=== PATIENT | female | born 1930 | race Caucasian/White ===

== ENCOUNTER 2016-08-16 22:23 | Emergency (ER) | payer MEDICARE, OTHER ==
[2016-08-16 22:31] VITALS: BP 125/61
--- NOTE | 2016-08-16 22:45 | EDM.PDOC ---
ED HPI EYE COMPLAINT - General Chief Complaint: Eye Problems Stated Complaint: L EYE PAIN Time Seen by Provider: 08/16/16 22:35 Source: Reports: Patient History Limitations: Reports: No limitations - History of Present Illness INITIAL COMMENTS - FREE TEXT/NARRATIVE: c/o gritty dry feeling to left eye for past 3 weeks has been using OTC moisture drops, Started to itch on Tuesday worse tonight and eyelid now red. No change in vision Severity: moderate Associated Symptoms (Eye): Reports: itching, eyelid redness. Denies: eyelid swelling, eyelid matting, orbital redness, FB sensation, decreased/blurred, sensitivity to light, curtain - Related Data Allergies/ADRs: Allergies BULMARO Inhibitors Allergy (Verified 08/16/16 22:31) Other Please update and replace other in Reaction field and remove this entry. Updated 02/07/2014 by SHANT due to system deletion of invalid similar allergy lisinopril Allergy (Verified 08/16/16 22:31) Cough losartan potassium [From Cozaar] Allergy (Verified 08/16/16 22:31) Cannot Remember Home Meds: Ambulatory Orders Medication Instructions Recorded Confirmed Acetaminophen [Pain & Fever] 500 mg PO ASDIRECTED PRN 09/28/13 08/16/16 Loratadine [Claritin RediTabs] 10 mg PO DAILY PRN 09/28/13 08/16/16 Metoprolol Tartrate 100 mg PO DAILY 09/28/13 08/16/16 Multivitamin [Multi-Vitamin Daily] 0.5 each PO DAILY 09/28/13 08/16/16 Warfarin [Coumadin] 2 mg PO DAILY 09/28/13 08/16/16 Ca Carb & Gluc/Mag Ox & Gluc 1 tab PO DAILY 02/20/15 08/16/16 [Calcium Magnesium Caplet] Calcium Carbonate/Vitamin D3 1 each PO DAILY 02/20/15 08/16/16 [Oyster Shell Calcium-Vit D Tab] Metoprolol Tartrate 50 mg PO DAILY 10/22/15 08/16/16 Aspirin [Halfprin] 81 mg PO DAILY 04/04/16 08/16/16 Citalopram Hydrobromide 10 mg PO DAILY 04/04/16 08/16/16 [Citalopram HBr] Famotidine [Take Home: Famotidine 20 mg PO BID 04/04/16 08/16/16 20 MG, 3 Tab Pack] Simvastatin [Zocor] 40 mg PO BEDTIME 04/04/16 08/16/16 Furosemide [Lasix] 20 mg PO BIDDIURETIC #30 tablet 04/07/16 08/16/16 Potassium Chloride [Klor-Con M20] 20 meq PO BID 08/16/16 08/16/16 Past Medical History HEENT History: Reports: Impaired vision Cardiovascular History: Reports: Blood clots/VTE/DVT, High cholesterol, Hypertension, [place], Stents Other Cardiovascular History: valvular heart disease Gastrointestinal History: Reports: GERD Genitourinary History: Reports: Other (see below) Other Genitourinary History: renal 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 Dermatologic History: Reports: Other (see below) Other Dermatologic History: Vein surg. 50 years ago - Infectious Disease History Infectious Disease History: Reports: Chicken pox, Measles, Mumps, Pertussis ( whooping cough) - Past Surgical History HEENT Surgical History: Reports: Cataract surgery Cardiovascular Surgical History: Reports: Coronary artery stent Musculoskeletal Surgical History: Reports: Hip replacement Social & Family History - Tobacco Use Smoking Status *Q: Never Smoker Second Hand Smoke Exposure: No - Caffeine Use Caffeine Use: Reports: None - Recreational Drug Use Recreational Drug Use: No ED ROS GENERAL - Review of Systems Review Of Systems: See Below HEENT: Reports: Other (left ey itches). Denies: Eye discharge, Vision change Skin: Reports: erythema (right eye lid) Neurological: Denies: Headache ED EXAM GENERAL W FULL EYE - Physical Exam Exam: See Below Exam Limited By: No limitations General Appearance: alert, mild distress Eye Exam: right eye: normal inspection, bilateral eye: EOMI, normal fundi, PERRL Eyelids: right: normal appearance, left: erythema Conjunctiva & Sclera: bilateral: normal appearance Extraocular Movements: bilateral: intact Pupillary Size: bilateral: 4 mm Pupillary Reaction: bilateral: brisk Anterior Chamber: bilateral: normal appearance Posterior Chamber: bilateral: normal funduscopic Ears: normal external exam, normal TMs Throat/Mouth: Normal inspection Head: atraumatic, normocephalic Neck: normal inspection Respiratory/Chest: no respiratory distress Cardiovascular: normal peripheral pulses Neurological: alert, oriented Skin Exam: Warm, Dry, Erythema (left upper and lower lids) Course - Vital Signs Last Recorded V/S: Last Vital Signs Temp 98.3 F 08/16/16 22:26 Pulse 93 08/16/16 22:26 Resp 18 08/16/16 22:26 BP 125/61 08/16/16 22:26 Pulse Ox 98 08/16/16 22:26 - Orders/Labs/Meds Meds: Medications Discontinued Medications Generic Name Dose Route Start Last Admin Trade Name Freq PRN Reason Stop Dose Admin Bacitracin/Polymyxin B Sulfate Confirm 08/16/16 23:25 08/16/16 23:35 Polysporin Ophth Oint Administered 08/16/16 23:26 Not Given Dose 3.5 gm .ROUTE .STK-MED ONE Departure - Departure Time of Disposition: 23:10 Disposition: Home, Self-Care 01 Condition: good Clinical Impression: Blepharitis of eyelid of left eye Qualifiers: Blepharitis type: unspecified type Eyelid: both upper and lower Qualified Code( s): H01.004 - Unspecified blepharitis left upper eyelid Instructions: Blepharitis, [id number] Referrals: Cheri Bailey MD [Primary Care Provider] - Forms: ED Department Discharge Additional Instructions: polymixin/neomycin/bacitracin eye ointment 4 times daily for one week follow up with eye Dr this week to recheck avoid rubbing eye
[2016-08-16] MEDS ORDERED: Bacitracin/Polymyxin B Ophth Oint 3.5 GM Tube EYELF ONE (23:25)
[2016-08-16] MEDS ORDERED: Bacitracin/Polymyxin B Ophth Oint 3.5 GM Tube ONE (23:25)
== END 2016-08-16 23:32 | disposition home or self-care (01) ==
LOC: DL.ED 22:23
DX: H01.004 Unspecified blepharitis left upper eyelid (principal); H54.7 Unspecified visual loss; E78.00 Pure hypercholesterolemia, unspecified; Z95.5 Presence of coronary angioplasty implant and graft; I11.9 Hypertensive heart disease without heart failure; Z88.8 Allergy status to other drugs, medicaments and biological substances; Z79.899 Other long term (current) drug therapy
CPT/HCPCS: 99282; A9270; 99283

== ENCOUNTER 2016-08-21 17:41 | Observation (INO) | payer MEDICARE, OTHER ==
--- NOTE | 2016-08-21 19:34 | EDM.PDOC ---
ED HPI GENERAL MEDICAL PROBLEM - General Chief Complaint: General Stated Complaint: PROBLEMS WALKING Time Seen by Provider: 08/21/16 19:31 Source of Information: Reports: Patient, Family History Limitations: Reports: No limitations - History of Present Illness INITIAL COMMENTS - FREE TEXT/NARRATIVE: Pt states been having leg weakness past 4 days, feels there is no strength, denies CP/SOB. but has h/o poor kidney function BUN last month was 83 per daughter. denies vertigo. appetite NL. - Related Data Allergies Allergy/AdvReac Type Severity Reaction Status Date / Time BULMARO Inhibitors Allergy Other Verified 08/21/16 19:05 lisinopril Allergy Cough Verified 08/21/16 19:05 losartan potassium Allergy Cannot Verified 08/21/16 19:05 [From [facility]] Remember Home Meds: Home Meds Acetaminophen [Pain & Fever] 500 mg PO ASDIRECTED PRN 09/28/13 [History] Loratadine [Claritin RediTabs] 10 mg PO DAILY PRN 09/28/13 [History] Metoprolol Tartrate 100 mg PO DAILY 09/28/13 [History] Multivitamin [Multi-Vitamin Daily] 0.5 each PO DAILY 09/28/13 [History] Warfarin [Coumadin] 2 mg PO DAILY 09/28/13 [History] Ca Carb & Gluc/Mag Ox & Gluc [Calcium Magnesium Caplet] 1 tab PO DAILY 02/20/15 [History] Calcium Carbonate/Vitamin D3 [Oyster Shell Calcium-Vit D Tab] 1 each PO DAILY [History] Metoprolol Tartrate 50 mg PO DAILY 10/22/15 [History] Aspirin [Halfprin] 81 mg PO DAILY 04/04/16 [History] Citalopram Hydrobromide [Citalopram HBr] 10 mg PO DAILY 04/04/16 [History] Famotidine [Take Home: Famotidine 20 MG, 3 Tab Pack] 20 mg PO BID 04/04/16 [ History] Simvastatin [Zocor] 40 mg PO BEDTIME 04/04/16 [History] Potassium Chloride [Klor-Con M20] 20 meq PO BID 08/16/16 [History] Furosemide [Lasix] 20 mg PO DAILY 08/21/16 [History] Past Medical History HEENT History: Reports: Impaired vision Cardiovascular History: Reports: Blood clots/VTE/DVT, High cholesterol, Hypertension, [place], Stents Other Cardiovascular History: valvular heart disease Gastrointestinal History: Reports: GERD Genitourinary History: Reports: Other (see below) Other Genitourinary History: 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 Dermatologic History: Reports: Other (see below) Other Dermatologic History: Vein surg. 50 years ago - Infectious Disease History Infectious Disease History: Reports: Chicken pox, Measles, Mumps, Pertussis ( whooping cough) - Past Surgical History HEENT Surgical History: Reports: Cataract surgery Cardiovascular Surgical History: Reports: Coronary artery stent Musculoskeletal Surgical History: Reports: Hip replacement Social & Family History - Family History Family Medical History: Noncontributory - Tobacco Use Smoking Status *Q: Never Smoker Second Hand Smoke Exposure: No - Caffeine Use Caffeine Use: Reports: Coffee - Recreational Drug Use Recreational Drug Use: No ED ROS GENERAL - Review of Systems Review Of Systems: ROS reveals no pertinent complaints other than HPI. ED EXAM, GENERAL - Physical Exam Exam: See Below Exam Limited By: No limitations General Appearance: alert, WD/WN, no apparent distress Eye Exam: bilateral eye: PERRL (pupils ess ER @ 4mm) Ears: hearing grossly normal Throat/Mouth: Normal voice, No airway compromise Head: atraumatic Neck: non-tender, full range of motion Respiratory/Chest: no respiratory distress, lungs clear, normal breath sounds, no accessory muscle use Cardiovascular: regular rate, rhythm GI/Abdominal: soft, non tender Extremities: normal inspection, no pedal edema Neurological: alert, oriented, normal cognition, normal gait, no motor/sensory deficits Psychiatric: normal affect, normal mood Skin Exam: Warm, Dry Lymphatic: no adenopathy Course - Vital Signs Last Recorded V/S: Last Vital Signs Temp 36.4 C 08/21/16 20:38 Pulse 80 08/21/16 20:38 Resp 18 08/21/16 20:38 BP 137/67 08/21/16 20:38 Pulse Ox 96 08/21/16 20:38 - Orders/Labs/Meds Orders: Active Orders 24 hr Category Date Time Status Head wo Cont [CT] Urgent Exams 08/21/16 19:19 Taken Labs: Laboratory Tests 08/21/16 08/21/16 08/21/16 Range/Units 19:26 19:26 19:26 WBC 8.2 (5.0-10.0) 10^3/uL RBC 5.99 H (4.2-5.4) 10^6/uL Hgb 15.2 (12.0-16.0) g/dL Hct 45.2 (37.0-47.0) % MCV 75.5 L (80-100) fL MCH 25.4 L (27.0-34.0) pg MCHC 33.6 (33.0-35.0) g/dL Plt Count 168 (150-450) 10^3/uL Neut % (Auto) 63.5 (42.2-75.2) % Lymph % (Auto) 27.8 (20.5-50.1) % [place] % (Auto) 7.5 (2-8) % Eos % (Auto) 0.8 L (1.0-3.0) % Baso % (Auto) 0.4 (0.0-1.0) % PT 20.6 H (9.0-12.0) SEC INR 2.0 H (0.9-1.2) Sodium 136 (135-145) mmol/L Potassium 2.8 L (3.6-5.0) mmol/L Chloride 89 L (101-111) mmol/L Carbon Dioxide 35.0 H (21.0-31.0) mmol/L Anion Gap 14.8 BUN 73 H (7-18) mg/dL Creatinine 2.3 H (0.6-1.3) mg/dL Est Cr Clr Drug Dosing 14.40 mL/min Estimated GFR (MDRD) 20 BUN/Creatinine Ratio 31.73 Glucose 223 H (74-105) mg/dL Calcium 9.4 (8.4-10.2) mg/dl Total Bilirubin 0.9 (0.2-1.0) mg/dL AST 39 (10-42) IU/L ALT 34 (10-60) IU/L Alkaline Phosphatase 92 (42-121) IU/L Troponin I 0.03 H* (0.00-0.02) ng/ml B-Natriuretic Peptide (0-100) pg/ml Total Protein 7.7 (6.7-8.2) g/dl Albumin 3.8 (3.2-5.5) g/dl Globulin 3.9 Albumin/Globulin Ratio 0.97 08/21/16 Range/Units 19:26 WBC (5.0-10.0) 10^3/uL RBC (4.2-5.4) 10^6/uL Hgb (12.0-16.0) g/dL Hct (37.0-47.0) % MCV (80-100) fL MCH (27.0-34.0) pg MCHC (33.0-35.0) g/dL Plt Count (150-450) 10^3/uL Neut % (Auto) (42.2-75.2) % Lymph % (Auto) (20.5-50.1) % [place] % (Auto) (2-8) % Eos % (Auto) (1.0-3.0) % Baso % (Auto) (0.0-1.0) % PT (9.0-12.0) SEC INR (0.9-1.2) Sodium (135-145) mmol/L Potassium (3.6-5.0) mmol/L Chloride (101-111) mmol/L Carbon Dioxide (21.0-31.0) mmol/L Anion Gap BUN (7-18) mg/dL Creatinine (0.6-1.3) mg/dL Est Cr Clr Drug Dosing mL/min Estimated GFR (MDRD) BUN/Creatinine Ratio Glucose (74-105) mg/dL Calcium (8.4-10.2) mg/dl Total Bilirubin (0.2-1.0) mg/dL AST (10-42) IU/L ALT (10-60) IU/L Alkaline Phosphatase (42-121) IU/L Troponin I (0.00-0.02) ng/ml B-Natriuretic Peptide 166 H (0-100) pg/ml Total Protein (6.7-8.2) g/dl Albumin (3.2-5.5) g/dl Globulin Albumin/Globulin Ratio - Re-Assessments/Exams Free Text/Narrative Re-Assessment/Exam: 08/21/16 20:47 results discussed with Pt & daughter. case discussed with Dr Lyons who kindly admitted Pt to observation. Departure - Departure Time of Disposition: 20:48 Disposition: Refer to Observation Condition: good Clinical Impression: CHF, Congestive heart failure, Hypokalemia, Orthopnea Forms: ED Department Discharge - My Orders Last 24 Hours: My Active Orders 08/21/16 19:19 Head wo Cont [CT] Urgent - Assessment/Plan Last 24 Hours: My Active Orders 08/21/16 19:19 Head wo Cont [CT] Urgent
[2016-08-21] MEDS ORDERED: Zolpidem 5 MG Tab PO PRN (22:02)
[2016-08-21] MEDS ORDERED: Ondansetron 4 MG Tab.DIS PO PRN (22:02)
[2016-08-21] MEDS ORDERED: Sodium Chloride 0.9% 10 ML Syringe FLUSH PRN (22:02)
--- NOTE | 2016-08-21 22:24 | PCM.HP ---
H&P History of Present Illness - General Date of Service: 08/21/16 Admit Problem/Dx: Admission Diagnosis/Problem Admission Diagnosis/Problem Weakness Source of Information: Patient - History of Present Illness Initial Comments - Free Text/Narative: the patient presented with about 5-6 days of progressive weakness She has been living independently with sister She feels that the weakness is worse with activity, has difficulty moving at home. The patient has a history of chronic kidney disease stage III She has been working with nephrology to optimize diuretics Due to elevated BUN the patient's metolazone was discontinued the beginning of July Subsequently she noted increased swelling and the metolazone was restarted on 23 July The patient has had borderline hypokalemia at that time She continued potassium supplement but did not increase the dose. - Related Data Allergies/Adverse Reactions: Allergies Allergy/AdvReac Type Severity Reaction Status Date / Time BULMARO Inhibitors Allergy Other Verified 08/21/16 19:05 lisinopril Allergy Cough Verified 08/21/16 19:05 losartan potassium Allergy Cannot Verified 08/21/16 19:05 [[facility]] Remember Home Medications: Home Meds Acetaminophen [Pain & Fever] 500 mg PO ASDIRECTED PRN 09/28/13 [History] Loratadine [Claritin RediTabs] 10 mg PO DAILY PRN 09/28/13 [History] Multivitamin [Multi-Vitamin Daily] 0.5 each PO DAILY 09/28/13 [History] Warfarin [Coumadin] 3 mg PO DAILY 09/28/13 [History] Ca Carb & Gluc/Mag Ox & Gluc [Calcium Magnesium Caplet] 1 tab PO DAILY 02/20/15 [History] Calcium Carbonate/Vitamin D3 [Oyster Shell Calcium-Vit D Tab] 1 each PO DAILY [History] Citalopram Hydrobromide [Citalopram HBr] 10 mg PO DAILY 04/04/16 [History] Famotidine [Take Home: Famotidine 20 MG, 3 Tab Pack] 20 mg PO BID 04/04/16 [ History] Potassium Chloride [Klor-Con M20] 20 meq PO BID 08/16/16 [History] Aspirin [Ecotrin] 81 mg PO DAILY 08/21/16 [History] Furosemide [Lasix] 40 mg PO DAILY 08/21/16 [History] Metolazone [Zaroxolyn] 2.5 mg PO .Q48H 08/21/16 [History] Metoprolol Tartrate 50 mg PO ACDINNER 08/21/16 [History] Metoprolol Tartrate 100 mg PO DAILY 08/21/16 [History] atorvaSTATin [Lipitor] 40 mg PO BEDTIME 08/21/16 [History] Past Medical History HEENT History: Reports: Impaired vision Cardiovascular History: Reports: Blood clots/VTE/DVT, High cholesterol, Hypertension, [place], Stents Other Cardiovascular History: valvular heart disease Respiratory History: Reports: None Gastrointestinal History: Reports: GERD Genitourinary History: Reports: Chronic renal insuffiency, Other (see below) Other Genitourinary History: 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 Dermatologic History: Reports: Other (see below) Other Dermatologic History: Vein surg. 50 years ago - Infectious Disease History Infectious Disease History: Reports: Chicken pox, Measles, Mumps, Pertussis ( whooping cough) - Past Surgical History HEENT Surgical History: Reports: Cataract surgery Cardiovascular Surgical History: Reports: Coronary artery stent Musculoskeletal Surgical History: Reports: Hip replacement Social & Family History - Family History Family Medical History: Noncontributory - Tobacco Use Smoking Status *Q: Never Smoker Second Hand Smoke Exposure: No - Caffeine Use Caffeine Use: Reports: Coffee - Recreational Drug Use Recreational Drug Use: No H&P Review of Systems - Review of Systems: Review Of Systems: See Below General: Denies: fever Pulmonary: Denies: Shortness of Breath, Wheezing Cardiovascular: Denies: edema Gastrointestinal: Denies: Abdominal pain Genitourinary: Denies: dysuria Psychiatric: Denies: confusion Neurological: Denies: Dizziness Exam - Exam Exam: See Below - Vital Signs Vital Signs: Last Vital Signs Temp 36.9 C 08/21/16 21:14 Pulse 80 08/21/16 21:14 Resp 16 08/21/16 21:14 BP 145/60 H 08/21/16 21:14 Pulse Ox 99 08/21/16 21:14 Weight: 70.307 kg - Exam Quality Assessment: No: supplemental oxygen General: alert, oriented HEENT: EOMI Neck: supple Lungs: Clear to auscultation, Normal respiratory effort Cardiovascular: regular rate, regular rhythm Abdomen: normal bowel sounds, soft Back Exam: normal inspection Extremities: normal inspection. No: edema Neuro Extensive - Mental Status: alert, oriented x3, normal mood/affect, normal cognition, memory intact Neuro Extensive - Motor, Sensory, Reflexes: CN II-XII intact Psychiatric: alert, normal affect, normal mood - Patient Data Result Diagrams: 08/21/16 19:26 08/21/16 19:26 *Q Meaningful Use (ADM) - VTE *Q VTE Criteria *Q: - Stroke *Q Stroke Criteria *Q: - AMI *Q AMI Criteria *Q: - Problem List (1) Hypokalemia SNOMED Code(s): 82696871 ICD Code: E87.6 - HYPOKALEMIA Status: Acute Current Visit: Yes (2) Atrial fibrillation SNOMED Code(s): 72588912 ICD Code: I48.91 - UNSPECIFIED ATRIAL FIBRILLATION Status: Acute Current Visit: No Qualifiers: Atrial fibrillation type: unspecified Qualified Code(s): I48.91 - Unspecified atrial fibrillation (3) Hypertension SNOMED Code(s): 15298174 ICD Code: I10 - ESSENTIAL (PRIMARY) HYPERTENSION Status: Acute Current Visit: No Qualifiers: Hypertension type: unspecified secondary hypertension Qualified Code(s): I15.9 - Secondary hypertension, unspecified Problem List Initiated/Reviewed/Updated: Yes Orders Last 24hrs: Active Orders 24 hr Category Date Time Status Patient Status [ADT] Routine ADT 08/21/16 22:05 Ordered Antiembolic Devices [RC] PER UNIT ROUTINE Care 08/21/16 22:06 Ordered Blood Glucose Check, Bedside [RC] QIDACANDBED Care 08/21/16 22:02 Ordered Oxygen Therapy [RC] PRN Care 08/21/16 22:05 Ordered Peripheral IV Care [RC] . DIRECTED Care 08/21/16 22:06 Ordered Telemetry Monitoring [Cardiac Monitoring] [RC] . Care 08/21/16 21:30 Ordered DIRECTED Up With Assistance [RC] ASDIRECTED Care 08/21/16 22:02 Ordered VTE/DVT Education [RC] PER UNIT ROUTINE Care 08/21/16 22:05 Ordered Vital Signs [RC] Q4H Care 08/21/16 22:05 Ordered Regular Diet [DIET] Diet 08/21/16 Breakfast Ordered BASIC METABOLIC PANEL,BMP [CHEM] AM Lab 08/22/16 05:15 Ordered CBC WITH AUTO DIFF [HEME] AM Lab 08/22/16 05:15 Ordered INR,PT,PROTHROMBIN TIME [COAG] AM Lab 08/22/16 05:15 Ordered TROPONIN I [CHEM] AM Lab 08/22/16 05:11 Ordered Acetaminophen [Tylenol] Med 08/21/16 22:02 Ordered 650 mg PO Q4H PRN Aspirin [Halfprin] Med 08/22/16 09:00 Ordered 81 mg PO DAILY Bacitracin/Polymyxin B [Polysporin Ophth Oint] Med 08/21/16 23:00 Ordered 1 gm EYELF TID Citalopram Hydrobromide [Citalopram HBr] Med 08/22/16 09:00 Ordered 10 mg PO DAILY Famotidine [Pepcid] Med 08/22/16 09:00 Pending 20 mg PO BID Furosemide [Lasix] Med 08/22/16 09:00 Ordered 40 mg PO DAILY Insulin Aspart [NovoLOG] Med 08/22/16 07:00 Ordered See Protocol SUBCUT QIDACANDBED Metolazone [Zaroxolyn] Med 08/22/16 09:00 Ordered 2.5 mg PO .Q48H Metoprolol Tartrate Med 08/22/16 09:00 Ordered 100 mg PO DAILY Metoprolol Tartrate [Lopressor] Med 08/22/16 17:00 Ordered 50 mg PO ACDINNER Multivitamin [Multi-Vitamin Daily] Med 08/22/16 09:00 Ordered 0.5 each PO DAILY Ondansetron [Zofran ODT] Med 08/21/16 22:02 Ordered 4 mg PO Q4H PRN Potassium Chloride [KCl 10 MEQ in Water 100 ML] 10 meq Med 08/21/16 22:15 Ordered Premix Bag 1 bag IV .Q2H Potassium Chloride [Klor-Con M20] Med 08/22/16 09:00 Stop Req 20 meq PO BID Potassium Chloride [Klor-Con M20] Med 08/22/16 08:00 Ordered 20 meq PO TIDAC Sodium Chloride 0.9% [Normal Saline] 1,000 ml Med 08/21/16 22:15 Ordered IV ASDIRECTED Sodium Chloride 0.9% [Saline Flush] Med 08/21/16 22:02 Ordered 10 ml FLUSH ASDIRECTED PRN Warfarin [Coumadin] Med 08/22/16 09:00 Ordered 3 mg PO DAILY Zolpidem [Ambien] Med 08/21/16 22:02 Ordered 5 mg PO BEDTIME PRN atorvaSTATin [Lipitor] Med 08/22/16 21:00 Ordered 40 mg PO BEDTIME Antiembolic Hose [OM.PC] Per Unit Routine Oth 08/21/16 22:06 Ordered Peripheral IV Insertion Adult [OM.PC] Routine Oth 08/21/16 22:02 Ordered Resuscitation Status Routine Resus Stat 08/21/16 22:02 Ordered Medication Orders Acetaminophen (Tylenol) 650 mg PO Q4H PRN PRN Reason: Pain (Mild 1-3)/fever Aspirin (Halfprin) 81 mg PO DAILY JHOAN Bacitracin/Polymyxin B Sulfate (Polysporin Ophth Oint) 1 gm EYELF TID JHOAN Citalopram Hydrobromide (Celexa) 10 mg PO DAILY JHOAN Famotidine (Pepcid) 20 mg PO BID JHOAN Furosemide (Lasix) 40 mg PO DAILY JHOAN Sodium Chloride (Normal Saline) 1,000 mls @ 30 mls/hr IV ASDIRECTED JHOAN Potassium Chloride 10 meq/ (Premix) 100 mls @ 50 mls/hr IV .Q2H JHOAN Insulin Aspart (Novolog) 0 unit SUBCUT QIDACANDBED JHOAN PRN Reason: Protocol Metolazone (Zaroxolyn) 2.5 mg PO .Q48H JHOAN Metoprolol Tartrate (Lopressor) 50 mg PO ACDINNER [facility] Multivitamins (Thera) 0.5 each PO DAILY [facility] Non-Formulary Medication (Atorvastatin [Lipitor]) 40 mg PO BEDTIME JHOAN Non-Formulary Medication (Metoprolol Tartrate) 100 mg PO DAILY JHOAN Non-Formulary Medication (Potassium Chloride [Klor-Con M20]) 20 meq PO TIDAC JHOAN Ondansetron HCl (Zofran Odt) 4 mg PO Q4H PRN PRN Reason: nausea, able to take PO Sodium Chloride (Saline Flush) 10 ml FLUSH ASDIRECTED PRN PRN Reason: Keep Vein Open Warfarin Sodium (Coumadin) 3 mg PO DAILY JHOAN Zolpidem Tartrate (Ambien) 5 mg PO BEDTIME PRN PRN Reason: Sleep Assessment/Plan Comment:: Weakness Likely due to hypokalemia No apparent CVA We'll monitor, treat with physical therapy Severe hypokalemia in the setting of chronic kidney disease stage III Likely due to diuretics We will replace it with IV potassium Increase p.o. supplement to 20 meq tid Recheck electrolytes in the morning Chronic kidney disease stage III For now continue diuretics, replace potassium, follow electrolytes Will follow up with nephrology Hyperglycemia With a history of impaired glucose tolerance Check blood sugars 4 times a day and use supplemental insulin as needed Coronary artery disease Troponin borderline This is likely secondary to renal insufficiency Monitor on telemetry Recheck troponin in the morning Treat with aspirin, metoprolol, Lipitor Hypertension Treat with metoprolol Atrial fibrillation Her rate is controlled with metoprolol Continue anticoagulation with Coumadin Recheck INR periodically DVT prophylaxis Full dose anticoagulation with Coumadin CODE STATUS was discussed with the patient and daughter Patient wished to be DNR
[2016-08-21] MEDS: Potassium Chloride 10 MEQ in Premix Bag 1 BAG IV SCH (22:57)
[2016-08-21] MEDS: Sodium Chloride 0.9% 1,000 ML IV SCH (23:00)
[2016-08-21] MEDS: Bacitracin/Polymyxin B Ophth Oint 3.5 GM Tube EYELF SCH (23:05)
[2016-08-21] MEDS: Acetaminophen 325 MG Tab PO PRN (23:05)
[2016-08-22] MEDS: Potassium Chloride 10 MEQ in Premix Bag 1 BAG IV SCH ×7 (01:03→16:58)
[2016-08-22] MEDS: Acetaminophen 325 MG Tab PO PRN (05:17)
[2016-08-22] MEDS ORDERED: Potassium Chloride 10 MEQ Tab.ER PO SCH (08:00)
[2016-08-22] MEDS: Potassium Chloride 10 MEQ Tab.ER PO SCH ×3 (08:14→17:16)
[2016-08-22] MEDS: Insulin Aspart 100 Units/ML 3 ML Pen SUBCUT SCH ×4 (08:15→21:18)
[2016-08-22] MEDS ORDERED: Metoprolol Succinate 50 MG Tab.ER PO SCH (09:00)
[2016-08-22] MEDS ORDERED: Famotidine 20 MG Tab PO SCH (09:00)
[2016-08-22] MEDS: Multivitamins,Therapeutic Tab PO SCH (09:17)
[2016-08-22] MEDS: Citalopram 20 MG Tab PO SCH (09:19)
[2016-08-22] MEDS: Metoprolol Tartrate 50 MG Tab PO SCH ×2 (09:21→17:19)
[2016-08-22] MEDS: Aspirin 81 MG Tab.EC PO SCH (09:23)
[2016-08-22] MEDS: Furosemide 40 MG Tab PO SCH (09:23)
[2016-08-22] MEDS: Bacitracin/Polymyxin B Ophth Oint 3.5 GM Tube EYELF SCH ×3 (09:24→21:23)
--- NOTE | 2016-08-22 10:04 | PCM.PN ---
- General Info Date of Service: 08/22/16 Subjective Update: had moderate leg cramps overnight, better with heat packs, no burning of the IV site no sob, no cp feeling better BSs have been elevated - Review of Systems General: Reports: Weakness. Denies: Fever Pulmonary: Denies: shortness of breath Cardiovascular: Denies: Chest Pain Gastrointestinal: Denies: Abdominal pain, Nausea, Vomiting Genitourinary: Denies: dysuria - Patient Data Vitals - most recent: Last Vital Signs Temp 36.4 C 08/22/16 07:29 Pulse 86 08/22/16 09:21 Resp 20 08/22/16 07:29 BP 118/52 L 08/22/16 09:21 Pulse Ox 98 08/22/16 07:29 Weight - most recent: 70.307 kg I&O - last 24 hours: Intake & Output 08/21/16 08/22/16 08/22/16 22:59 06:59 14:59 Intake Total 910 365 Output Total 400 Balance 510 365 Lab Results last 24 hrs: Laboratory Results - last 24 hr 08/22/16 08/22/16 08/22/16 Range/Units 06:00 06:00 06:00 WBC 6.9 (5.0-10.0) 10^3/uL RBC 5.77 H (4.2-5.4) 10^6/uL Hgb 14.7 (12.0-16.0) g/dL Hct 43.9 (37.0-47.0) % MCV 76.1 L (80-100) fL MCH 25.5 L (27.0-34.0) pg MCHC 33.5 (33.0-35.0) g/dL Plt Count 154 (150-450) 10^3/uL Neut % (Auto) 54.9 (42.2-75.2) % Lymph % (Auto) 35.2 (20.5-50.1) % [place] % (Auto) 8.2 H (2-8) % Eos % (Auto) 1.3 (1.0-3.0) % Baso % (Auto) 0.4 (0.0-1.0) % PT 20.3 H (9.0-12.0) SEC INR 2.0 H (0.9-1.2) Sodium 137 (135-145) mmol/L Potassium 3.2 L (3.6-5.0) mmol/L Chloride 90 L (101-111) mmol/L Carbon Dioxide 38.0 H (21.0-31.0) mmol/L Anion Gap 12.2 BUN 66 H (7-18) mg/dL Creatinine 2.2 H (0.6-1.3) mg/dL Est Cr Clr Drug Dosing 15.06 mL/min Estimated GFR (MDRD) 21 Glucose 164 H (74-105) mg/dL POC Glucose (83-110) mg/dl Calcium 8.9 (8.4-10.2) mg/dl Troponin I 0.04 H* (0.00-0.02) ng/ml 08/22/16 Range/Units 07:34 WBC (5.0-10.0) 10^3/uL RBC (4.2-5.4) 10^6/uL Hgb (12.0-16.0) g/dL Hct (37.0-47.0) % MCV (80-100) fL MCH (27.0-34.0) pg MCHC (33.0-35.0) g/dL Plt Count (150-450) 10^3/uL Neut % (Auto) (42.2-75.2) % Lymph % (Auto) (20.5-50.1) % [place] % (Auto) (2-8) % Eos % (Auto) (1.0-3.0) % Baso % (Auto) (0.0-1.0) % PT (9.0-12.0) SEC INR (0.9-1.2) Sodium (135-145) mmol/L Potassium (3.6-5.0) mmol/L Chloride (101-111) mmol/L Carbon Dioxide (21.0-31.0) mmol/L Anion Gap BUN (7-18) mg/dL Creatinine (0.6-1.3) mg/dL Est Cr Clr Drug Dosing mL/min Estimated GFR (MDRD) Glucose (74-105) mg/dL POC Glucose 158 H (83-110) mg/dl Calcium (8.4-10.2) mg/dl Troponin I (0.00-0.02) ng/ml Med Orders - Current: Current Medications Acetaminophen (Tylenol) 650 mg PO Q4H PRN PRN Reason: Pain (Mild 1-3)/fever Last Admin: 08/22/16 05:17 Dose: 650 mg Aspirin (Halfprin) 81 mg PO DAILY [facility] Last Admin: 08/22/16 09:23 Dose: 81 mg Atorvastatin Calcium (Lipitor) 40 mg PO BEDTIME [facility] Bacitracin/Polymyxin B Sulfate (Polysporin Ophth Oint) 0 gm EYELF TID [facility] Last Admin: 08/22/16 09:24 Dose: 1 applic Citalopram Hydrobromide (Celexa) 10 mg PO DAILY [facility] Last Admin: 08/22/16 09:19 Dose: 10 mg Famotidine (Pepcid) 10 mg PO BID [facility] Furosemide (Lasix) 40 mg PO DAILY [facility] Last Admin: 08/22/16 09:23 Dose: 40 mg Sodium Chloride (Normal Saline) 1,000 mls @ 30 mls/hr IV ASDIRECTED [facility] Last Admin: 08/21/16 23:00 Dose: 30 mls/hr Potassium Chloride 10 meq/ (Premix) 100 mls @ 50 mls/hr IV .Q2 [facility] Insulin Aspart (Novolog) 0 unit SUBCUT QIDACANDBED [facility] PRN Reason: Protocol Last Admin: 08/22/16 08:15 Dose: 2 units Metolazone (Zaroxolyn) 2.5 mg PO Q48H [facility] Metoprolol Tartrate (Lopressor) 100 mg PO DAILY [facility] Last Admin: 08/22/16 09:21 Dose: 100 mg Metoprolol Tartrate (Lopressor) 50 mg PO ACDINNER [facility] Multivitamins (Thera) 0.5 each PO DAILY [facility] Last Admin: 08/22/16 09:17 Dose: 0.5 each Ondansetron HCl (Zofran Odt) 4 mg PO Q4H PRN PRN Reason: nausea, able to take PO Potassium Chloride (Klor-Con 10) 20 meq PO TIDAC [facility] Last Admin: 08/22/16 08:14 Dose: 20 meq Sodium Chloride (Saline Flush) 10 ml FLUSH ASDIRECTED PRN PRN Reason: Keep Vein Open Warfarin Sodium (Coumadin) 3 mg PO DAILY@1400 [facility] Zolpidem Tartrate (Ambien) 5 mg PO BEDTIME PRN PRN Reason: Sleep Discontinued Medications Famotidine (Pepcid) 20 mg PO BID [facility] Potassium Chloride 10 meq/ (Premix) 100 mls @ 50 mls/hr IV Q2H [facility] Stop: 08/22/16 06:14 Last Admin: 08/22/16 04:58 Dose: 50 mls/hr Metoprolol Succinate (Toprol Xl) 150 mg PO DAILY [facility] Potassium Chloride (Klor-Con 10) 20 meq PO BIDMEALS [facility] - Exam General: alert, oriented Neck: supple Lungs: Clear to auscultation, Normal respiratory effort Cardiovascular: Irregular Rhythm Abdomen: bowel sounds present, soft, no tenderness, no distension Extremities: no edema Skin: warm, dry, intact Neurological: no new focal deficit Psy/Mental Status: alert, normal affect, normal mood - Problem List & Annotations (1) Hypokalemia SNOMED Code(s): 49633183 Code(s): E87.6 - HYPOKALEMIA Status: Acute Current Visit: Yes (2) Atrial fibrillation SNOMED Code(s): 52824547 Code(s): I48.91 - UNSPECIFIED ATRIAL FIBRILLATION Status: Acute Current Visit: No Qualifiers: Atrial fibrillation type: unspecified Qualified Code(s): I48.91 - Unspecified atrial fibrillation (3) Hypertension SNOMED Code(s): 50253486 Code(s): I10 - ESSENTIAL (PRIMARY) HYPERTENSION Status: Acute Current Visit: No Qualifiers: Hypertension type: unspecified secondary hypertension Qualified Code(s): I15.9 - Secondary hypertension, unspecified - Problem List Review Problem List Initiated/Reviewed/Updated: Yes - My Orders Last 24 Hours: My Active Orders 08/21/16 23:00 Bacitracin/Polymyxin B [Polysporin Ophth Oint] 0 gm EYELF TID 08/22/16 07:00 Insulin Aspart [NovoLOG] See Protocol SUBCUT QIDACANDBED 08/22/16 08:00 Potassium Chloride [Klor-Con 10] 20 meq PO TIDAC 08/22/16 09:00 Metoprolol Tartrate [Lopressor] 100 mg PO DAILY 08/22/16 09:43 Famotidine [Pepcid] 10 mg PO BID 08/22/16 10:00 Potassium Chloride [KCl 10 MEQ in Water 100 ML] 10 meq Premix Bag 1 bag IV .Q2 08/22/16 17:00 Metoprolol Tartrate [Lopressor] 50 mg PO ACDINNER 08/22/16 20:00 BASIC METABOLIC PANEL,BMP [CHEM] Timed 08/22/16 Lunch Consistent Carbohydrate Diet [DIET] 08/23/16 05:15 BASIC METABOLIC PANEL,BMP [CHEM] AM CBC WITH AUTO DIFF [HEME] AM - Plan Plan:: Weakness Likely due to hypokalemia No apparent CVA We'll monitor, treat with physical therapy Severe hypokalemia in the setting of chronic kidney disease stage III Likely due to diuretics improved We will further replace it with IV potassium Increase p.o. supplement to 20 meq tid Recheck electrolytes in the morning Chronic kidney disease stage III For now continue diuretics, replace potassium, follow electrolytes Will follow up with nephrology diabetes Uncontrolled blood sugars Start low-dose glipizide Check blood sugars 4 times a day and use supplemental insulin as needed and hypoglycemia treatment as needed Coronary artery disease Troponin borderline This is likely secondary to renal insufficiency no significant arrhythmia on telemetry Treat with aspirin, metoprolol, Lipitor Hypertension Treat with metoprolol Atrial fibrillation Her rate is controlled with metoprolol Continue anticoagulation with Coumadin Recheck INR periodically DVT prophylaxis Full dose anticoagulation with Coumadin CODE STATUS was discussed with the patient and daughter on 08/21/16 Patient wished to be DNR
[2016-08-22] MEDS: Famotidine 20 MG Tab PO SCH ×2 (10:09→21:16)
[2016-08-22] MEDS: glipiZIDE 2.5 MG Tab.ER PO SCH (10:56)
[2016-08-22] MEDS: Warfarin 2 MG Tab PO SCH (14:09)
[2016-08-22] MEDS ORDERED: atorvaSTATin 20 MG Tab PO SCH (21:00)
[2016-08-23] MEDS ORDERED: Metolazone 2.5 MG Tab PO SCH (08:00)
[2016-08-23] MEDS: glipiZIDE 2.5 MG Tab.ER PO SCH (08:15)
[2016-08-23] MEDS: Insulin Aspart 100 Units/ML 3 ML Pen SUBCUT SCH ×3 (08:15→17:31)
[2016-08-23] MEDS: Potassium Chloride 10 MEQ Tab.ER PO SCH ×3 (08:16→17:00)
[2016-08-23] MEDS: Aspirin 81 MG Tab.EC PO SCH (08:17)
[2016-08-23] MEDS: Citalopram 20 MG Tab PO SCH (08:17)
[2016-08-23] MEDS: Furosemide 40 MG Tab PO SCH (08:18)
[2016-08-23] MEDS: Metoprolol Tartrate 50 MG Tab PO SCH ×2 (08:18→17:14)
[2016-08-23] MEDS: Famotidine 20 MG Tab PO SCH (08:19)
[2016-08-23] MEDS: Multivitamins,Therapeutic Tab PO SCH (08:20)
[2016-08-23] MEDS: Bacitracin/Polymyxin B Ophth Oint 3.5 GM Tube EYELF SCH ×2 (08:21→13:47)
[2016-08-23] MEDS: Potassium Chloride 10 MEQ in Premix Bag 1 BAG IV SCH ×5 (10:07→15:58)
[2016-08-23] MEDS: Warfarin 2 MG Tab PO SCH (13:37)
[2016-08-23] MEDS: Sodium Chloride 0.9% 1,000 ML IV SCH (13:41)
[2016-08-23 17:15] VITALS: BP 99/57
--- NOTE | 2016-08-23 18:11 | PCM.DCSUM1 ---
Discharge Summary - Hospital Course Free Text/Narrative:: history of chronic kidney disease stage IV presented with weakness, was found to have hypokalemia Weakness Likely due to hypokalemia No apparent CVA improved with replacing to hypokalemia and with physical therapy Severe hypokalemia in the setting of chronic kidney disease stage IV Likely due to diuretics resolved Increase p.o. supplement to 20 meq tid Recheck electrolytes on with followup with her primary care doctor Chronic kidney disease stage III For now continue diuretics, replace potassium, follow electrolytes Will follow up with nephrology diabetes Uncontrolled blood sugars Started low-dose glipizide Coronary artery disease Troponin borderline This is likely secondary to renal insufficiency no significant arrhythmia on telemetry Treat with aspirin, metoprolol, Lipitor Hypertension Treat with metoprolol Atrial fibrillation Her rate is controlled with metoprolol Continue anticoagulation with Coumadin Recheck INR periodically - Discharge Data Discharge Date: 08/23/16 Discharge Disposition: Home, Self-Care 01 Condition: Good - Discharge Diagnosis/Problem(s) (1) Hypokalemia SNOMED Code(s): 92110661 ICD Code: E87.6 - HYPOKALEMIA Status: Acute Current Visit: Yes (2) Atrial fibrillation SNOMED Code(s): 93695319 ICD Code: I48.91 - UNSPECIFIED ATRIAL FIBRILLATION Status: Acute Current Visit: No Qualifiers: Atrial fibrillation type: unspecified Qualified Code(s): I48.91 - Unspecified atrial fibrillation (3) Hypertension SNOMED Code(s): 02708878 ICD Code: I10 - ESSENTIAL (PRIMARY) HYPERTENSION Status: Acute Current Visit: No Qualifiers: Hypertension type: unspecified secondary hypertension Qualified Code(s): I15.9 - Secondary hypertension, unspecified - Patient Instructions Diet: Heart Healthy Diet Activity: As Tolerated - Discharge Plan Prescriptions/Med Rec: Potassium Chloride [Klor-Con 10] 20 meq PO TIDAC #90 tab.er glipiZIDE [Glucotrol XL] 2.5 mg PO DAILY@0800 #30 tab.er Home Medications: Home Meds Acetaminophen [Pain & Fever] 500 mg PO ASDIRECTED PRN 09/28/13 [History] Loratadine [Claritin RediTabs] 10 mg PO DAILY PRN 09/28/13 [History] Multivitamin [Multi-Vitamin Daily] 0.5 each PO DAILY 09/28/13 [History] Warfarin [Coumadin] 3 mg PO DAILY 09/28/13 [History] Ca Carb & Gluc/Mag Ox & Gluc [Calcium Magnesium Caplet] 1 tab PO DAILY 02/20/15 [History] Calcium Carbonate/Vitamin D3 [Oyster Shell Calcium-Vit D Tab] 1 each PO DAILY [History] Citalopram Hydrobromide [Citalopram HBr] 10 mg PO DAILY 04/04/16 [History] Famotidine [Take Home: Famotidine 20 MG, 3 Tab Pack] 20 mg PO BID 04/04/16 [ History] Aspirin [Ecotrin] 81 mg PO DAILY 08/21/16 [History] Furosemide [Lasix] 40 mg PO DAILY 08/21/16 [History] Metolazone [Zaroxolyn] 2.5 mg PO .Q48H 08/21/16 [History] Metoprolol Tartrate 50 mg PO ACDINNER 08/21/16 [History] Metoprolol Tartrate 100 mg PO DAILY 08/21/16 [History] atorvaSTATin [Lipitor] 40 mg PO BEDTIME 08/21/16 [History] Potassium Chloride [Klor-Con 10] 20 meq PO TIDAC #90 tab.er 08/23/16 [Rx] glipiZIDE [Glucotrol XL] 2.5 mg PO DAILY@0800 #30 tab.er 08/23/16 [Rx] Patient Handouts: Hypokalemia, Potassium Content of Foods Referrals: PCP,Unobtain [Primary Care Provider] - - Discharge Summary/Plan Comment DC Time >30 min.: No - General Info Date of Service: 08/23/16 Admission Dx/Problem (Free Text: Admission Diagnosis/Problem Admission Diagnosis/Problem Weakness Subjective Update: feeling well, her strength has improved Feels strong enough to go home Functional Status: Reports: pain controlled - Review of Systems General: Denies: Fever Pulmonary: Denies: shortness of breath Cardiovascular: Denies: Chest Pain, Edema Gastrointestinal: Denies: Abdominal pain Genitourinary: Denies: dysuria Neurological: Denies: Confusion - Patient Data Vitals - Most Recent: Last Vital Signs Temp 37.0 C 08/23/16 15:53 Pulse 75 08/23/16 17:14 Resp 20 08/23/16 15:53 BP 99/57 L 08/23/16 17:14 Pulse Ox 99 08/23/16 15:53 Weight - Most Recent: 70.307 kg I&O - Last 24 hours: Intake & Output 08/23/16 08/23/16 08/23/16 06:59 14:59 22:59 Intake Total 570 569 205 Output Total 800 300 500 Balance -230 269 -295 Lab Results - Last 24 hrs: Laboratory Results - last 24 hr 08/22/16 08/22/16 08/23/16 Range/Units 20:31 20:33 06:05 WBC 7.0 (5.0-10.0) 10^3/uL RBC 5.72 H (4.2-5.4) 10^6/uL Hgb 14.5 (12.0-16.0) g/dL Hct 43.9 (37.0-47.0) % MCV 76.7 L (80-100) fL MCH 25.3 L (27.0-34.0) pg MCHC 33.0 (33.0-35.0) g/dL Plt Count 137 L (150-450) 10^3/uL Neut % (Auto) 53.8 (42.2-75.2) % Lymph % (Auto) 36.7 (20.5-50.1) % [place] % (Auto) 7.5 (2-8) % Eos % (Auto) 1.6 (1.0-3.0) % Baso % (Auto) 0.4 (0.0-1.0) % Sodium 137 (135-145) mmol/L Potassium 4.3 (3.6-5.0) mmol/L Chloride 93 L (101-111) mmol/L Carbon Dioxide 37.0 H (21.0-31.0) mmol/L Anion Gap 11.3 BUN 66 H (7-18) mg/dL Creatinine 2.1 H (0.6-1.3) mg/dL Est Cr Clr Drug Dosing 15.77 mL/min Estimated GFR (MDRD) 22 Glucose 175 H (74-105) mg/dL POC Glucose 186 H (83-110) mg/dl Calcium 8.6 (8.4-10.2) mg/dl 08/23/16 08/23/16 08/23/16 Range/Units 06:05 07:42 11:33 WBC (5.0-10.0) 10^3/uL RBC (4.2-5.4) 10^6/uL Hgb (12.0-16.0) g/dL Hct (37.0-47.0) % MCV (80-100) fL MCH (27.0-34.0) pg MCHC (33.0-35.0) g/dL Plt Count (150-450) 10^3/uL Neut % (Auto) (42.2-75.2) % Lymph % (Auto) (20.5-50.1) % [place] % (Auto) (2-8) % Eos % (Auto) (1.0-3.0) % Baso % (Auto) (0.0-1.0) % Sodium 137 (135-145) mmol/L Potassium 3.1 L (3.6-5.0) mmol/L Chloride 94 L (101-111) mmol/L Carbon Dioxide 36.0 H (21.0-31.0) mmol/L Anion Gap 10.1 BUN 54 H (7-18) mg/dL Creatinine 1.7 H (0.6-1.3) mg/dL Est Cr Clr Drug Dosing 19.48 mL/min Estimated GFR (MDRD) 29 Glucose 127 H (74-105) mg/dL POC Glucose 130 H 230 H (83-110) mg/dl Calcium 8.4 (8.4-10.2) mg/dl 08/23/16 Range/Units 15:16 WBC (5.0-10.0) 10^3/uL RBC (4.2-5.4) 10^6/uL Hgb (12.0-16.0) g/dL Hct (37.0-47.0) % MCV (80-100) fL MCH (27.0-34.0) pg MCHC (33.0-35.0) g/dL Plt Count (150-450) 10^3/uL Neut % (Auto) (42.2-75.2) % Lymph % (Auto) (20.5-50.1) % [place] % (Auto) (2-8) % Eos % (Auto) (1.0-3.0) % Baso % (Auto) (0.0-1.0) % Sodium 137 (135-145) mmol/L Potassium 4.0 (3.6-5.0) mmol/L Chloride 95 L (101-111) mmol/L Carbon Dioxide 34.0 H (21.0-31.0) mmol/L Anion Gap 12.0 BUN 54 H (7-18) mg/dL Creatinine 1.9 H (0.6-1.3) mg/dL Est Cr Clr Drug Dosing 17.43 mL/min Estimated GFR (MDRD) 25 Glucose 117 H (74-105) mg/dL POC Glucose (83-110) mg/dl Calcium 8.3 L (8.4-10.2) mg/dl Med Orders - Current: Current Medications Acetaminophen (Tylenol) 650 mg PO Q4H PRN PRN Reason: Pain (Mild 1-3)/fever Last Admin: 08/22/16 05:17 Dose: 650 mg Aspirin (Halfprin) 81 mg PO DAILY [facility] Last Admin: 08/23/16 08:17 Dose: 81 mg Atorvastatin Calcium (Lipitor) 40 mg PO BEDTIME [facility] Last Admin: 08/22/16 21:17 Dose: 40 mg Bacitracin/Polymyxin B Sulfate (Polysporin Ophth Oint) 0 gm EYELF TID [facility] Last Admin: 08/23/16 13:47 Dose: 1 applic Citalopram Hydrobromide (Celexa) 10 mg PO DAILY [facility] Last Admin: 08/23/16 08:17 Dose: 10 mg Famotidine (Pepcid) 10 mg PO BID [facility] Last Admin: 08/23/16 08:19 Dose: 10 mg Furosemide (Lasix) 40 mg PO DAILY [facility] Last Admin: 08/23/16 08:18 Dose: 40 mg Glipizide (Glucotrol Xl) 2.5 mg PO DAILY@0800 [facility] Last Admin: 08/23/16 08:15 Dose: 2.5 mg Sodium Chloride (Normal Saline) 1,000 mls @ 30 mls/hr IV ASDIRECTED [facility] Last Admin: 08/23/16 13:41 Dose: 30 mls/hr Insulin Aspart (Novolog) 0 unit SUBCUT QIDACANDBED [facility] PRN Reason: Protocol Last Admin: 08/23/16 17:31 Dose: Not Given Metolazone (Zaroxolyn) 2.5 mg PO Q48H [facility] Last Admin: 08/23/16 07:16 Dose: 2.5 mg Metoprolol Tartrate (Lopressor) 100 mg PO DAILY [facility] Last Admin: 08/23/16 08:18 Dose: 100 mg Metoprolol Tartrate (Lopressor) 50 mg PO ACDINNER [facility] Last Admin: 08/23/16 17:14 Dose: Not Given Multivitamins (Thera) 0.5 each PO DAILY [facility] Last Admin: 08/23/16 08:20 Dose: 0.5 each Ondansetron HCl (Zofran Odt) 4 mg PO Q4H PRN PRN Reason: nausea, able to take PO Potassium Chloride (Klor-Con 10) 20 meq PO TIDAC [facility] Last Admin: 08/23/16 17:00 Dose: 20 meq Sodium Chloride (Saline Flush) 10 ml FLUSH ASDIRECTED PRN PRN Reason: Keep Vein Open Warfarin Sodium (Coumadin) 3 mg PO DAILY@1400 [facility] Last Admin: 08/23/16 13:37 Dose: 3 mg Zolpidem Tartrate (Ambien) 5 mg PO BEDTIME PRN PRN Reason: Sleep Discontinued Medications Famotidine (Pepcid) 20 mg PO BID [facility] Last Admin: 08/22/16 10:24 Dose: Not Given Potassium Chloride 10 meq/ (Premix) 100 mls @ 50 mls/hr IV Q2H [facility] Stop: 08/22/16 06:14 Last Admin: 08/22/16 04:58 Dose: 50 mls/hr Potassium Chloride 10 meq/ (Premix) 100 mls @ 50 mls/hr IV Q2H [facility] Stop: 08/22/16 17:59 Last Infusion: 08/22/16 19:13 Dose: Infused Potassium Chloride 10 meq/ (Premix) 100 mls @ 100 mls/hr IV Q1H [facility] Stop: 08/23/16 13:59 Last Admin: 08/23/16 15:58 Dose: Not Given Metoprolol Succinate (Toprol Xl) 150 mg PO DAILY [facility] Potassium Chloride (Klor-Con 10) 20 meq PO BIDMEALS [facility] - Exam General: Reports: alert, oriented Neck: Reports: supple Lungs: Reports: Clear to auscultation, Normal respiratory effort Cardiovascular: Reports: Irregular Rhythm. Denies: Bradycardia, Tachycardia Abdomen: Reports: bowel sounds present, soft, no tenderness, no distension Back Exam: Reports: normal inspection, full range of motion Extremities: Reports: no edema, normal pulses Skin: Reports: warm, dry, intact Neurological: Reports: no new focal deficit Psy/Mental Status: Reports: alert, normal affect, normal mood *Q Meaningful Use (DIS) - VTE *Q VTE Criteria *Q: - Stroke *Q Stroke Criteria *Q: - AMI *Q AMI Criteria *Q:
== END 2016-08-23 18:45 | disposition home or self-care (01) ==
LOC: DL.ED 17:41 → UNDOADMOB 20:50 → DL.MS 20:50
PROVIDERS: ADMIT Internal Medicine; ATTEND Internal Medicine
DX: E87.6 Hypokalemia (principal); R53.1 Weakness; I50.9 Heart failure, unspecified; R06.01 Orthopnea; Z86.718 Personal history of other venous thrombosis and embolism; I48.91 Unspecified atrial fibrillation; I25.10 Atherosclerotic heart disease of native coronary artery without angina pectoris; I12.9 Hypertensive chronic kidney disease with stage 1 through stage 4 chronic kidney disease, or unspecified chronic kidney disease; N18.3 Chronic kidney disease, stage 3 (moderate); E11.65 Type 2 diabetes mellitus with hyperglycemia; E78.00 Pure hypercholesterolemia, unspecified; I25.2 Old myocardial infarction; Z95.5 Presence of coronary angioplasty implant and graft; K21.9 Gastro-esophageal reflux disease without esophagitis; M19.90 Unspecified osteoarthritis, unspecified site; Z96.649 Presence of unspecified artificial hip joint; Z79.82 Long term (current) use of aspirin; Z79.899 Other long term (current) drug therapy; Z88.8 Allergy status to other drugs, medicaments and biological substances; Z66 Do not resuscitate
CPT/HCPCS: 36415; 70450; 80048; 80053; 82962; 83880; 84484; 85025; 85610; 96361; 96365; 96366; 99219; 99225; 99284; 99285; A9270; G0378; J1815; J3480; J7030; 99217

== ENCOUNTER 2017-07-17 16:08 | Emergency (ER) | payer MEDICARE, OTHER ==
[2017-07-17] MEDS ORDERED: Diphtheria,Pertussis(Acell),Tetanus Vaccine 0.5 ML SDV IM ONE (16:21)
[2017-07-17] MEDS ORDERED: Lidocaine 1% 30 ML SDV INJECT ONE (16:22)
[2017-07-17] MEDS ORDERED: Bacitracin Oint 1 GM U/D Packet TOP ONE (16:22)
[2017-07-17] MEDS ORDERED: Cephalexin 500 MG Cap PO ONE (18:39)
[2017-07-17] MEDS ORDERED: Acetaminophen/HYDROcodone 325-10 MG Tab PO ONE (18:40)
--- NOTE | 2017-07-17 18:42 | EDM.PDOC ---
"Scribed by Ale Aguilar 07/17/17 1720 for Fredrick Mcmahon MD ED HPI GENERAL MEDICAL PROBLEM - General Chief Complaint: Trauma Stated Complaint: FACE BLEADING Time Seen by Provider: 07/17/17 16:20 Source of Information: Reports: Patient, RN, RN Notes Reviewed History Limitations: Reports: No Limitations - History of Present Illness INITIAL COMMENTS - FREE TEXT/NARRATIVE: Patient arrives to ER by POV with complaint of laceration and injury to face/ nose/lip and hand sustained from a fall when patient missed the step or sidewalk at [employer]. Denies loss of consciousness,nausea or vomiting. *Anticoagulated Pt >55yrs, fall with head injury: TRAUMA PRIMARY TRAUMA SURVEY: Arrives to ER by POV with Pt awake, alert, oriented to person, place, and date. AIRWAY: Patent nasal and oral airways. Conversant with clear speech. BREATHING: Spontaneous respirations, with lungs clear to auscultation B/L. CIRCULATION: Good color, no cyanosis. Intact peripheral pulses at all 4 distal extremities, normal capillary refill time at all four extremities distal digits. Heart RRR, no murmur, no rub. DISABILITY/DEFORMITIES : No active bleeding. Bruising to nose. Laceration to Rt hand, and inner lower lip. Superficial abrasion to nose, left index finger, and lower lip. No upper or lower extremity pain, obvious deformity, swelling, bruising, discoloration, or other signs of injury. Eugenia pelvis intact, stable and non-tender. Abdomen benign to exam. Chest non-tender anteriorly, no flail chest, crepitus, or subcutaneous emphysema. Neuro. grossly intact with pt. A&O x3, appropriate conversation, no confusion, CN II-XII intact. No acute motor or sensory deficits, GCS 15 on arrival to ER. Skin clean, dry, and warm. EXPOSURE: No visible injury to back, no vertebral eugenia tenderness. No C-collar applied. Onset: Today Location: Reports: Face (nose and lip) Quality: Reports: Ache Severity: Moderate Improves with: Reports: None Worsens with: Reports: None Associated Symptoms: Reports: No Other Symptoms - Related Data Allergies Allergy/AdvReac Type Severity Reaction Status Date / Time BULMARO Inhibitors Allergy Other Verified 08/21/16 19:05 lisinopril Allergy Cough Verified 08/21/16 19:05 losartan potassium Allergy Cannot Verified 08/21/16 19:05 [From [facility]] Remember Home Meds: Home Meds Acetaminophen [Pain & Fever] 500 mg PO ASDIRECTED PRN 09/28/13 [History] Loratadine [Claritin RediTabs] 10 mg PO DAILY PRN 09/28/13 [History] Multivitamin [Multi-Vitamin Daily] 0.5 each PO DAILY 09/28/13 [History] Warfarin [Coumadin] 2 mg PO DAILY 09/28/13 [History] Ca Carb & Gluc/Mag Ox & Gluc [Calcium Magnesium Caplet] 1 tab PO DAILY 02/20/15 [History] Calcium Carbonate/Vitamin D3 [Oyster Shell Calcium-Vit D Tab] 1 each PO DAILY [History] Citalopram Hydrobromide [Citalopram HBr] 10 mg PO DAILY 04/04/16 [History] Famotidine [Take Home: Famotidine 20 MG, 3 Tab Pack] 20 mg PO BID 04/04/16 [ History] Aspirin [Ecotrin] 81 mg PO DAILY 08/21/16 [History] Furosemide [Lasix] 40 mg PO DAILY 08/21/16 [History] Metolazone [Zaroxolyn] 2.5 mg PO .Q48H 08/21/16 [History] Metoprolol Tartrate 50 mg PO ACDINNER 08/21/16 [History] Metoprolol Tartrate 100 mg PO DAILY 08/21/16 [History] atorvaSTATin [Lipitor] 40 mg PO BEDTIME 08/21/16 [History] Potassium Chloride [Klor-Con 10] 20 meq PO TIDAC #90 tab.er 08/23/16 [Rx] glipiZIDE [Glucotrol XL] 2.5 mg PO DAILY@0800 #30 tab.er 08/23/16 [Rx] Past Medical History HEENT History: Reports: Impaired Vision Cardiovascular History: Reports: Blood Clots/VTE/DVT, High Cholesterol, Hypertension, ND, Stents Other Cardiovascular History: valvular heart disease Respiratory History: Reports: None Gastrointestinal History: Reports: GERD Genitourinary History: Reports: Chronic Renal Insuffiency, Other (See Below) Other Genitourinary History: renal insufficiency 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 Dermatologic History: Reports: Other (See Below) Other Dermatologic History: Vein surg. 50 years ago - Infectious Disease History Infectious Disease History: Reports: Chicken Pox, Measles, Mumps, Pertussis ( Whooping Cough) - Past Surgical History HEENT Surgical History: Reports: Cataract Surgery Cardiovascular Surgical History: Reports: Coronary Artery Stent Musculoskeletal Surgical History: Reports: Hip Replacement Social & Family History - Family History Family Medical History: Noncontributory - Tobacco Use Smoking Status *Q: Never Smoker Second Hand Smoke Exposure: No - Caffeine Use Caffeine Use: Reports: Coffee - Recreational Drug Use Recreational Drug Use: No - Living Situation & Occupation Occupation: Retired Review of Systems - Review of Systems Review Of Systems: ROS reveals no pertinent complaints other than HPI. ED EXAM, GENERAL - Physical Exam Exam: See Below Free Text/Narrative:: SECONDARY TRAUMA SURVEY (17:20HRS): Exam Limited By: No Limitations General Appearance: Alert, WD/WN, No Apparent Distress Eye Exam: Bilateral Eye: EOMI, Normal Inspection, PERRL Ears: Normal External Exam, Normal Canal, Hearing Grossly Normal, Normal TMs, Other (no hemotympanum) Nose: Normal Mucosa, Nasal Swelling (with bruising, mild tenderness, superficial abrasion, small amt. of dried blood in B/L nares). No: Nasal Drainage, Clear Rhinorrhea Throat/Mouth: Normal Teeth, Normal Gums, Normal Oropharynx, Normal Voice, No Airway Compromise, Other (superficial abrasion to outer lower lip that does not cross the akilah border. Inner lower lip with 0.6cm irregular puncture/lac. consistent w/injury from a tooth, no active bleeding, no FB, not through & through, no dental injury.) Head: Normocephalic, Other (Nose/mouth injuries as above.) Neck: Normal Inspection, Supple, Non-Tender, Full Range of Motion. No: Limited Range of Motion, Tender Lateral, Tender Midline Respiratory/Chest: No Respiratory Distress, Lungs Clear, Normal Breath Sounds, No Accessory Muscle Use, Chest Non-Tender Cardiovascular: Regular Rate, Rhythm, No Edema GI/Abdominal: Normal Bowel Sounds, Soft, Non-Tender, No Distention, Pelvis Stable. No: Guarding, Rigid, Rebound (Female) Exam: Deferred Rectal (Female) Exam: Deferred Back Exam: Normal Inspection, Full Range of Motion. No: CVA Tenderness (L), CVA Tenderness (R), Paraspinal Tenderness, Vertebral Tenderness Extremities: Normal Range of Motion, No Pedal Edema, Normal Capillary Refill, Other (Very superficial abrasion to left index finger. Rt hand lac. at lateral hand 2cm to depth of subcutaneous tissue, no active bleeding, no FB.). No: Joint Swelling, Limited Range of Motion, Mottled, Pallor, Redness Neurological: Alert, Oriented, CN II-XII Intact, Normal Cognition, Normal Gait, No Motor/Sensory Deficits Psychiatric: Normal Affect, Normal Mood Skin Exam: Warm, Dry, Normal Color, No Rash ED TRAUMA PROCEDURES - Laceration/Wound Repair Right Lateral Hand Lac/Wound Length In cm: 2.5 (lateral hand) Appearance: Subcutaneous, Irregular, Clean Distal NVT: Neuro & Vascular Intact, No Tendon Injury Anesthetic Type: Local Local Anesthesia - Lidocaine (Xylocaine): 1% Plain Local Anesthetic Volume: Other (10cc) Skin Prep: Chlorhexidine (Hibiciens), Saline Saline Irrigation (cc's): 1,000 Exploration/Debridement/Repair: Wound Explored, In a Bloodless Field, Explored to Base, Minimal Debridement, Minimally Undermined Closed With: Sutures Suture Size: 4-0 # of Sutures: 6 Suture Type: Nylon, Interrupted Sterile Dressing Applied: Nurse Tetanus Status Addressed: Yes Complications: No Course - Vital Signs Last Recorded V/S: See paper trauma chart for RN documented VS. - Orders/Labs/Meds Orders: Active Orders 24 hr Category Date Time Status Vaccines to be Administered [RC] PER UNIT ROUTINE Care 07/17/17 16:21 Active Labs: Laboratory Tests 07/17/17 Range/Units 16:34 PT 15.9 H D (9.0-12.0) SEC INR 1.6 H (0.9-1.2) Meds: Medications Discontinued Medications Generic Name Dose Route Start Last Admin Trade Name Freq PRN Reason Stop Dose Admin Bacitracin 1 dose 07/17/17 16:22 07/17/17 17:01 Bacitracin Oint 1 Gm TOP 07/17/17 16:23 1 dose ONETIME ONE Administration Diphtheria/Tetanus/Acell Pertussis 0.5 ml 07/17/17 16:21 07/17/17 16:58 Adacel IM 07/17/17 16:22 0.5 ml .ONCE ONE Administration Lidocaine HCl 30 ml 07/17/17 16:22 07/17/17 17:01 Xylocaine-Mpf 1% INJECT 07/17/17 16:23 30 ml ONETIME ONE Administration - Radiology Interpretation Free Text/Narrative:: CT HEAD/FACIAL: 07/17/2017 4:50 PM PROVIDED CLINICAL HISTORY: Signs and symptoms; Other: Fall/Fell face forward/ pain TECHNIQUE: Noncontrast axial head and facial CT scans. Coronal and sagittal reformatted images of the facial study are submitted. This CT exam was performed using one or more of the following dose reduction techniques: automated exposure control, adjustment of the mA and/ or kV according to patient size, and/or use of iterative reconstruction technique. COMPARISON: Head CT scan dated 08/21/2016 FINDINGS: Again seen are patchy mild bilateral periventricular white matter hypodensities , consistent with chronic senescent small vessel ischemic disease. No other abnormal foci of altered attenuation within the remaining cerebral or cerebellar parenchyma. No intracranial mass lesion or evidence for acute territorial infarct. Again seen is mild symmetric enlargement of the ventricles and sulci bilaterally , consistent with agerelated brain atrophy. No midline shift or hydrocephalus. No abnormal extraaxial fluid or air collection; no intracranial hemorrhage. The osseous structures are intact, without fracture. There is poor dentition, including right maxillary and bilateral mandibular periodontal disease and some dental caries. Again seen is mild bilateral posterior mastoid fluid and sclerosis, consistent with mild chronic mastoiditis, but remaining mastoid air cells are clear. There is minimal bilateral inferior maxillary sinus mucosal thickening, but the remaining paranasal sinuses are essentially clear. Again seen is evidence for prior bilateral ocular lens replacement surgery, but the orbits are otherwise unremarkable. The infratemporal fossae, skull, and scalp are unremarkable. GIO TAYLOR | Final Radiology Report CONFIDENTIALITY STATEMENT This report is intended only for use by the referring physician, and only in accordance with law. If you received this in error, call [phone]. Page 2 of 2 IMPRESSION: --No acute bony trauma or acute intracranial abnormality. --Chronic findings are described above. Thank you for allowing us to participate in the care of your patient. Dictated and Authenticated by: Melquiades Danielle MD 07/17/2017 5:44 PM Central Time ([place] & [place]) EXAM: CT Cervical Spine Without Intravenous Contrast EXAM DATE/TIME: 07/17/2017 4:50 PM CLINICAL HISTORY: 87 years old, female; Fall/pain TECHNIQUE: Axial computed tomography images of the cervical spine without intravenous contrast. Coronal and sagittal reformatted images are submitted. All CT scans at this facility use one or more dose reduction techniques, viz.: automated exposure control; ma/kV adjustment per patient size (including targeted exams where dose is matched to indication; i.e. head); or iterative reconstruction technique. COMPARISON: Tech Note: No prior exams for this patient. 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 There are mild to moderate cervical spine degenerative changes, with associated multilevel chronic spinal stenosis. There is mild grade 1 retrolisthesis of C4 on C5 measuring 2 mm, likely related to chronic facet hypertrophy at this level. Otherwise anatomic bony alignment, and the vertebral body heights are maintained. No acute fracture or dislocation. There are atherosclerotic calcifications including carotid artery calcifications. There is a 2.5 cm hypodense left thyroid mass, and there are smaller right thyroid nodular hypodensities. The visualized paraspinal structures are otherwise unremarkable. IMPRESSION: --2.5 cm hypodense left thyroid mass and smaller right thyroid nodular hypodensities; recommend baseline thyroid ultrasound correlation nonemergently, if clinically indicated and not previously performed. CLAUDIA GIO | Final Radiology Report CONFIDENTIALITY STATEMENT This report is intended only for use by the referring physician, and only in accordance with law. If you received this in error, call [phone]. Page 2 of 2 --No acute fracture or dislocation; additional chronic abnormalities are described above. Thank you for allowing us to participate in the care of your patient. Dictated and Authenticated by: Melquiades Danielle MD CT Results Date: 07/17/17 Departure - Departure Time of Disposition: 18:31 Disposition: Home, Self-Care 01 Condition: Good Clinical Impression: Abrasion, multiple sites, Thyroid mass of unclear etiology Facial contusion Qualifiers: Encounter type: initial encounter Qualified Code(s): S00.83XA - Contusion of other part of head, initial encounter Contusion, nose Qualifiers: Encounter type: initial encounter Qualified Code(s): S00.33XA - Contusion of nose, initial encounter Laceration of lower lip Qualifiers: Encounter type: initial encounter Qualified Code(s): S01.511A - Laceration without foreign body of lip, initial encounter Tooth fracture Qualifiers: Encounter type: initial encounter Fracture type: closed Qualified Code(s): S02.5XXA - Fracture of tooth (traumatic), initial encounter for closed fracture Laceration of right hand Qualifiers: Encounter type: initial encounter Foreign body presence: without foreign body Qualified Code(s): S61.411A - Laceration without foreign body of right hand, initial encounter Accidental fall involving sidewalk curb Qualifiers: Encounter type: initial encounter Qualified Code(s): W10.1XXA - Fall (on)(from ) sidewalk curb, initial encounter - Discharge Information Instructions: Mouth Laceration, Tooth Injuries, Contusion, Laceration Care, Adult, [id number] Forms: ED Department Discharge Additional Instructions: Rx: Cephalexin 500mg Rx: Hydrocodone APAP 5mg/325mg *No driving while under the influence of this medication. Follow up in clinic with your primary doctor in 7 to 10 days for suture removal from your right hand. Follow up with your doctor for further thyroid evaluation if needed. - My Orders Last 24 Hours: My Active Orders 07/17/17 16:21 Vaccines to be Administered [RC] PER UNIT ROUTINE - Assessment/Plan Last 24 Hours: My Active Orders 07/17/17 16:21 Vaccines to be Administered [RC] PER UNIT ROUTINE I have read and agree with the documentation that has been completed regarding this visit. By signing this record, I attest that the documentation was completed in my physical presence and is an accurate record of the encounter."
[2017-07-17] MEDS ORDERED: Clindamycin HCl 150 MG Cap PO ONE (18:47)
== END 2017-07-17 19:10 | disposition home or self-care (01) ==
LOC: DL.ED 16:08
DX: S61.411A Laceration without foreign body of right hand, initial encounter (principal); S01.511A Laceration without foreign body of lip, initial encounter; S02.5XXA Fracture of tooth (traumatic), initial encounter for closed fracture; I12.9 Hypertensive chronic kidney disease with stage 1 through stage 4 chronic kidney disease, or unspecified chronic kidney disease; R22.1 Localized swelling, mass and lump, neck; E78.00 Pure hypercholesterolemia, unspecified; I25.2 Old myocardial infarction; N18.9 Chronic kidney disease, unspecified; Z88.8 Allergy status to other drugs, medicaments and biological substances; Z79.899 Other long term (current) drug therapy; Z79.82 Long term (current) use of aspirin; Z79.01 Long term (current) use of anticoagulants; W10.1XXA Fall (on)(from) sidewalk curb, initial encounter
CPT/HCPCS: 12001; 36415; 70450; 70486; 72125; 85610; 90471; 90715; 99284; A9270

== ENCOUNTER 2017-08-10 18:45 | Emergency (ER) | payer MEDICARE, OTHER ==
[2017-08-10 19:26] VITALS: BP 133/78
[2017-08-10 19:59] LABS: ANION GAP 11.4
--- NOTE | 2017-08-10 20:11 | EDM.PDOC ---
ED HPI GENERAL MEDICAL PROBLEM - General Chief Complaint: General Stated Complaint: [id number] REALLY BAD COLD Time Seen by Provider: 08/10/17 19:15 Source of Information: Reports: Patient History Limitations: Reports: No Limitations - History of Present Illness INITIAL COMMENTS - FREE TEXT/NARRATIVE: This 87 yo female patient reports to the ED due to increased cough, shortness of breath and sub-sternal chest pain with cough. The patient has been traveling prior to today. The patient has tried some OTC medications with no symptom improvement. The patient had noticed increased swelling in her lower extremities after traveling. The patient has had an increase in diuretics with a 10 pound weight loss over the past week. Duration: Day(s):, Constant, Getting Worse Location: Reports: Generalized Severity: Moderate Improves with: Reports: None Worsens with: Reports: None Associated Symptoms: Reports: cough w sputum Treatments CLINIC CMA: Reports: Other Medication(s) Chest Pain Score (Numeric/FACES): 8 - Related Data Allergies Allergy/AdvReac Type Severity Reaction Status Date / Time BULMARO Inhibitors Allergy Other Verified 08/10/17 19:07 lisinopril Allergy Cough Verified 08/10/17 19:07 losartan potassium Allergy Cannot Verified 08/10/17 19:07 [From [facility]] Remember Home Meds: Home Meds Acetaminophen [Pain & Fever] 500 mg PO ASDIRECTED PRN 09/28/13 [History] Loratadine [Claritin RediTabs] 10 mg PO DAILY PRN 09/28/13 [History] Multivitamin [Multi-Vitamin Daily] 0.5 each PO DAILY 09/28/13 [History] Warfarin [Coumadin] 2 mg PO DAILY 09/28/13 [History] Ca Carb & Gluc/Mag Ox & Gluc [Calcium Magnesium Caplet] 1 tab PO DAILY 02/20/15 [History] Calcium Carbonate/Vitamin D3 [Oyster Shell Calcium-Vit D Tab] 1 each PO DAILY [History] Citalopram Hydrobromide [Citalopram HBr] 10 mg PO DAILY 04/04/16 [History] Famotidine [Take Home: Famotidine 20 MG, 3 Tab Pack] 20 mg PO BID 04/04/16 [ History] Aspirin [Ecotrin] 81 mg PO DAILY 08/21/16 [History] Furosemide [Lasix] 40 mg PO DAILY 08/21/16 [History] Metolazone [Zaroxolyn] 2.5 mg PO .Q48H 08/21/16 [History] Metoprolol Tartrate 50 mg PO ACDINNER 08/21/16 [History] Metoprolol Tartrate 100 mg PO DAILY 08/21/16 [History] atorvaSTATin [Lipitor] 40 mg PO BEDTIME 08/21/16 [History] Potassium Chloride [Klor-Con 10] 20 meq PO TIDAC #90 tab.er 08/23/16 [Rx] glipiZIDE [Glucotrol XL] 2.5 mg PO DAILY@0800 #30 tab.er 08/23/16 [Rx] Past Medical History HEENT History: Reports: Impaired Vision Cardiovascular History: Reports: Blood Clots/VTE/DVT, High Cholesterol, Hypertension, [place], Stents Other Cardiovascular History: valvular heart disease Respiratory History: Reports: None Gastrointestinal History: Reports: GERD Genitourinary History: Reports: Chronic Renal Insuffiency, Other (See Below) Other Genitourinary History: renal insufficiency 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 Dermatologic History: Reports: Other (See Below) Other Dermatologic History: Vein surg. 50 years ago - Infectious Disease History Infectious Disease History: Reports: Chicken Pox, Measles, Mumps, Pertussis ( Whooping Cough) - Past Surgical History HEENT Surgical History: Reports: Cataract Surgery Cardiovascular Surgical History: Reports: Coronary Artery Stent Musculoskeletal Surgical History: Reports: Hip Replacement Social & Family History - Family History Family Medical History: Noncontributory - Tobacco Use Smoking Status *Q: Never Smoker Second Hand Smoke Exposure: No - Caffeine Use Caffeine Use: Reports: Coffee - Recreational Drug Use Recreational Drug Use: No - Living Situation & Occupation Occupation: Retired ED ROS GENERAL - Review of Systems Review Of Systems: ROS reveals no pertinent complaints other than HPI. ED EXAM, GENERAL - Physical Exam Exam: See Below Exam Limited By: No Limitations General Appearance: Alert, WD/WN, Moderate Distress Eye Exam: Bilateral Eye: EOMI, Normal Inspection, PERRL Ears: Normal External Exam, Normal Canal, Hearing Grossly Normal, Normal TMs Nose: Normal Inspection, Normal Mucosa, No Blood Throat/Mouth: Normal Inspection, Normal Lips, Normal Teeth, Normal Gums, Normal Oropharynx, Normal Voice, No Airway Compromise Head: Atraumatic, Normocephalic Neck: Normal Inspection, Supple, Non-Tender, Full Range of Motion Respiratory/Chest: No Respiratory Distress, Lungs Clear, Normal Breath Sounds, No Accessory Muscle Use, Chest Non-Tender Cardiovascular: Normal Peripheral Pulses, Regular Rate, Rhythm, No Edema, No Gallop, No JVD, No Murmur, No Rub GI/Abdominal: Normal Bowel Sounds, Soft, Non-Tender, No Organomegaly, No Distention, No Abnormal Bruit, No Mass (Female) Exam: Deferred Rectal (Female) Exam: Deferred Back Exam: Normal Inspection, Full Range of Motion, NT Extremities: Normal Inspection, Normal Range of Motion, Non-Tender, Normal Capillary Refill, Pedal Edema Neurological: Alert, Oriented, CN II-XII Intact, Normal Cognition, Normal Gait, Normal Reflexes, No Motor/Sensory Deficits Psychiatric: Normal Affect, Normal Mood Skin Exam: Warm, Dry, Intact, Normal Color, No Rash Lymphatic: No Adenopathy Course - Vital Signs Last Recorded V/S: Last Vital Signs Temp Pulse 86 08/10/17 19:07 Resp 18 08/10/17 19:07 BP 123/71 08/10/17 19:07 Pulse Ox 93 L 08/10/17 19:07 Departure - Departure Time of Disposition: 20:12 Disposition: Home, Self-Care 01 Condition: Fair Clinical Impression: Acute bronchitis Qualifiers: Bronchitis organism: unspecified organism Qualified Code(s): J20.9 - Acute bronchitis, unspecified - Discharge Information Instructions: Acute Bronchitis, Adult, [id number] Care Plan Goals: The patient was advised of the examination and lab results during the visit. The patient was given an oral dose of Doxycycline and Robitussin AC while in the ED. The patient was discharged with scripts for Doxycycline (100 mg) to take 1 by mouth 2 times per day for 10 days and Robitussin AC #100 mL to take 5 mL by mouth nightly as needed for cough. The patient should follow-up with her primary care facility within the next week. If the patient has any additional symptoms or concerns,the patient should either return to the emergency department or to see her primary care facility.
[2017-08-10] MEDS ORDERED: Doxycycline 100 MG Cap PO ONE (20:13)
[2017-08-10] MEDS ORDERED: Codeine/guaiFENesin 100-10 MG/5 ML Syrup 5 ML Cup PO ONE (20:14)
== END 2017-08-10 20:27 | disposition home or self-care (01) ==
LOC: DL.ED 18:45
DX: J20.9 Acute bronchitis, unspecified (principal); E78.00 Pure hypercholesterolemia, unspecified; I25.2 Old myocardial infarction; I12.9 Hypertensive chronic kidney disease with stage 1 through stage 4 chronic kidney disease, or unspecified chronic kidney disease; N18.9 Chronic kidney disease, unspecified; K21.9 Gastro-esophageal reflux disease without esophagitis; Z88.8 Allergy status to other drugs, medicaments and biological substances; Z79.899 Other long term (current) drug therapy; Z79.82 Long term (current) use of aspirin; Z79.01 Long term (current) use of anticoagulants
CPT/HCPCS: 36415; 71046; 80053; 85025; 99284; A9270; 99283

== ENCOUNTER 2018-01-08 16:58 | Emergency (ER) | payer MEDICARE, OTHER ==
[2018-01-08] MEDS ORDERED: Sulfamethoxazole/Trimethoprim 800-160 MG Tab PO ONE (16:59)
[2018-01-08] MEDS ORDERED: Acetaminophen/HYDROcodone 325-10 MG Tab PO ONE (16:59)
[2018-01-08] MEDS ORDERED: Mupirocin Oint 22 GM Tube TOP ONE (18:23)
[2018-01-08] MEDS ORDERED: Acetaminophen/HYDROcodone 325-5 MG Tab PO ONE (18:25)
--- NOTE | 2018-01-08 18:46 | EDM.PDOC ---
Scribed by Ale Aguilar 01/08/18 [id number] for Fredrick Mcmahon MD <Fredrick Mcmahon - Last Filed: 01/08/18 18:30> ED HPI GENERAL MEDICAL PROBLEM - General Chief Complaint: Wound Recheck Stated Complaint: LEG PAIN [id number] Time Seen by Provider: 01/08/18 18:07 Source of Information: Reports: Patient, Family, RN, RN Notes Reviewed History Limitations: Reports: No Limitations - History of Present Illness INITIAL COMMENTS - FREE TEXT/NARRATIVE: Pt presents to ER with c/o "cellulitis" to B/L lower legs. Pt was seen here for the same on 12/15/17 and cultures were positive for MRSA. Pt denies fever or chills. She has not followed up in clinic for recheck. Pt states the legs are very painful, making it difficult to sleep. Onset: Gradual Duration: Constant, Getting Worse Location: Reports: Lower Extremity, Left, Lower Extremity, Right Quality: Reports: Ache, Same as Previous Episode Severity: Severe Improves with: Reports: None Worsens with: Reports: None Associated Symptoms: Reports: No Other Symptoms Bilateral Lower Leg Pain Score (Numeric/FACES): 5 - Related Data Allergies Allergy/AdvReac Type Severity Reaction Status Date / Time BULMARO Inhibitors Allergy Other Verified 01/08/18 17:21 lisinopril Allergy Cough Verified 01/08/18 17:21 losartan potassium Allergy Cannot Verified 01/08/18 17:21 [From Darrel] Remember Home Meds: Home Meds Acetaminophen [Pain & Fever] 500 mg PO ASDIRECTED PRN 09/28/13 [History] Loratadine [Claritin RediTabs] 5 mg PO DAILY PRN 09/28/13 [History] Multivitamin [Multi-Vitamin Daily] 0.5 each PO DAILY 09/28/13 [History] Warfarin [Coumadin] 2 mg PO DAILY 09/28/13 [History] Ca Carb & Gluc/Mag Ox & Gluc [Calcium Magnesium Caplet] 1 tab PO DAILY 02/20/15 [History] Calcium Carbonate/Vitamin D3 [Oyster Shell Calcium-Vit D Tab] 1 each PO DAILY [History] Citalopram Hydrobromide [Citalopram HBr] 10 mg PO DAILY 04/04/16 [History] Famotidine [Take Home: Famotidine 20 MG, 3 Tab Pack] 20 mg PO BID 04/04/16 [ History] Aspirin [Ecotrin] 81 mg PO DAILY 08/21/16 [History] Furosemide [Lasix] 40 mg PO DAILY 08/21/16 [History] Metolazone [Zaroxolyn] 2.5 mg PO .Q48H 08/21/16 [History] Metoprolol Tartrate 50 mg PO ACDINNER 08/21/16 [History] Metoprolol Tartrate 100 mg PO DAILY 08/21/16 [History] atorvaSTATin [Lipitor] 40 mg PO BEDTIME 08/21/16 [History] Potassium Chloride [Klor-Con 10] 20 meq PO TIDAC #90 tab.er 08/23/16 [Rx] glipiZIDE [Glucotrol XL] 2.5 mg PO DAILY@0800 #30 tab.er 08/23/16 [Rx] Past Medical History HEENT History: Reports: Impaired Vision Cardiovascular History: Reports: Blood Clots/VTE/DVT, High Cholesterol, Hypertension, VA, PVD, Stents Other Cardiovascular History: valvular heart disease Respiratory History: Reports: None Gastrointestinal History: Reports: GERD Genitourinary History: Reports: Chronic Renal Insuffiency, Other (See Below) Other Genitourinary History: renal insufficiency 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 Dermatologic History: Reports: Other (See Below) Other Dermatologic History: Vein surg. 50 years ago - Infectious Disease History Infectious Disease History: Reports: Chicken Pox, Measles, MRSA, Mumps, Pertussis (Whooping Cough) - Past Surgical History HEENT Surgical History: Reports: Cataract Surgery Cardiovascular Surgical History: Reports: Coronary Artery Stent Musculoskeletal Surgical History: Reports: Hip Replacement Social & Family History - Family History Family Medical History: Noncontributory - Tobacco Use Smoking Status *Q: Never Smoker Second Hand Smoke Exposure: No - Caffeine Use Caffeine Use: Reports: Soda - Recreational Drug Use Recreational Drug Use: No - Living Situation & Occupation Occupation: Retired [facility] [employer] [facility] GENER[facility] - Review of Systems Review Of Systems: ROS reveals no pertinent complaints other than HPI. ED EXAM, GENERAL - Physical Exam Exam: See Below Exam Limited By: No Limitations General Appearance: Alert, WD/WN, No Apparent Distress Nose: Normal Inspection Throat/Mouth: Normal Inspection, Normal Lips, Normal Voice, No Airway Compromise Head: Atraumatic, Normocephalic Neck: Normal Inspection, Full Range of Motion Respiratory/Chest: No Respiratory Distress, Lungs Clear, Normal Breath Sounds, No Accessory Muscle Use, Chest Non-Tender Cardiovascular: Regular Rate, Rhythm Extremities: Normal Range of Motion, Pedal Edema (trace edema to B/L lower extremities), Slow Capillary Refill (B/L feet), Leg Pain, Redness (chronic appearing venous stasis to B/L lower extremities w/several 1.5cm to 2.5cm oval ulcerated excoriated lesions). No: Joint Swelling, Nicole's Sign Neurological: Alert, Oriented, Normal Cognition, No Motor/Sensory Deficits Psychiatric: Normal Mood Course - Vital Signs Last Recorded V/S: Last Vital Signs Temp 36.4 C 01/08/18 19:29 Pulse 82 01/08/18 19:29 Resp 14 01/08/18 19:29 BP 114/61 01/08/18 19:29 Pulse Ox 95 01/08/18 19:29 - Orders/Labs/Meds Labs: Laboratory Tests 01/08/18 01/08/18 01/08/18 Range/Units 18:30 18:30 18:30 WBC 5.5 (5.0-10.0) 10^3/uL RBC 4.94 (4.2-5.4) 10^6/uL Hgb 13.6 (12.0-16.0) g/dL Hct 41.7 (37.0-47.0) % MCV 84.4 (80-100) fL MCH 27.5 (27.0-34.0) pg MCHC 32.6 L (33.0-35.0) g/dL Plt Count 134 L (150-450) 10^3/uL Neut % (Auto) 58.0 (42.2-75.2) % Lymph % (Auto) 32.7 (20.5-50.1) % Sherman % (Auto) 8.6 H (2-8) % Eos % (Auto) 0.5 L (1.0-3.0) % Baso % (Auto) 0.2 (0.0-1.0) % PT (9.0-12.0) SEC INR (0.9-1.2) Sodium 138 (135-145) mmol/L Potassium 3.4 L (3.6-5.0) mmol/L Chloride 96 L (101-111) mmol/L Carbon Dioxide 35.0 H (21.0-31.0) mmol/L Anion Gap 10.4 BUN 49 H (7-18) mg/dL Creatinine 2.0 H (0.6-1.3) mg/dL Est Cr Clr Drug Dosing 17.01 mL/min Estimated GFR (MDRD) 24 BUN/Creatinine Ratio 24.50 Glucose 135 H (74-105) mg/dL Lactic Acid 0.8 (0.5-2.2) mmol/L Calcium 8.6 (8.4-10.2) mg/dl Total Bilirubin 1.0 (0.2-1.0) mg/dL AST 34 (10-42) IU/L ALT 29 (10-60) IU/L Alkaline Phosphatase 90 (42-121) IU/L C-Reactive Protein (0.0-1.3) mg/dL Total Protein 7.3 (6.7-8.2) g/dl Albumin 3.5 (3.2-5.5) g/dl Globulin 3.8 Albumin/Globulin Ratio 0.92 01/08/18 01/08/18 Range/Units 18:30 18:30 WBC (5.0-10.0) 10^3/uL RBC (4.2-5.4) 10^6/uL Hgb (12.0-16.0) g/dL Hct (37.0-47.0) % MCV (80-100) fL MCH (27.0-34.0) pg MCHC (33.0-35.0) g/dL Plt Count (150-450) 10^3/uL Neut % (Auto) (42.2-75.2) % Lymph % (Auto) (20.5-50.1) % Sherman % (Auto) (2-8) % Eos % (Auto) (1.0-3.0) % Baso % (Auto) (0.0-1.0) % PT 23.5 H (9.0-12.0) SEC INR 2.4 H (0.9-1.2) Sodium (135-145) mmol/L Potassium (3.6-5.0) mmol/L Chloride (101-111) mmol/L Carbon Dioxide (21.0-31.0) mmol/L Anion Gap BUN (7-18) mg/dL Creatinine (0.6-1.3) mg/dL Est Cr Clr Drug Dosing mL/min Estimated GFR (MDRD) BUN/Creatinine Ratio Glucose (74-105) mg/dL Lactic Acid (0.5-2.2) mmol/L Calcium (8.4-10.2) mg/dl Total Bilirubin (0.2-1.0) mg/dL AST (10-42) IU/L ALT (10-60) IU/L Alkaline Phosphatase (42-121) IU/L C-Reactive Protein 0.5 (0.0-1.3) mg/dL Total Protein (6.7-8.2) g/dl Albumin (3.2-5.5) g/dl Globulin Albumin/Globulin Ratio Meds: Medications Discontinued Medications Generic Name Dose Route Start Last Admin Trade Name Freq PRN Reason Stop Dose Admin Hydrocodone Bitart/Acetaminophen 1 tab 01/08/18 18:25 01/08/18 18:35 [place] 325-5 Mg PO 01/08/18 18:26 1 tab ONETIME ONE Administration Mupirocin 15 gm 01/08/18 18:23 01/08/18 18:36 Bactroban Oint TOP 01/08/18 18:24 15 gm ONETIME ONE Administration - Re-Assessments/Exams Free Text/Narrative Re-Assessment/Exam: 01/08/18 18:44 Care of pt transferred to Juan Pablo ARNOLD at 1900HR shift change. Departure - Departure Disposition: Home, Self-Care 01 Clinical Impression: Venous stasis dermatitis Qualifiers: Laterality: bilateral Qualified Code(s): I87.2 - Venous insufficiency (chronic ) (peripheral) - Discharge Information Instructions: Stasis Dermatitis Forms: ED Department Discharge Care Plan Goals: The patient was advised of the examination and lab results during the visit. The patient was give a dose of Bactrim while in the ED. The patient was discharged with Bactrim DS #1 1/2 tabs to take 1/2 tab by mouth 2 times per day and a script for Bactrim (80/400) #10 to take 1 by mouth 2 times per day. If the patient has any additional symptoms or concerns, the patient should follow- up with her primary care facility or return to the emergency department. <Juan Pablo Childs M - Last Filed: 01/08/18 19:47> Departure - Departure Time of Disposition: 19:44 Condition: Fair - Discharge Information *PRESCRIPTION DRUG MONITORING PROGRAM REVIEWED*: Not Applicable *COPY OF PRESCRIPTION DRUG MONITORING REPORT IN PATIENT DEB: Not Applicable I have read and agree with the documentation that has been completed regarding this visit. By signing this record, I attest that the documentation was completed in my physical presence and is an accurate record of the encounter.
[2018-01-08 19:05] LABS: ANION GAP 10.4
[2018-01-08 19:31] VITALS: BP 114/61
[2018-01-08] MEDS ORDERED: Sulfamethoxazole/Trimethoprim 800-160 MG Tab ONE (19:44)
[2018-01-08] MEDS ORDERED: Acetaminophen/HYDROcodone 325-5 MG Tab ONE (19:56)
== END 2018-01-08 19:56 | disposition home or self-care (01) ==
LOC: DL.ED 16:58
DX: I87.2 Venous insufficiency (chronic) (peripheral) (principal); I12.9 Hypertensive chronic kidney disease with stage 1 through stage 4 chronic kidney disease, or unspecified chronic kidney disease; N18.9 Chronic kidney disease, unspecified; I25.2 Old myocardial infarction; K21.9 Gastro-esophageal reflux disease without esophagitis; Z79.899 Other long term (current) drug therapy; Z79.82 Long term (current) use of aspirin; Z88.8 Allergy status to other drugs, medicaments and biological substances
CPT/HCPCS: 36415; 80053; 83605; 85025; 85610; 86140; 99283; A9270

== ENCOUNTER 2019-01-04 20:11 | Emergency (ER) | payer MEDICARE, OTHER ==
[2019-01-04 21:43] VITALS: BP 135/75
--- NOTE | 2019-01-04 23:52 | EDM.PDOC ---
ED HPI GENERAL MEDICAL PROBLEM - General Chief Complaint: General Stated Complaint: BATHROOM PROBLEM Time Seen by Provider: 01/04/19 23:00 Source of Information: Reports: Patient, Family History Limitations: Reports: No Limitations - History of Present Illness INITIAL COMMENTS - FREE TEXT/NARRATIVE: ED with c/o constipation, abdominal fulness rectal pressure On anticoagulant and nted blood on tissue tonight from straining. Daughter concerned as patient reported trying to manually remove stool. Patient on chronic narcotics for leg pain. Has not taken sonokot recently. No vomiting, no fever. While waiting in ED moderate bowel movement, Feeling normal . No further pain or pressure. Rectal Pain Score (Numeric/FACES): 4 - Related Data Allergies Allergy/AdvReac Type Severity Reaction Status Date / Time BULMARO Inhibitors Allergy Other Verified 01/08/18 17:21 lisinopril Allergy Cough Verified 01/08/18 17:21 losartan potassium Allergy Cannot Verified 01/08/18 17:21 [From Darrel] Remember Home Meds: Home Meds Acetaminophen [Pain & Fever] 500 mg PO ASDIRECTED PRN 09/28/13 [History] Loratadine [Claritin RediTabs] 5 mg PO DAILY PRN 09/28/13 [History] Multivitamin [Multi-Vitamin Daily] 0.5 each PO DAILY 09/28/13 [History] Warfarin [Coumadin] 2 mg PO DAILY 09/28/13 [History] Ca Carb & Gluc/Mag Ox & Gluc [Calcium Magnesium Caplet] 1 tab PO DAILY 02/20/15 [History] Calcium Carbonate/Vitamin D3 [Oyster Shell Calcium-Vit D Tab] 1 each PO DAILY [History] Citalopram Hydrobromide [Citalopram HBr] 10 mg PO DAILY 04/04/16 [History] Famotidine [Take Home: Famotidine 20 MG, 3 Tab Pack] 20 mg PO BID 04/04/16 [ History] Aspirin [Ecotrin EC] 81 mg PO DAILY 08/21/16 [History] Furosemide [Lasix] 40 mg PO DAILY 08/21/16 [History] Metolazone [Zaroxolyn] 2.5 mg PO .Q48H 08/21/16 [History] Metoprolol Tartrate 50 mg PO ACDINNER 08/21/16 [History] Metoprolol Tartrate 100 mg PO DAILY 08/21/16 [History] atorvaSTATin [Lipitor] 40 mg PO BEDTIME 08/21/16 [History] Potassium Chloride [Klor-Con 10] 20 meq PO TIDAC #90 tab.er 08/23/16 [Rx] glipiZIDE [Glucotrol XL] 2.5 mg PO DAILY@0800 #30 tab.er 08/23/16 [Rx] Past Medical History HEENT History: Reports: Impaired Vision Cardiovascular History: Reports: Blood Clots/VTE/DVT, High Cholesterol, Hypertension, [place], PVD, Stents Other Cardiovascular History: valvular heart disease Respiratory History: Reports: None Gastrointestinal History: Reports: GERD Genitourinary History: Reports: Chronic Renal Insuffiency, Other (See Below) Other Genitourinary History: renal insufficiency 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 Dermatologic History: Reports: Venous Stasis Dermatitis Other Dermatologic History: Vein surg. 50 years ago - Infectious Disease History Infectious Disease History: Reports: Chicken Pox, Measles, MRSA, Mumps, Pertussis (Whooping Cough) - Past Surgical History HEENT Surgical History: Reports: Cataract Surgery Cardiovascular Surgical History: Reports: Coronary Artery Stent Musculoskeletal Surgical History: Reports: Hip Replacement Social & Family History - Family History Family Medical History: Noncontributory - Tobacco Use Smoking Status *Q: Unknown Ever Smoked - Caffeine Use Caffeine Use: Reports: Soda - Recreational Drug Use Recreational Drug Use: No - Living Situation & Occupation Occupation: Retired ED ROS GENERAL - Review of Systems Review Of Systems: ROS reveals no pertinent complaints other than HPI. ED EXAM, GENERAL - Physical Exam Exam: See Below Exam Limited By: No Limitations General Appearance: Alert, No Apparent Distress Eye Exam: Bilateral Eye: EOMI Ears: Normal External Exam, Hearing Grossly Normal Nose: Normal Inspection Throat/Mouth: Normal Inspection Head: Atraumatic, Normocephalic Respiratory/Chest: No Respiratory Distress, Lungs Clear, Normal Breath Sounds Cardiovascular: Regular Rate, Rhythm GI/Abdominal: Normal Bowel Sounds, Soft, Non-Tender. No: Distended, Guarding, Rebound, Tender Rectal (Female) Exam: Normal Rectal Tone, Tenderness. No: Hemorrhoids (scant red blood no stool in rectal vault) Extremities: Pedal Edema Neurological: Alert, Oriented, Normal Cognition Psychiatric: Normal Affect Course - Vital Signs Last Recorded V/S: Last Vital Signs Temp 97.6 F 01/04/19 21:42 Pulse 76 01/04/19 21:42 Resp 16 01/04/19 21:42 BP 135/75 01/04/19 21:42 Pulse Ox 98 01/04/19 21:42 - Orders/Labs/Meds Orders: Active Orders 24 hr Category Date Time Status CULTURE URINE [RM] Routine Lab 01/04/19 22:21 Received Labs: Laboratory Tests 01/04/19 01/04/19 Range/Units 22:21 22:58 PT 38.6 H D (9.0-12.0) SEC INR 4.1 H (0.9-1.2) Urine Color Yellow (YELLOW) Urine Appearance Slightly cloudy (CLEAR) Urine pH 7.0 (5.0-9.0) Ur Specific [place] 1.015 (1.005-1.030) Urine Protein Trace H (NEGATIVE) Urine Glucose (UA) Negative (NEGATIVE) Urine Ketones Trace H (NEGATIVE) Urine Occult Blood Small H (NEGATIVE) Urine Nitrite Negative (NEGATIVE) Urine Bilirubin Negative (NEGATIVE) Urine Urobilinogen 0.2 (0.2-1.0) mg/dL Ur Leukocyte Esterase Small H (NEGATIVE) Urine RBC 10-20 H /HPF Urine WBC >100 H (0-5/HPF) /HPF Ur Epithelial Cells Moderate H (NOT SEEN) /HPF Urine Bacteria Few (0-FEW/HPF) /HPF Hyaline Casts Moderate H (NOT SEEN) /LPF - Radiology Interpretation Free Text/Narrative:: [facility] Final Radiology Report Call: [phone] assistance Online chat: [email or web address] Name: GIO TAYLOR Age: 88Years F Date: 01/04/2019 SSN: -- : [id number] Study: XR ABDOMEN COMPLETE W DECUBITUS &/OR ERECT VIEWS Requesting Physician: MAEVE SINGH Images: 2 Addl Studies: Provided Clinical History: Contrast: Contrast Medium: Contrast Amount: Contrast Method: CONFIDENTIALITY STATEMENT This report is intended only for use by the referring physician, and only in accordance with law. If you received this in error, call [phone]. Page 1 of 1 EXAM: XR Abdomen, 3 or More Views EXAM DATE/TIME: 01/04/2019 11:05 PM CLINICAL HISTORY: 88 years old, female; Constipation TECHNIQUE: Imaging protocol: Frontal view of the abdomen/pelvis with upright view of the abdomen and one or more additional views. COMPARISON: No relevant prior studies available. FINDINGS: Gastrointestinal tract: Normal. No bowel dilation. Intraperitoneal space: Normal. No free air. Bones/joints: Unremarkable for age. IMPRESSION: No acute findings. Thank you for allowing us to participate in the care of your patient. Dictated and Authenticated by: Edwin Edward MD 01/04/2019 11:39 PM Central Time ([place] & [place] 01/05/19 06:11 Departure - Departure Time of Disposition: 23:48 Disposition: Home, Self-Care 01 Condition: Good Clinical Impression: Constipation Qualifiers: Constipation type: slow transit constipation Qualified Code(s): K59.01 - Slow transit constipation - Discharge Information *PRESCRIPTION DRUG MONITORING PROGRAM REVIEWED*: No *COPY OF PRESCRIPTION DRUG MONITORING REPORT IN PATIENT DEB: No Instructions: Constipation, Adult Forms: ED Department Discharge Additional Instructions: cool compress miralax one capful in 8 ounces of water or liquid daily as needed follow up [facility] PCP regarding coumadin dosing - My Orders Last 24 Hours: My Active Orders 01/04/19 22:21 CULTURE URINE [RM] Routine - Assessment/Plan Last 24 Hours: My Active Orders 01/04/19 22:21 CULTURE URINE [RM] Routine
== END 2019-01-04 23:59 | disposition home or self-care (01) ==
LOC: DL.ED 20:11
DX: K59.01 Slow transit constipation (principal); I13.10 Hypertensive heart and chronic kidney disease without heart failure, with stage 1 through stage 4 chronic kidney disease, or unspecified chronic kidney disease; N18.9 Chronic kidney disease, unspecified; I25.2 Old myocardial infarction; E78.00 Pure hypercholesterolemia, unspecified; K21.9 Gastro-esophageal reflux disease without esophagitis; M19.90 Unspecified osteoarthritis, unspecified site; Z86.718 Personal history of other venous thrombosis and embolism; Z79.01 Long term (current) use of anticoagulants; Z88.8 Allergy status to other drugs, medicaments and biological substances; Z79.82 Long term (current) use of aspirin; Z79.899 Other long term (current) drug therapy
CPT/HCPCS: 36415; 74019; 81001; 85610; 87086; 87088; 87186; 99284-25

== ENCOUNTER 2019-07-28 21:08 | Inpatient (IN) | payer MEDICARE, OTHER ==
[2019-07-28] MEDS ORDERED: Acetaminophen/HYDROcodone 325-10 MG Tab PO ONE (21:25)
--- NOTE | 2019-07-28 21:31 | EDM.PDOC ---
ED HPI GENERAL MEDICAL PROBLEM - General Chief Complaint: Skin Complaint Stated Complaint: LEGS SORES Time Seen by Provider: 07/28/19 21:27 Source of Information: Reports: Patient, Family History Limitations: Reports: No Limitations - History of Present Illness INITIAL COMMENTS - FREE TEXT/NARRATIVE: pt states leg got more swollen and looks worse and hurts more. lives alone but daughter comes to check on her. 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 Left Lower Leg Pain Score (Numeric/FACES): 7 - Related Data Allergies Allergy/AdvReac Type Severity Reaction Status Date / Time BULMARO Inhibitors Allergy Other Verified 07/28/19 21:42 lisinopril Allergy Cough Verified 07/28/19 21:42 losartan potassium Allergy Cannot Verified 07/28/19 21:42 [From Darrel] Remember Home Meds: Home Meds Acetaminophen [Pain & Fever] 500 mg PO ASDIRECTED PRN 09/28/13 [History] Loratadine [Claritin RediTabs] 5 mg PO DAILY PRN 09/28/13 [History] Multivitamin [Multi-Vitamin Daily] 0.5 each PO DAILY 09/28/13 [History] Warfarin [Coumadin] 2 mg PO DAILY 09/28/13 [History] Ca Carb & Gluc/Mag Ox & Gluc [Calcium Magnesium Caplet] 1 tab PO DAILY 02/20/15 [History] Calcium Carbonate/Vitamin D3 [Oyster Shell Calcium-Vit D Tab] 1 each PO DAILY [History] Citalopram Hydrobromide [Citalopram HBr] 10 mg PO DAILY 04/04/16 [History] Famotidine [Take Home: Famotidine 20 MG, 3 Tab Pack] 20 mg PO BID 04/04/16 [ History] Aspirin [Ecotrin EC] 81 mg PO DAILY 08/21/16 [History] Furosemide [Lasix] 40 mg PO DAILY 08/21/16 [History] Metolazone [Zaroxolyn] 2.5 mg PO .Q48H 08/21/16 [History] Metoprolol Tartrate 50 mg PO ACDINNER 08/21/16 [History] Metoprolol Tartrate 100 mg PO DAILY 08/21/16 [History] atorvaSTATin [Lipitor] 40 mg PO BEDTIME 08/21/16 [History] Potassium Chloride [Klor-Con 10] 20 meq PO TIDAC #90 tab.er 08/23/16 [Rx] glipiZIDE [Glucotrol XL] 2.5 mg PO DAILY@0800 #30 tab.er 08/23/16 [Rx] Past Medical History HEENT History: Reports: Impaired Vision Cardiovascular History: Reports: Blood Clots/VTE/DVT, High Cholesterol, Hypertension, [place], PVD, Stents Other Cardiovascular History: valvular heart disease Respiratory History: Reports: None Gastrointestinal History: Reports: GERD Genitourinary History: Reports: Chronic Renal Insuffiency, Other (See Below) Other Genitourinary History: renal insufficiency 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 Dermatologic History: Reports: Venous Stasis Dermatitis Other Dermatologic History: Vein surg. 50 years ago - Infectious Disease History Infectious Disease History: Reports: Chicken Pox, Measles, MRSA, Mumps, Pertussis (Whooping Cough) - Past Surgical History HEENT Surgical History: Reports: Cataract Surgery Cardiovascular Surgical History: Reports: Coronary Artery Stent Musculoskeletal Surgical History: Reports: Hip Replacement Social & Family History - Family History Family Medical History: Noncontributory - Tobacco Use Smoking Status *Q: Never Smoker Second Hand Smoke Exposure: No - Caffeine Use Caffeine Use: Reports: Coffee - Recreational Drug Use Recreational Drug Use: No - Living Situation & Occupation Occupation: Retired ED ROS GENERAL - Review of Systems Review Of Systems: Comprehensive ROS is negative, except as noted in HPI. ED EXAM, SKIN/RASH Exam: See Below Exam Limited By: No Limitations General Appearance: Alert, WD/WN, Mild Distress, Other (discomfort) Ears: Hearing Grossly Normal Throat/Mouth: Normal Voice, No Airway Compromise Head: Atraumatic Neck: Non-Tender, Full Range of Motion Respiratory/Chest: No Respiratory Distress Cardiovascular: Regular Rate, Rhythm GI/Abdominal: Soft, Non-Tender Extremities: Leg Pain (left leg swollen cellulitis with few open sores), Increased Warmth, Redness, Other Neurological: Alert, Oriented, Normal Cognition, No Motor/Sensory Deficits, Other (gait limited to discomfort) Psychiatric: Normal Affect, Normal Mood Skin: Warm, Dry, Normal Color Location, Skin: Lower Extremity, Left Characteristics: Erythematous Associated features: Tenderness, Swelling, Lymphangitis, Inflammation, Weeping Lymphatic: No Adenopathy Course - Vital Signs Last Recorded V/S: Last Vital Signs Temp 36.3 C 07/28/19 21:28 Pulse 94 07/28/19 21:28 Resp 18 07/28/19 21:28 BP 124/70 07/28/19 21:28 Pulse Ox 99 07/28/19 21:28 - Orders/Labs/Meds Orders: Active Orders 24 hr Category Date Time Status CULTURE BLOOD [BC] Stat Lab 07/28/19 21:35 Results CULTURE WOUND [RM] Routine Lab 07/28/19 21:16 Received diphenhydrAMINE [Benadryl] Med 07/28/19 23:23 Once 50 mg PO ONETIME ONE Labs: Laboratory Tests 07/28/19 07/28/19 07/28/19 Range/Units 21:35 21:35 21:35 WBC 7.0 (5.0-10.0) 10^3/uL RBC 4.57 (4.2-5.4) 10^6/uL Hgb 12.2 (12.0-16.0) g/dL Hct 36.4 L (37.0-47.0) % MCV 79.6 L D (80-100) fL MCH 26.7 L (27.0-34.0) pg MCHC 33.5 (33.0-35.0) g/dL Plt Count 138 L (150-450) 10^3/uL Neut % (Auto) 59.5 (42.2-75.2) % Lymph % (Auto) 30.4 (20.5-50.1) % [place] % (Auto) 8.9 H (2-8) % Eos % (Auto) 0.9 L (1.0-3.0) % Baso % (Auto) 0.3 (0.0-1.0) % PT (9.0-12.0) SEC INR (0.9-1.2) APTT 19.8 L (22.0-34.0) SEC Sodium 140 (136-145) mmol/L Potassium 3.7 (3.5-5.1) mmol/L Chloride 99 (98-107) mmol/L Carbon Dioxide 31 (21-32) mmol/L Anion Gap 13.7 H (7-13) mEq/L BUN 58 H (7-18) mg/dL Creatinine 2.00 H (0.55-1.02) mg/dL Est Cr Clr Drug Dosing 16.39 mL/min Estimated GFR (MDRD) 24 BUN/Creatinine Ratio 29.0 (No establ ref range) Glucose 157 H (74-99) mg/dL Lactic Acid (0.4-2.0) mmol/L Calcium 8.6 (8.5-10.1) mg/dL Total Bilirubin 0.6 (0.2-1.0) mg/dL AST 28 (15-37) U/L ALT 28 (14-59) U/L Alkaline Phosphatase 126 H (46-116) U/L Total Protein 7.0 (6.4-8.2) g/dL Albumin 3.3 L (3.4-5.0) g/dL Globulin 3.7 Albumin/Globulin Ratio 0.89 07/28/19/ Range/Units 21:35 21:35 WBC (5.0-10.0) 10^3/uL RBC (4.2-5.4) 10^6/uL Hgb (12.0-16.0) g/dL Hct (37.0-47.0) % MCV (80-100) fL MCH (27.0-34.0) pg MCHC (33.0-35.0) g/dL Plt Count (150-450) 10^3/uL Neut % (Auto) (42.2-75.2) % Lymph % (Auto) (20.5-50.1) % [place] % (Auto) (2-8) % Eos % (Auto) (1.0-3.0) % Baso % (Auto) (0.0-1.0) % PT 22.5 H D (9.0-12.0) SEC INR 2.4 H (0.9-1.2) APTT (22.0-34.0) SEC Sodium (136-145) mmol/L Potassium (3.5-5.1) mmol/L Chloride (98-107) mmol/L Carbon Dioxide (21-32) mmol/L Anion Gap (7-13) mEq/L BUN (7-18) mg/dL Creatinine (0.55-1.02) mg/dL Est Cr Clr Drug Dosing mL/min Estimated GFR (MDRD) BUN/Creatinine Ratio (No establ ref range) Glucose (74-99) mg/dL Lactic Acid 1.2 (0.4-2.0) mmol/L Calcium (8.5-10.1) mg/dL Total Bilirubin (0.2-1.0) mg/dL AST (15-37) U/L ALT (14-59) U/L Alkaline Phosphatase (46-116) U/L Total Protein (6.4-8.2) g/dL Albumin (3.4-5.0) g/dL Globulin Albumin/Globulin Ratio Meds: Medications Discontinued Medications Generic Name Dose Route Start Last Admin Trade Name Freq PRN Reason Stop Dose Admin Hydrocodone Bitart/Acetaminophen 1 tab 07/28/19 21:25 07/28/19 21:38 [place] 325-10 Mg PO 07/28/19 21:26 1 tab ONETIME ONE Administration Clindamycin Phosphate 900 mg/ 106 mls @ 200 mls/hr 07/28/19 21:59 07/28/19 22 :15 Sodium Chloride IV 07/28/19 22:30 200 mls/hr ONETIME ONE Administration - Re-Assessments/Exams Free Text/Narrative Re-Assessment/Exam: 07/28/19 23:[address] Martin who kindly admitted pt Departure - Departure Time of Disposition: 23:23 Disposition: Admitted As Inpatient 68 Condition: Fair Clinical Impression: Cellulitis of leg, left - Discharge Information Forms: ED Department Discharge Sepsis Event Note - Focused Exam Vital Signs: Vital Signs Temp Pulse Resp BP Pulse Ox 07/28/19 21:28 36.3 C 94 18 124/70 99 Date Exam was Performed: 07/28/19 Time Exam was Performed: 23:23 - My Orders Last 24 Hours: My Active Orders 07/28/19 21:16 CULTURE WOUND [RM] Routine 07/28/19 21:35 CULTURE BLOOD [BC] Stat 07/28/19 23:23 diphenhydrAMINE [Benadryl] 50 mg PO ONETIME ONE - Assessment/Plan Last 24 Hours: My Active Orders 07/28/19 21:16 CULTURE WOUND [RM] Routine 07/28/19 21:35 CULTURE BLOOD [BC] Stat 07/28/19 23:23 diphenhydrAMINE [Benadryl] 50 mg PO ONETIME ONE
[2019-07-28] MEDS ORDERED: Clindamycin Phosphate 900 MG in Sodium Chloride 0.9% 100 ML IV ONE (21:59)
[2019-07-28 22:17] LABS: ANION GAP 13.7 mEq/L (7-13)
[2019-07-28] MEDS ORDERED: diphenhydrAMINE 50 MG Cap PO ONE (23:23)
--- NOTE | 2019-07-29 00:16 | PCM.HP ---
H&P History of Present Illness - General Date of Service: 07/29/19 Admit Problem/Dx: Admission Diagnosis/Problem Admission Diagnosis/Problem Cellulitis Source of Information: Patient, Family, Old Records History Limitations: Reports: No Limitations - History of Present Illness Initial Comments - Free Text/Narative: This is a 89 y/o F who lives alone, has past medical history which is significant for hypertension, dyslipidemia, osteoarthritis, hypothyroidism, chronic back pain, valvular heart disease, and chronic kidney disease stage III with a baseline creatinine than ranged from 1.0 to 1.4 mg/dL. But after LA and starting Diovan base line shifted to 2.0-2.4 mg/dl. She was last seen in renal clinic on 05/10/19 and then creatinine was at 1.9 mg/dl The patient is denying any use of NSAIDs or any other [id number] medications. Pt was admitted to hospital in 2014 with NSTEMI and got stented to to Proximal LAD and since then she has been doing well. Today she was brought into ED at [facility] by daughter with swollen and red left lower leg and it is getting worse and hurts more, CXR of LE was done and negative for osteomyelitis. Pt is admitted for Cellulitis of Left LE Onset of Symptoms: Reports: Gradual Duration of Symptoms: Reports: Day(s): Location: Reports: Lower Extremity, Left Quality: Reports: Sharp, Stabbing Improves with: Reports: Immobilization Worsens with: Reports: Movement Associated Symptoms: Reports: Rash Left Lower Leg Pain Score (Numeric/FACES): 7 - Related Data Allergies/Adverse Reactions: Allergies Allergy/AdvReac Type Severity Reaction Status Date / Time BULMARO Inhibitors Allergy Other Verified 07/28/19 21:42 lisinopril Allergy Cough Verified 07/28/19 21:42 losartan potassium Allergy Cannot Verified 07/28/19 21:42 [From Wyzaar] Remember Home Medications: Home Meds Acetaminophen [Pain & Fever] 500 mg PO ASDIRECTED PRN 09/28/13 [History] Loratadine [Claritin RediTabs] 5 mg PO DAILY PRN 09/28/13 [History] Multivitamin [Multi-Vitamin Daily] 1 each PO DAILY 09/28/13 [History] Warfarin [Coumadin] 2 mg PO DAILY 09/28/13 [History] Ca Carb & Gluc/Mag Ox & Gluc [Calcium Magnesium Caplet] 1 tab PO DAILY 02/20/15 [History] Calcium Carbonate/Vitamin D3 [Oyster Shell Calcium-Vit D Tab] 1 each PO DAILY [History] Citalopram Hydrobromide [Citalopram HBr] 20 mg PO DAILY 04/04/16 [History] Aspirin [Ecotrin EC] 81 mg PO DAILY 08/21/16 [History] Furosemide [Lasix] 40 mg PO DAILY 08/21/16 [History] Metolazone [Zaroxolyn] 2.5 mg PO .Q48H 08/21/16 [History] Metoprolol Tartrate 50 mg PO DAILY 08/21/16 [History] Metoprolol Tartrate 100 mg PO ACDINNER 08/21/16 [History] atorvaSTATin [Lipitor] 40 mg PO BEDTIME 08/21/16 [History] glipiZIDE [Glucotrol XL] 2.5 mg PO DAILY@0800 #30 tab.er 08/23/16 [Rx] Potassium Chloride [Klor-Con 10] 20 meq PO BIDAC 07/29/19 [History] Past Medical History HEENT History: Reports: Impaired Vision Cardiovascular History: Reports: Blood Clots/VTE/DVT, High Cholesterol, Hypertension, [place], PVD, Stents Other Cardiovascular History: valvular heart disease Respiratory History: Reports: None Gastrointestinal History: Reports: GERD Genitourinary History: Reports: Chronic Renal Insuffiency, Other (See Below) Other Genitourinary History: renal insufficiency 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 Dermatologic History: Reports: Venous Stasis Dermatitis Other Dermatologic History: Vein surg. 50 years ago - Infectious Disease History Infectious Disease History: Reports: Chicken Pox, Measles, MRSA, Mumps, Pertussis (Whooping Cough) - Past Surgical History HEENT Surgical History: Reports: Cataract Surgery Cardiovascular Surgical History: Reports: Coronary Artery Stent Musculoskeletal Surgical History: Reports: Hip Replacement Social & Family History - Family History Family Medical History: Noncontributory - Tobacco Use Smoking Status *Q: Never Smoker Second Hand Smoke Exposure: No - Caffeine Use Caffeine Use: Reports: Coffee - Recreational Drug Use Recreational Drug Use: No - Living Situation & Occupation Occupation: Retired H&P Review of Systems - Review of Systems: Review Of Systems: See Below General: Reports: Weakness. Denies: Fever, Chills, Diaphoresis, Weight Gain HEENT: Denies: Sinus Congestion, Sore Throat, Visual Changes Pulmonary: Denies: Shortness of Breath, Wheezing, Pleuritic Chest Pain, Cough, Sputum Cardiovascular: Denies: Chest Pain, Dyspnea on Exertion, Lightheadedness Gastrointestinal: Denies: Abdominal Pain, Difficulty Swallowing, Nausea, Vomiting Genitourinary: Denies: Dysuria, Burning, Urgency, Flank Pain Musculoskeletal: Reports: Leg Pain (left). Denies: Neck Pain, Muscle Pain, Muscle Stiffness Skin: Reports: Rash. Denies: Cyanosis, Jaundice, Bruising, Pruritis Psychiatric: Denies: Confusion, Anxiety Neurological: Denies: Confusion, Numbness, Tremors Hematologic/Lymphatic: Reports: No Symptoms Immunologic: Reports: No Symptoms Exam - Exam Exam: See Below - Vital Signs Vital Signs: Last Vital Signs Temp 36.3 C 07/28/19 21:28 Pulse 94 07/28/19 21:28 Resp 18 07/28/19 21:28 BP 124/70 07/28/19 21:28 Pulse Ox 99 07/28/19 21:28 Weight: 72.938 kg - Exam Quality Assessment: DVT Prophylaxis. No: Supplemental Oxygen, Urinary Catheter General: Alert, Oriented, Cooperative HEENT: Conjunctiva Clear, EOMI, Hearing Intact, Mucosa Moist & [place], Pupils Equal, Pupils Reactive Neck: Supple, Full Range of Motion. No: Lymphadenopathy, JVD, Thyromegaly Lungs: Clear to Auscultation, Normal Respiratory Effort. No: Crackles, Wheezing Cardiovascular: Regular Rate, Regular Rhythm, Systolic Murmur GI/Abdominal Exam: Normal Bowel Sounds, Non-Tender, No Distention, No Abnormal Bruit. No: Rigid, Rebound, Tender (Female) Exam: Deferred Rectal (Female) Exam: Deferred Back Exam: Normal Inspection, Full Range of Motion Extremities: Normal Inspection, No Pedal Edema Skin: Warm, Dry, Intact Neurological: Cranial Nerves Intact, Reflexes Equal Bilateral Neuro Extensive - Mental Status: Alert, Oriented x3, Normal Mood/Affect, Normal Cognition, Memory Intact Neuro Extensive - Motor, Sensory, Reflexes: CN II-XII Intact Psychiatric: Alert, Normal Affect, Normal Mood - Patient Data Lab Results Last 24 hrs: Laboratory Results - last 24 hr 07/28/19 07/28/19 07/28/19 Range/Units 21:35 21:35 21:35 WBC 7.0 (5.0-10.0) 10^3/uL RBC 4.57 (4.2-5.4) 10^6/uL Hgb 12.2 (12.0-16.0) g/dL Hct 36.4 L (37.0-47.0) % MCV 79.6 L D (80-100) fL MCH 26.7 L (27.0-34.0) pg MCHC 33.5 (33.0-35.0) g/dL Plt Count 138 L (150-450) 10^3/uL Neut % (Auto) 59.5 (42.2-75.2) % Lymph % (Auto) 30.4 (20.5-50.1) % [place] % (Auto) 8.9 H (2-8) % Eos % (Auto) 0.9 L (1.0-3.0) % Baso % (Auto) 0.3 (0.0-1.0) % PT (9.0-12.0) SEC INR (0.9-1.2) APTT 19.8 L (22.0-34.0) SEC Sodium 140 (136-145) mmol/L Potassium 3.7 (3.5-5.1) mmol/L Chloride 99 (98-107) mmol/L Carbon Dioxide 31 (21-32) mmol/L Anion Gap 13.7 H (7-13) mEq/L BUN 58 H (7-18) mg/dL Creatinine 2.00 H (0.55-1.02) mg/dL Est Cr Clr Drug Dosing 16.39 mL/min Estimated GFR (MDRD) 24 BUN/Creatinine Ratio 29.0 (No establ ref range) Glucose 157 H (74-99) mg/dL Lactic Acid (0.4-2.0) mmol/L Calcium 8.6 (8.5-10.1) mg/dL Total Bilirubin 0.6 (0.2-1.0) mg/dL AST 28 (15-37) U/L ALT 28 (14-59) U/L Alkaline Phosphatase 126 H (46-116) U/L Total Protein 7.0 (6.4-8.2) g/dL Albumin 3.3 L (3.4-5.0) g/dL Globulin 3.7 Albumin/Globulin Ratio 0.89 07/28/19 07/28/19 Range/Units 21:35 21:35 WBC (5.0-10.0) 10^3/uL RBC (4.2-5.4) 10^6/uL Hgb (12.0-16.0) g/dL Hct (37.0-47.0) % MCV (80-100) fL MCH (27.0-34.0) pg MCHC (33.0-35.0) g/dL Plt Count (150-450) 10^3/uL Neut % (Auto) (42.2-75.2) % Lymph % (Auto) (20.5-50.1) % [place] % (Auto) (2-8) % Eos % (Auto) (1.0-3.0) % Baso % (Auto) (0.0-1.0) % PT 22.5 H D (9.0-12.0) SEC INR 2.4 H (0.9-1.2) APTT (22.0-34.0) SEC Sodium (136-145) mmol/L Potassium (3.5-5.1) mmol/L Chloride (98-107) mmol/L Carbon Dioxide (21-32) mmol/L Anion Gap (7-13) mEq/L BUN (7-18) mg/dL Creatinine (0.55-1.02) mg/dL Est Cr Clr Drug Dosing mL/min Estimated GFR (MDRD) BUN/Creatinine Ratio (No establ ref range) Glucose (74-99) mg/dL Lactic Acid 1.2 (0.4-2.0) mmol/L Calcium (8.5-10.1) mg/dL Total Bilirubin (0.2-1.0) mg/dL AST (15-37) U/L ALT (14-59) U/L Alkaline Phosphatase (46-116) U/L Total Protein (6.4-8.2) g/dL Albumin (3.4-5.0) g/dL Globulin Albumin/Globulin Ratio Result Diagrams: 07/28/19 21:35 07/28/19 21:35 [place]er Results Last 24 hrs: Microbiology 07/28/19 21:35 Anaerobic Blood Culture - Final Blood - Problem List (1) CKD (chronic kidney disease) stage 3, GFR 30-59 ml/min SNOMED Code(s): 045860025 ICD Code: N18.3 - CHRONIC KIDNEY DISEASE, STAGE 3 (MODERATE) Status: Acute Current Visit: Yes (2) Cellulitis of leg, left SNOMED Code(s): 624770927 ICD Code: L03.116 - CELLULITIS OF LEFT LOWER LIMB Status: Acute Current Visit: No (3) Hypertension SNOMED Code(s): 74804192 ICD Code: I10 - ESSENTIAL (PRIMARY) HYPERTENSION Status: Acute Current Visit: No Qualifiers: Hypertension type: unspecified secondary hypertension Qualified Code(s): I15.9 - Secondary hypertension, unspecified Problem List Initiated/Reviewed/Updated: Yes Orders Last 24hrs: Active Orders 24 hr Category Date Time Status Admission Diagnosis [ADT] Stat ADT 07/28/19 23:24 Ordered Admission Status [Patient Status] [ADT] Routine ADT 07/28/19 23:24 Active CULTURE BLOOD [BC] Stat Lab 07/28/19 21:35 Results CULTURE WOUND [RM] Routine Lab 07/28/19 21:16 Received Assessment/Plan Comment:: This is a 89 y/o F who lives alone, has past medical history which is significant for hypertension, dyslipidemia, osteoarthritis, hypothyroidism, chronic back pain, valvular heart disease, and chronic kidney disease stage III with a baseline creatinine than ranged from 1.0 to 1.4 mg/dL. But after LA and starting Diovan base line shifted to 2.0-2.4 mg/dl. She was last seen in renal clinic on 05/10/19 and then creatinine was at 1.9 mg/dl The patient is denying any use of NSAIDs or any other [id number] medications. Pt was admitted to hospital in 2014 with NSTEMI and got stented to to Proximal LAD and since then she has been doing well. Today she was brought into ED at [facility] by daughter with swollen and red left lower leg and it is getting worse and hurts more, CXR of LE was done and negative for osteomyelitis. Pt is admitted for Cellulitis of Left LE Impression and Plan: 1. Left LE Cellulitis: The pt with history of Diabetes and has skin break with erythema and pain -Will start her on Zosyn and Ceftriaxone -Will follow the B/C done in ER -Control pain and chage dressing wet to dry 2. Hypertension: BP acceptable and will continue Metoprolol at 50 mg daily 3. Diabetes Ii: Newly diagnosed and on Glipizide at 2.5 mg daily 4. Edema of Extremities: will continue Furosemide at 40 mg daily and Metolazone at 2.5 mg every otherday 5. Dyslipidemia: continue statin DVT prophylaxis: on Coumadin , pharmacy to dose Code Status: Discussed with pt and she is Full Code
[2019-07-29] MEDS ORDERED: Docusate Sodium 100 MG Cap PO PRN (01:12)
[2019-07-29] MEDS ORDERED: Piperacillin/Tazobactam 3.375 GM in Sodium Chloride 0.9% 100 ML IV ONE (01:15)
[2019-07-29] MEDS ORDERED: Piperacillin/Tazobactam 3.375 GM in Sodium Chloride 0.9% 100 ML IV SCH (01:15)
[2019-07-29] MEDS: cefTRIAXone 2 GM in Sodium Chloride 0.9% 100 ML IV SCH (02:25)
[2019-07-29] MEDS ORDERED: Sodium Chloride 0.9% 10 ML Syringe FLUSH PRN (03:13)
[2019-07-29] MEDS: Acetaminophen/oxyCODONE 325-5 MG Tab PO PRN ×3 (05:55→23:27)
[2019-07-29] MEDS ORDERED: Potassium Chloride 10 MEQ Tab.ER PO SCH (06:00)
[2019-07-29] MEDS ORDERED: Warfarin 2 MG Tab PO SCH (09:00)
[2019-07-29] MEDS: Multivitamins,Therapeutic Tab PO SCH (09:01)
[2019-07-29] MEDS: glipiZIDE 2.5 MG Tab.ER PO SCH (09:02)
[2019-07-29] MEDS: Furosemide 40 MG Tab PO SCH (09:02)
[2019-07-29] MEDS: Aspirin 81 MG Tab.EC PO SCH (09:02)
[2019-07-29] MEDS: Potassium Chloride 10 MEQ Tab.ER PO SCH ×2 (09:02→18:17)
[2019-07-29] MEDS: Citalopram 20 MG Tab PO SCH (09:03)
[2019-07-29] MEDS: Insulin Lispro 100 Units/ML 3 ML Vial SUBCUT SCH ×4 (09:03→21:07)
[2019-07-29] MEDS: Metoprolol Tartrate 50 MG Tab PO SCH (09:05)
[2019-07-29] MEDS: Piperacillin/Tazobactam 2.25 GM in Sodium Chloride 0.9% 50 ML IV SCH ×2 (09:46→18:18)
[2019-07-29] MEDS: Metolazone 2.5 MG Tab PO SCH (09:48)
--- NOTE | 2019-07-29 12:40 | PCM.PN ---
- General Info Date of Service: 07/29/19 Admission Dx/Problem (Free Text): Admission Diagnosis/Problem Admission Diagnosis/Problem Cellulitis Subjective Update: pt was seen in room today, she is doing well, no nausea or vomiting, appetite is good, No fever or Chill Functional Status: Reports: Pain Controlled, Tolerating Diet, Ambulating, Urinating - Review of Systems General: Reports: Weakness, Appetite (acceptable). Denies: Fever, Chills HEENT: Denies: Ear Pain, Sinus Congestion, Sore Throat, Visual Changes Pulmonary: Denies: Shortness of Breath, Cough, Sputum, Wheezing Cardiovascular: Denies: Chest Pain, Dyspnea on Exertion, Lightheadedness Gastrointestinal: Denies: Abdominal Pain, Difficulty Swallowing, Nausea, Vomiting Genitourinary: Denies: Dysuria, Burning, Urgency, Flank Pain Musculoskeletal: Reports: Leg Pain (left le pain). Denies: Neck Pain Skin: Reports: Rash. Denies: Cyanosis, Jaundice, Bruising, Pruritis Neurological: Denies: Confusion, Numbness, Tingling, Tremors Psychiatric: Denies: Confusion, Anxiety - Patient Data Vitals - Most Recent: Last Vital Signs Temp 36.4 C 07/29/19 12:00 Pulse 74 07/29/19 12:00 Resp 16 07/29/19 12:00 BP 124/58 L 07/29/19 12:00 Pulse Ox 96 07/29/19 12:00 Weight - Most Recent: 72.938 kg I&O - Last 24 Hours: Intake & Output 07/28/19 07/29/19 07/29/19 22:59 06:59 14:59 Intake Total 284 200 Output Total 100 Balance 184 200 Lab Results Last 24 Hours: Laboratory Results - last 24 hr 07/28/19 07/28/19 07/28/19 Range/Units 21:35 21:35 21:35 WBC 7.0 (5.0-10.0) 10^3/uL RBC 4.57 (4.2-5.4) 10^6/uL Hgb 12.2 (12.0-16.0) g/dL Hct 36.4 L (37.0-47.0) % MCV 79.6 L D (80-100) fL MCH 26.7 L (27.0-34.0) pg MCHC 33.5 (33.0-35.0) g/dL Plt Count 138 L (150-450) 10^3/uL Neut % (Auto) 59.5 (42.2-75.2) % Lymph % (Auto) 30.4 (20.5-50.1) % Travis % (Auto) 8.9 H (2-8) % Eos % (Auto) 0.9 L (1.0-3.0) % Baso % (Auto) 0.3 (0.0-1.0) % PT (9.0-12.0) SEC INR (0.9-1.2) APTT 19.8 L (22.0-34.0) SEC Sodium 140 (136-145) mmol/L Potassium 3.7 (3.5-5.1) mmol/L Chloride 99 (98-107) mmol/L Carbon Dioxide 31 (21-32) mmol/L Anion Gap 13.7 H (7-13) mEq/L BUN 58 H (7-18) mg/dL Creatinine 2.00 H (0.55-1.02) mg/dL Est Cr Clr Drug Dosing 16.39 mL/min Estimated GFR (MDRD) 24 BUN/Creatinine Ratio 29.0 (No establ ref range) Glucose 157 H (74-99) mg/dL POC Glucose (83-110) mg/dl Lactic Acid (0.4-2.0) mmol/L Calcium 8.6 (8.5-10.1) mg/dL Total Bilirubin 0.6 (0.2-1.0) mg/dL AST 28 (15-37) U/L ALT 28 (14-59) U/L Alkaline Phosphatase 126 H (46-116) U/L Total Protein 7.0 (6.4-8.2) g/dL Albumin 3.3 L (3.4-5.0) g/dL Globulin 3.7 Albumin/Globulin Ratio 0.89 07/28/19 07/28/19 07/29/19 Range/Units 21:35 21:35 06:30 WBC (5.0-10.0) 10^3/uL RBC (4.2-5.4) 10^6/uL Hgb (12.0-16.0) g/dL Hct (37.0-47.0) % MCV (80-100) fL MCH (27.0-34.0) pg MCHC (33.0-35.0) g/dL Plt Count (150-450) 10^3/uL Neut % (Auto) (42.2-75.2) % Lymph % (Auto) (20.5-50.1) % Travis % (Auto) (2-8) % Eos % (Auto) (1.0-3.0) % Baso % (Auto) (0.0-1.0) % PT 22.5 H D 25.3 H (9.0-12.0) SEC INR 2.4 H 2.7 H (0.9-1.2) APTT (22.0-34.0) SEC Sodium (136-145) mmol/L Potassium (3.5-5.1) mmol/L Chloride (98-107) mmol/L Carbon Dioxide (21-32) mmol/L Anion Gap (7-13) mEq/L BUN (7-18) mg/dL Creatinine (0.55-1.02) mg/dL Est Cr Clr Drug Dosing mL/min Estimated GFR (MDRD) BUN/Creatinine Ratio (No establ ref range) Glucose (74-99) mg/dL POC Glucose (83-110) mg/dl Lactic Acid 1.2 (0.4-2.0) mmol/L Calcium (8.5-10.1) mg/dL Total Bilirubin (0.2-1.0) mg/dL AST (15-37) U/L ALT (14-59) U/L Alkaline Phosphatase (46-116) U/L Total Protein (6.4-8.2) g/dL Albumin (3.4-5.0) g/dL Globulin Albumin/Globulin Ratio 07/29/19 07/29/19 Range/Units 08:07 11:46 WBC (5.0-10.0) 10^3/uL RBC (4.2-5.4) 10^6/uL Hgb (12.0-16.0) g/dL Hct (37.0-47.0) % MCV (80-100) fL MCH (27.0-34.0) pg MCHC (33.0-35.0) g/dL Plt Count (150-450) 10^3/uL Neut % (Auto) (42.2-75.2) % Lymph % (Auto) (20.5-50.1) % Travis % (Auto) (2-8) % Eos % (Auto) (1.0-3.0) % Baso % (Auto) (0.0-1.0) % PT (9.0-12.0) SEC INR (0.9-1.2) APTT (22.0-34.0) SEC Sodium (136-145) mmol/L Potassium (3.5-5.1) mmol/L Chloride (98-107) mmol/L Carbon Dioxide (21-32) mmol/L Anion Gap (7-13) mEq/L BUN (7-18) mg/dL Creatinine (0.55-1.02) mg/dL Est Cr Clr Drug Dosing mL/min Estimated GFR (MDRD) BUN/Creatinine Ratio (No establ ref range) Glucose (74-99) mg/dL POC Glucose 124 H 175 H (83-110) mg/dl Lactic Acid (0.4-2.0) mmol/L Calcium (8.5-10.1) mg/dL Total Bilirubin (0.2-1.0) mg/dL AST (15-37) U/L ALT (14-59) U/L Alkaline Phosphatase (46-116) U/L Total Protein (6.4-8.2) g/dL Albumin (3.4-5.0) g/dL Globulin Albumin/Globulin Ratio [facility]er Results Last 24 Hours: Microbiology 07/28/19 21:35 Anaerobic Blood Culture - Final Blood Med Orders - Current: Current Medications Acetaminophen (Tylenol) 650 mg PO Q4H PRN PRN Reason: Pain (mild 1-3 )/fever Aspirin (Halfprin) 81 mg PO DAILY [facility] Last Admin: 07/29/19 09:02 Dose: 81 mg Atorvastatin Calcium (Lipitor) 40 mg PO BEDTIME [facility] Citalopram Hydrobromide (Celexa) 20 mg PO DAILY [facility] Last Admin: 07/29/19 09:03 Dose: 20 mg Docusate Sodium (Colace) 100 mg PO DAILY PRN PRN Reason: Constipation Furosemide (Lasix) 40 mg PO DAILY [facility] Last Admin: 07/29/19 09:02 Dose: 40 mg Glipizide (Glucotrol Xl) 2.5 mg PO WITHBREAKFAST [facility] Last Admin: 07/29/19 09:02 Dose: 2.5 mg Ceftriaxone Sodium 2 gm/ (Sodium Chloride) 100 mls @ 200 mls/hr IV Q24H [facility] Last Admin: 07/29/19 02:25 Dose: 200 mls/hr Piperacillin Sod/Tazobactam (Sod 2.25 gm/ Sodium Chloride) 50 mls @ 100 mls/hr IV Q8H [facility] Last Infusion: 07/29/19 10:16 Dose: Infused Insulin Human Lispro (Humalog) 0 unit SUBCUT WITHMEALSANDBED [facility]; Protocol Last Admin: 07/29/19 09:03 Dose: Not Given Metolazone (Zaroxolyn) 2.5 mg PO Q48H [facility] Last Admin: 07/29/19 09:48 Dose: 2.5 mg Metoprolol Tartrate (Lopressor) 100 mg PO DAILY [facility] Last Admin: 07/29/19 09:05 Dose: Not Given Multivitamins (Thera) 1 each PO DAILY [facility] Last Admin: 07/29/19 09:01 Dose: 1 each Oxycodone/Acetaminophen (Percocet 325-5 Mg) 1 tab PO Q8H PRN PRN Reason: Pain Last Admin: 07/29/19 05:55 Dose: 1 tab Potassium Chloride (Klor-Con 10) 20 meq PO BIDMEALS [facility] Last Admin: 07/29/19 09:02 Dose: 20 meq Sodium Chloride (Saline Flush) 10 ml FLUSH ASDIRECTED PRN PRN Reason: Keep Vein Open Warfarin Sodium (Pharmacy To Dose - Warfarin) 1 dose .XX ASDIRECTED [facility] Warfarin Sodium (Coumadin) 2 mg PO ONETIME ONE Stop: 07/29/19 14:01 Discontinued Medications Hydrocodone Bitart/Acetaminophen ([place] 325-10 Mg) 1 tab PO ONETIME ONE Stop: 07/28/19 21:26 Last Admin: 07/28/19 21:38 Dose: 1 tab Diphenhydramine HCl (Benadryl) 50 mg PO ONETIME ONE Stop: 07/28/19 23:24 Last Admin: 07/28/19 23:26 Dose: 50 mg Clindamycin Phosphate 900 mg/ (Sodium Chloride) 106 mls @ 200 mls/hr IV ONETIME ONE Stop: 07/28/19 22:30 Last Admin: 07/28/19 22:15 Dose: 200 mls/hr Piperacillin Sod/Tazobactam (Sod 3.375 gm/ Sodium Chloride) 100 mls @ 200 mls/ hr IV ONETIME ONE Stop: 07/29/19 01:44 Last Admin: 07/29/19 01:51 Dose: 200 mls/hr Warfarin Sodium (Coumadin) 2 mg PO DAILY [facility] - Exam Quality Assessment: DVT Prophylaxis, Skin Breakdown (left LE). No: Supplemental Oxygen, Urine Catheter General: Alert, Oriented, Cooperative, No Acute Distress HEENT: Pupils Equal, Pupils Reactive, EOMI, Mucous Membr. Moist/[place] Neck: Supple, No JVD, No Thyromegaly. No: Lymphadenopathy Lungs: Clear to Auscultation, Normal Respiratory Effort Cardiovascular: Regular Rate, Regular Rhythm, Murmurs GI/Abdominal Exam: Normal Bowel Sounds, Soft, Non-Tender, No Distention. No: Guarding, Rigid, Rebound (Female) Exam: Deferred Back Exam: Normal Inspection Extremities: Normal Inspection, No Pedal Edema Skin: Warm, Dry, Intact Wound/Incisions: Dressing Dry and Intact, No Drainage, Erythema Improving Neurological: No New Focal Deficit Psy/Mental Status: Alert, Normal Affect, Normal Mood Sepsis Event Note - Evaluation Sepsis Screening Result: No Definite Risk - Focused Exam Vital Signs: Vital Signs Temp Pulse Pulse Resp BP BP BP 07/29/19 12:00 36.4 C 74 16 124/58 L 07/29/19 09:05 85 124/52 L 07/29/19 08:00 36.6 C 85 18 124/52 L 07/29/19 04:30 36.9 C 78 16 117/54 L 07/29/19 01:00 Pulse Ox 07/29/19 12:00 96 07/29/19 09:05 07/29/19 08:00 96 07/29/19 04:30 95 07/29/19 01:00 97 Date Exam was Performed: 07/29/19 Time Exam was Performed: 12:35 - Problem List & Annotations (1) CKD (chronic kidney disease) stage 3, GFR 30-59 ml/min SNOMED Code(s): 477579807 Code(s): N18.3 - CHRONIC KIDNEY DISEASE, STAGE 3 (MODERATE) Status: Acute Current Visit: Yes (2) Cellulitis of leg, left SNOMED Code(s): 271727231 Code(s): L03.116 - CELLULITIS OF LEFT LOWER LIMB Status: Acute Current Visit: No (3) Hypertension SNOMED Code(s): 04157182 Code(s): I10 - ESSENTIAL (PRIMARY) HYPERTENSION Status: Acute Current Visit: No Qualifiers: Hypertension type: unspecified secondary hypertension Qualified Code(s): I15.9 - Secondary hypertension, unspecified - Problem List Review Problem List Initiated/Reviewed/Updated: Yes - My Orders Last 24 Hours: My Active Orders 07/29/19 00:58 Patient Status [ADT] Routine Up With Assistance [RC] ASDIRECTED Vital Signs [RC] Q4H DVT/VTE Prophylaxis Reflex [OM.PC] Routine Resuscitation Status Routine 07/29/19 01:00 Antiembolic Devices [RC] 09,21 Oxygen Therapy [RC] PRN Pulse Oximetry [RC] PRN VTE/DVT Education [RC] , Antiembolic Hose [OM.PC] Per Unit Routine 07/29/19 01:12 Acetaminophen [Tylenol] 650 mg PO Q4H PRN Docusate Sodium [Colace] 100 mg PO DAILY PRN 07/29/19 01:13 Acetaminophen/oxyCODONE [Percocet 325-5 MG] 1 tab PO Q8H PRN 07/29/19 01:14 Blood Glucose Check, Bedside [RC] QIDACANDBED 07/29/19 01:15 Pharmacy to Dose - Warfarin 1 dose .XX ASDIRECTED 07/29/19 01:30 cefTRIAXone [Rocephin] 2 gm Sodium Chloride 0.9% [Normal Saline] 100 ml IV Q24H 07/29/19 03:13 Sodium Chloride 0.9% [Saline Flush] 10 ml FLUSH ASDIRECTED PRN Saline Lock Insert [OM.PC] Routine 07/29/19 08:00 Insulin Lispro [HumaLOG] See Protocol SUBCUT WITHMEALSANDBED Potassium Chloride [Klor-Con 10] 20 meq PO BIDMEALS glipiZIDE [Glucotrol XL] 2.5 mg PO WITHBREAKFAST 07/29/19 09:00 Aspirin [Halfprin] 81 mg PO DAILY Citalopram [Celexa] 20 mg PO DAILY Furosemide [Lasix] 40 mg PO DAILY Metoprolol Tartrate [Lopressor] 100 mg PO DAILY Multivitamins,Therapeutic [Thera] 1 each PO DAILY metOLazone [Zaroxolyn] 2.5 mg PO Q48H 07/29/19 10:00 Piperacillin/Tazobactam [Zosyn] 2.25 gm Sodium Chloride 0.9% [Normal Saline] 50 ml IV Q8H 07/29/19 12:25 Communication Order [RC] 07/29/19 14:00 BASIC METABOLIC PANEL,BMP [CHEM] Routine Warfarin [Coumadin] 2 mg PO ONETIME ONE 07/29/19 21:00 atorvaSTATin [Lipitor] 40 mg PO BEDTIME 07/29/19 Breakfast Consistent Carbohydrate Diet [DIET] - Plan Plan:: This is a 89 y/o F who lives alone, has past medical history which is significant for hypertension, dyslipidemia, osteoarthritis, hypothyroidism, chronic back pain, valvular heart disease, and chronic kidney disease stage III with a baseline creatinine than ranged from 1.0 to 1.4 mg/dL. But after [place] and starting Diovan base line shifted to 2.0-2.4 mg/dl. She was last seen in renal clinic on 05/10/19 and then creatinine was at 1.9 mg/dl The patient is denying any use of NSAIDs or any other [id number] medications. Pt was admitted to hospital in 2014 with NSTEMI and got stented to to Proximal LAD and since then she has been doing well. Today she was brought into ED at [place] by daughter with swollen and red left lower leg and it is getting worse and hurts more, CXR of LE was done and negative for osteomyelitis. Pt is admitted for Cellulitis of Left LE Impression and Plan: 1. Left LE Cellulitis: The pt with history of Diabetes and has skin break with erythema and pain -Will continue her on Zosyn and Ceftriaxone -Will follow the B/C done in ER -Control pain and change dressing wet to dry daily 2. Hypertension: BP acceptable and will continue Metoprolol at 50 mg daily 3. Diabetes Ii: Newly diagnosed and on Glipizide at 2.5 mg daily 4. Edema of Extremities: will continue Furosemide at 40 mg daily and Metolazone at 2.5 mg every otherday 5. Dyslipidemia: continue statin DVT prophylaxis: on Coumadin , pharmacy to dose Code Status: Discussed with pt and she is Full Code
[2019-07-29] MEDS ORDERED: Warfarin 2 MG Tab PO ONE (14:00)
[2019-07-29 14:30] LABS: ANION GAP 9.9 mEq/L (7-13)
[2019-07-29] MEDS ORDERED: Metoprolol Tartrate 50 MG Tab PO SCH (17:00)
[2019-07-29] MEDS: atorvaSTATin 20 MG Tab PO SCH (21:08)
[2019-07-30] MEDS: cefTRIAXone 2 GM in Sodium Chloride 0.9% 100 ML IV SCH (01:02)
[2019-07-30] MEDS: Piperacillin/Tazobactam 2.25 GM in Sodium Chloride 0.9% 50 ML IV SCH ×3 (01:38→22:18)
[2019-07-30] MEDS: Acetaminophen 325 MG Tab PO PRN ×2 (03:56→12:13)
[2019-07-30] MEDS: Insulin Lispro 100 Units/ML 3 ML Vial SUBCUT SCH ×4 (07:49→23:21)
[2019-07-30] MEDS: Aspirin 81 MG Tab.EC PO SCH (08:13)
[2019-07-30] MEDS: Multivitamins,Therapeutic Tab PO SCH (08:14)
[2019-07-30] MEDS: Furosemide 40 MG Tab PO SCH (08:14)
[2019-07-30] MEDS: Potassium Chloride 10 MEQ Tab.ER PO SCH ×2 (08:14→17:12)
[2019-07-30] MEDS: Citalopram 20 MG Tab PO SCH (08:15)
[2019-07-30] MEDS: Metoprolol Tartrate 50 MG Tab PO SCH (08:15)
[2019-07-30] MEDS: glipiZIDE 2.5 MG Tab.ER PO SCH (08:16)
[2019-07-30] MEDS: Acetaminophen/oxyCODONE 325-5 MG Tab PO PRN ×2 (08:18→20:03)
--- NOTE | 2019-07-30 11:35 | PCM.PN ---
- General Info Date of Service: 07/30/19 Admission Dx/Problem (Free Text): Admission Diagnosis/Problem Admission Diagnosis/Problem Cellulitis Subjective Update: She is in good mood today, redness appears improving. - Review of Systems General: Reports: Weakness. Denies: Fever Pulmonary: Denies: Shortness of Breath Cardiovascular: Denies: Chest Pain Gastrointestinal: Denies: Abdominal Pain Neurological: Denies: Confusion - Patient Data Vitals - Most Recent: Last Vital Signs Temp 96.6 F L 07/30/19 07:34 Pulse 87 07/30/19 08:15 Resp 18 07/30/19 07:34 BP 135/79 07/30/19 08:15 Pulse Ox 95 07/30/19 07:34 Weight - Most Recent: 160 lb 12.8 oz I&O - Last 24 Hours: Intake & Output 07/29/19 07/30/19 07/30/19 22:59 06:59 14:59 Intake Total 267 300 Output Total 800 300 Balance 267 -500 -300 Lab Results Last 24 Hours: Laboratory Results - last 24 hr 07/29/19 07/29/19 07/29/19 Range/Units 11:46 14:05 17:00 PT (9.0-12.0) SEC INR (0.9-1.2) Sodium 140 (136-145) mmol/L Potassium 3.9 (3.5-5.1) mmol/L Chloride 100 (98-107) mmol/L Carbon Dioxide 34 H (21-32) mmol/L Anion Gap 9.9 (7-13) mEq/L BUN 54 H (7-18) mg/dL Creatinine 2.12 H (0.55-1.02) mg/dL Est Cr Clr Drug Dosing 15.46 mL/min Estimated GFR (MDRD) 22 Glucose 228 H (74-99) mg/dL POC Glucose 175 H 143 H (83-110) mg/dl Calcium 8.4 L (8.5-10.1) mg/dL 07/29/19 07/30/19 07/30/19 Range/Units 20:56 07:47 08:45 PT 36.7 H D (9.0-12.0) SEC INR 3.9 H (0.9-1.2) Sodium (136-145) mmol/L Potassium (3.5-5.1) mmol/L Chloride (98-107) mmol/L Carbon Dioxide (21-32) mmol/L Anion Gap (7-13) mEq/L BUN (7-18) mg/dL Creatinine (0.55-1.02) mg/dL Est Cr Clr Drug Dosing mL/min Estimated GFR (MDRD) Glucose (74-99) mg/dL POC Glucose 166 H 92 (83-110) mg/dl Calcium (8.5-10.1) mg/dL [facility] Results Last 24 Hours: Microbiology 07/28/19 21:16 Wound Culture - Preliminary Leg, Left 07/28/19 21:35 Aerobic Blood Culture - Preliminary Blood NO GROWTH AFTER 1 DAY Anaerobic Blood Culture - Final Med Orders - Current: Current Medications Acetaminophen (Tylenol) 650 mg PO Q4H PRN PRN Reason: Pain (mild 1-3 )/fever Last Admin: 07/30/19 03:56 Dose: 650 mg Aspirin (Halfprin) 81 mg PO DAILY [facility] Last Admin: 07/30/19 08:13 Dose: 81 mg Atorvastatin Calcium (Lipitor) 40 mg PO BEDTIME [facility] Last Admin: 07/29/19 21:08 Dose: 40 mg Citalopram Hydrobromide (Celexa) 20 mg PO DAILY [facility] Last Admin: 07/30/19 08:15 Dose: 20 mg Docusate Sodium (Colace) 100 mg PO DAILY PRN PRN Reason: Constipation Furosemide (Lasix) 40 mg PO DAILY [facility] Last Admin: 07/30/19 08:14 Dose: 40 mg Glipizide (Glucotrol Xl) 2.5 mg PO WITHBREAKFAST [facility] Last Admin: 07/30/19 08:16 Dose: 2.5 mg Piperacillin Sod/Tazobactam (Sod 2.25 gm/ Sodium Chloride) 50 mls @ 100 mls/hr IV Q8HR [facility] Insulin Human Lispro (Humalog) 0 unit SUBCUT WITHMEALSANDBED [facility]; Protocol Last Admin: 07/30/19 07:49 Dose: Not Given Metolazone (Zaroxolyn) 2.5 mg PO Q48H [facility] Last Admin: 07/29/19 09:48 Dose: 2.5 mg Metoprolol Tartrate (Lopressor) 100 mg PO DAILY [facility] Last Admin: 07/30/19 08:15 Dose: 100 mg Multivitamins (Thera) 1 each PO DAILY [facility] Last Admin: 07/30/19 08:14 Dose: 1 each No Warfarin (Today ) 0 each PO ONETIME ONE Stop: 07/30/19 14:01 Oxycodone/Acetaminophen (Percocet 325-5 Mg) 1 tab PO Q8H PRN PRN Reason: Pain (severe 7-10) Last Admin: 07/30/19 08:18 Dose: 1 tab Potassium Chloride (Klor-Con 10) 20 meq PO BIDMEALS [facility] Last Admin: 07/30/19 08:14 Dose: 20 meq Sodium Chloride (Saline Flush) 10 ml FLUSH ASDIRECTED PRN PRN Reason: Keep Vein Open Warfarin Sodium (Pharmacy To Dose - Warfarin) 1 dose .XX ASDIRECTED [facility] Discontinued Medications Hydrocodone Bitart/Acetaminophen ([place] 325-10 Mg) 1 tab PO ONETIME ONE Stop: 07/28/19 21:26 Last Admin: 07/28/19 21:38 Dose: 1 tab Diphenhydramine HCl (Benadryl) 50 mg PO ONETIME ONE Stop: 07/28/19 23:24 Last Admin: 07/28/19 23:26 Dose: 50 mg Clindamycin Phosphate 900 mg/ (Sodium Chloride) 106 mls @ 200 mls/hr IV ONETIME ONE Stop: 07/28/19 22:30 Last Admin: 07/28/19 22:15 Dose: 200 mls/hr Ceftriaxone Sodium 2 gm/ (Sodium Chloride) 100 mls @ 200 mls/hr IV Q24H [facility] Last Admin: 07/30/19 01:02 Dose: 200 mls/hr Piperacillin Sod/Tazobactam (Sod 3.375 gm/ Sodium Chloride) 100 mls @ 200 mls/ hr IV ONETIME ONE Stop: 07/29/19 01:44 Last Admin: 07/29/19 01:51 Dose: 200 mls/hr Piperacillin Sod/Tazobactam (Sod 2.25 gm/ Sodium Chloride) 50 mls @ 100 mls/hr IV Q8H [facility] Last Admin: 07/30/19 01:38 Dose: 100 mls/hr Ceftriaxone Sodium 2 gm/ (Sodium Chloride) 100 mls @ 200 mls/hr IV Q24H [facility] Warfarin Sodium (Coumadin) 2 mg PO DAILY [facility] Warfarin Sodium (Coumadin) 2 mg PO ONETIME ONE Stop: 07/29/19 14:01 Last Admin: 07/29/19 13:07 Dose: 2 mg - Exam General: Alert, Oriented Neck: Supple Lungs: Normal Respiratory Effort Cardiovascular: Regular Rate, Regular Rhythm, Murmurs GI/Abdominal Exam: Normal Bowel Sounds, Soft, Non-Tender Extremities: Pedal Edema (1+ bilateral) Skin: Warm (Bilateral lower extremities with venous dialysis discoloration, on the left leg there is area of erythema, superficial wounds) Neurological: No New Focal Deficit Psy/Mental Status: Alert, Normal Affect, Normal Mood Sepsis Event Note - Evaluation Sepsis Screening Result: No Definite Risk - Focused Exam Vital Signs: Vital Signs Temp Pulse Pulse Resp BP BP Pulse Ox 07/30/19 08:15 87 135/79 07/30/19 07:34 96.6 F L 87 18 135/79 95 Date Exam was Performed: 07/30/19 Time Exam was Performed: 11:31 - Problem List & Annotations (1) CKD (chronic kidney disease) stage 3, GFR 30-59 ml/min SNOMED Code(s): 525764140 Code(s): N18.3 - CHRONIC KIDNEY DISEASE, STAGE 3 (MODERATE) Status: Acute Current Visit: Yes (2) Atrial fibrillation SNOMED Code(s): 61154461 Code(s): I48.91 - UNSPECIFIED ATRIAL FIBRILLATION Status: Acute Current Visit: No Qualifiers: Atrial fibrillation type: unspecified Qualified Code(s): I48.91 - Unspecified atrial fibrillation (3) Cellulitis of leg, left SNOMED Code(s): 578436511 Code(s): L03.116 - CELLULITIS OF LEFT LOWER LIMB Status: Acute Current Visit: No (4) Congestive heart failure SNOMED Code(s): 98116481 Code(s): I50.9 - HEART FAILURE, UNSPECIFIED Status: Acute Current Visit: No Qualifiers: Qualified Code(s): I50.21 - Acute systolic (congestive) heart failure (5) Hypertension SNOMED Code(s): 93077347 Code(s): I10 - ESSENTIAL (PRIMARY) HYPERTENSION Status: Acute Current Visit: No Qualifiers: Hypertension type: unspecified secondary hypertension Qualified Code(s): I15.9 - Secondary hypertension, unspecified (6) Venous stasis dermatitis SNOMED Code(s): 89877394 Code(s): I87.2 - VENOUS INSUFFICIENCY (CHRONIC) (PERIPHERAL) Status: Acute Current Visit: No Qualifiers: Laterality: bilateral Qualified Code(s): I87.2 - Venous insufficiency ( chronic) (peripheral) - Problem List Review Problem List Initiated/Reviewed/Updated: Yes - My Orders Last 24 Hours: My Active Orders 07/30/19 11:29 OT Evaluation and Treatment [CONS] Routine PT Evaluation and Treatment [CONS] Routine 07/31/19 05:15 BASIC METABOLIC PANEL,BMP [CHEM] AM CBC WITH AUTO DIFF [HEME] AM - Plan Plan:: This is a 89 y/o F who lives alone, has past medical history which is significant for hypertension, dyslipidemia, osteoarthritis, hypothyroidism, chronic back pain, valvular heart disease, and chronic kidney disease stage III with a baseline creatinine than ranged from 1.0 to 1.4 mg/dL. But after [place] and starting Diovan base line shifted to 2.0-2.4 mg/dl. She was last seen in renal clinic on 05/10/19 and then creatinine was at 1.9 mg/dl The patient is denying any use of NSAIDs or any other [id number] medications. Pt was admitted to hospital in 2014 with NSTEMI and got stented to to Proximal LAD and since then she has been doing well. Today she was brought into ED at [place] by daughter with swollen and red left lower leg and it is getting worse and hurts more, CXR of LE was done and negative for osteomyelitis. Pt is admitted for Cellulitis of Left LE Impression and Plan: 1. Left LE Cellulitis: The pt with history of Diabetes and has skin break with erythema and pain -Will continue her on Zosyn and stop Ceftriaxone -Will follow the B/C done in ER -Control pain and use Xeroform dressing Control edema 2. Hypertension: BP acceptable and will continue Metoprolol at 50 mg daily 3. Diabetes Ii: Newly diagnosed and on Glipizide at 2.5 mg daily We will follow blood sugars and use supplemental insulin as needed 4. Edema of Extremities, chronic kidney disease stage III, history of CHF: will continue Furosemide at 40 mg daily and Metolazone at 2.5 mg every otherday 5. Dyslipidemia: continue statin 6. History of atrial fibrillation Rate controlled with metoprolol Coumadin for anticoagulation DVT prophylaxis: on Coumadin , pharmacy to dose
[2019-07-30] MEDS: atorvaSTATin 20 MG Tab PO SCH (22:17)
[2019-07-31] MEDS: Acetaminophen 325 MG Tab PO PRN (00:29)
[2019-07-31] MEDS: Acetaminophen/oxyCODONE 325-5 MG Tab PO PRN ×2 (04:09→20:40)
[2019-07-31] MEDS ORDERED: cefTRIAXone 2 GM in Sodium Chloride 0.9% 100 ML IV SCH (06:00)
[2019-07-31] MEDS: Piperacillin/Tazobactam 2.25 GM in Sodium Chloride 0.9% 50 ML IV SCH (06:15)
[2019-07-31 06:52] LABS: ANION GAP 12.5 mEq/L (7-13)
[2019-07-31] MEDS: Citalopram 20 MG Tab PO SCH (09:00)
[2019-07-31] MEDS: Aspirin 81 MG Tab.EC PO SCH (09:00)
[2019-07-31] MEDS: Furosemide 40 MG Tab PO SCH (09:00)
[2019-07-31] MEDS: Multivitamins,Therapeutic Tab PO SCH (09:00)
[2019-07-31] MEDS: Metoprolol Tartrate 50 MG Tab PO SCH (09:01)
[2019-07-31] MEDS: glipiZIDE 2.5 MG Tab.ER PO SCH (09:01)
[2019-07-31] MEDS: Potassium Chloride 10 MEQ Tab.ER PO SCH ×2 (09:02→17:40)
[2019-07-31] MEDS: Insulin Lispro 100 Units/ML 3 ML Vial SUBCUT SCH ×4 (09:02→22:00)
[2019-07-31] MEDS: Metolazone 2.5 MG Tab PO SCH (09:22)
--- NOTE | 2019-07-31 10:35 | PCM.PN ---
- General Info Date of Service: 07/31/19 Admission Dx/Problem (Free Text): Admission Diagnosis/Problem Admission Diagnosis/Problem Cellulitis Subjective Update: She is in good mood today, redness appears is still present. She is complaining that the pain is not well controlled. No associated fever or chills. There is improvement in the redness, minimal drainage, improved edema Functional Status: Reports: Tolerating Diet - Review of Systems General: Reports: Weakness. Denies: Fever Pulmonary: Denies: Shortness of Breath Cardiovascular: Denies: Chest Pain Gastrointestinal: Denies: Abdominal Pain - Patient Data Vitals - Most Recent: Last Vital Signs Temp 97.4 F 07/31/19 07:55 Pulse 77 07/31/19 09:01 Resp 18 07/31/19 07:55 BP 119/45 L 07/31/19 09:01 Pulse Ox 97 07/31/19 07:55 Weight - Most Recent: 160 lb 12.8 oz I&O - Last 24 Hours: Intake & Output 07/30/19 07/31/19 07/31/19 22:59 06:59 14:59 Intake Total 52 340 Balance 52 340 Lab Results Last 24 Hours: Laboratory Results - last 24 hr 07/30/19 07/30/19 07/30/19 Range/Units 11:53 17:00 21:06 WBC (5.0-10.0) 10^3/uL RBC (4.2-5.4) 10^6/uL Hgb (12.0-16.0) g/dL Hct (37.0-47.0) % MCV (80-100) fL MCH (27.0-34.0) pg MCHC (33.0-35.0) g/dL Plt Count (150-450) 10^3/uL Neut % (Auto) (42.2-75.2) % Lymph % (Auto) (20.5-50.1) % [place] % (Auto) (2-8) % Eos % (Auto) (1.0-3.0) % Baso % (Auto) (0.0-1.0) % PT (9.0-12.0) SEC INR (0.9-1.2) Sodium (136-145) mmol/L Potassium (3.5-5.1) mmol/L Chloride (98-107) mmol/L Carbon Dioxide (21-32) mmol/L Anion Gap (7-13) mEq/L BUN (7-18) mg/dL Creatinine (0.55-1.02) mg/dL Est Cr Clr Drug Dosing mL/min Estimated GFR (MDRD) Glucose (74-99) mg/dL POC Glucose 159 H 120 H 200 H (83-110) mg/dl Calcium (8.5-10.1) mg/dL 07/31/19 07/31/19 07/31/19 Range/Units 06:28 06:28 06:28 WBC 6.8 (5.0-10.0) 10^3/uL RBC 4.86 (4.2-5.4) 10^6/uL Hgb 13.0 (12.0-16.0) g/dL Hct 38.5 (37.0-47.0) % MCV 79.2 L (80-100) fL MCH 26.7 L (27.0-34.0) pg MCHC 33.8 (33.0-35.0) g/dL Plt Count 140 L (150-450) 10^3/uL Neut % (Auto) 64.0 (42.2-75.2) % Lymph % (Auto) 24.5 (20.5-50.1) % [place] % (Auto) 9.6 H (2-8) % Eos % (Auto) 1.6 (1.0-3.0) % Baso % (Auto) 0.3 (0.0-1.0) % PT 34.9 H (9.0-12.0) SEC INR 3.7 H (0.9-1.2) Sodium 142 (136-145) mmol/L Potassium 2.5 L (3.5-5.1) mmol/L Chloride 101 (98-107) mmol/L Carbon Dioxide 31 (21-32) mmol/L Anion Gap 12.5 (7-13) mEq/L BUN 51 H (7-18) mg/dL Creatinine 2.08 H (0.55-1.02) mg/dL Est Cr Clr Drug Dosing 15.76 mL/min Estimated GFR (MDRD) 23 Glucose 71 L (74-99) mg/dL POC Glucose (83-110) mg/dl Calcium 8.3 L (8.5-10.1) mg/dL 07/31/19 Range/Units 07:36 WBC (5.0-10.0) 10^3/uL RBC (4.2-5.4) 10^6/uL Hgb (12.0-16.0) g/dL Hct (37.0-47.0) % MCV (80-100) fL MCH (27.0-34.0) pg MCHC (33.0-35.0) g/dL Plt Count (150-450) 10^3/uL Neut % (Auto) (42.2-75.2) % Lymph % (Auto) (20.5-50.1) % [place] % (Auto) (2-8) % Eos % (Auto) (1.0-3.0) % Baso % (Auto) (0.0-1.0) % PT (9.0-12.0) SEC INR (0.9-1.2) Sodium (136-145) mmol/L Potassium (3.5-5.1) mmol/L Chloride (98-107) mmol/L Carbon Dioxide (21-32) mmol/L Anion Gap (7-13) mEq/L BUN (7-18) mg/dL Creatinine (0.55-1.02) mg/dL Est Cr Clr Drug Dosing mL/min Estimated GFR (MDRD) Glucose (74-99) mg/dL POC Glucose 69 L (83-110) mg/dl Calcium (8.5-10.1) mg/dL [place] Results Last 24 Hours: Microbiology 07/28/19 21:16 Wound Culture - Final Leg, Left (Mrsa) Staphylococcus Aureus 07/28/19 21:35 Aerobic Blood Culture - Preliminary Blood NO GROWTH AFTER 2 DAYS Anaerobic Blood Culture - Final Med Orders - Current: Current Medications Acetaminophen (Tylenol) 650 mg PO Q4H PRN PRN Reason: Pain (mild 1-3 )/fever Last Admin: 07/31/19 00:29 Dose: 650 mg Aspirin (Halfprin) 81 mg PO DAILY [facility] Last Admin: 07/31/19 09:00 Dose: 81 mg Atorvastatin Calcium (Lipitor) 40 mg PO BEDTIME [facility] Last Admin: 07/30/19 22:17 Dose: 40 mg Citalopram Hydrobromide (Celexa) 20 mg PO DAILY [facility] Last Admin: 07/31/19 09:00 Dose: 20 mg Docusate Sodium (Colace) 100 mg PO DAILY PRN PRN Reason: Constipation Furosemide (Lasix) 40 mg PO DAILY [facility] Last Admin: 07/31/19 09:00 Dose: 40 mg Glipizide (Glucotrol Xl) 2.5 mg PO WITHBREAKFAST [facility] Last Admin: 07/31/19 09:01 Dose: 2.5 mg Piperacillin Sod/Tazobactam (Sod 2.25 gm/ Sodium Chloride) 50 mls @ 100 mls/hr IV Q8HR [facility] Last Admin: 07/31/19 06:15 Dose: 100 mls/hr Vancomycin HCl 1 gm/ Premix 200 mls @ 133.333 mls/hr IV Q48H [facility] Last Admin: 07/31/19 10:03 Dose: 120 mls/hr Insulin Human Lispro (Humalog) 0 unit SUBCUT WITHMEALSANDBED [facility]; Protocol Last Admin: 07/31/19 09:02 Dose: Not Given Metolazone (Zaroxolyn) 2.5 mg PO Q48H [facility] Last Admin: 07/31/19 09:22 Dose: 2.5 mg Metoprolol Tartrate (Lopressor) 100 mg PO DAILY [facility] Last Admin: 07/31/19 09:01 Dose: 100 mg Multivitamins (Thera) 1 each PO DAILY [facility] Last Admin: 07/31/19 09:00 Dose: 1 each No Warfarin Dose (Today) 0 each PO ONETIME ONE Stop: 07/31/19 14:01 Oxycodone/Acetaminophen (Percocet 325-5 Mg) 1 tab PO Q8H PRN PRN Reason: Pain (severe 7-10) Last Admin: 07/31/19 04:09 Dose: 1 tab Potassium Chloride (Klor-Con 10) 40 meq PO ONETIME ONE Stop: 07/31/19 13:01 Potassium Chloride (Klor-Con 10) 40 meq PO BIDMEALS [facility] Sodium Chloride (Saline Flush) 10 ml FLUSH ASDIRECTED PRN PRN Reason: Keep Vein Open Vancomycin HCl (Pharmacy To Dose - Vancomycin) 0 dose .XX ASDIRECTED [facility] Warfarin Sodium (Pharmacy To Dose - Warfarin) 0 dose .XX ASDIRECTED [facility] Discontinued Medications Hydrocodone Bitart/Acetaminophen ([place] 325-10 Mg) 1 tab PO ONETIME ONE Stop: 07/28/19 21:26 Last Admin: 07/28/19 21:38 Dose: 1 tab Diphenhydramine HCl (Benadryl) 50 mg PO ONETIME ONE Stop: 07/28/19 23:24 Last Admin: 07/28/19 23:26 Dose: 50 mg Clindamycin Phosphate 900 mg/ (Sodium Chloride) 106 mls @ 200 mls/hr IV ONETIME ONE Stop: 07/28/19 22:30 Last Admin: 07/28/19 22:15 Dose: 200 mls/hr Ceftriaxone Sodium 2 gm/ (Sodium Chloride) 100 mls @ 200 mls/hr IV Q24H [facility] Last Admin: 07/30/19 01:02 Dose: 200 mls/hr Piperacillin Sod/Tazobactam (Sod 3.375 gm/ Sodium Chloride) 100 mls @ 200 mls/ hr IV ONETIME ONE Stop: 07/29/19 01:44 Last Admin: 07/29/19 01:51 Dose: 200 mls/hr Piperacillin Sod/Tazobactam (Sod 2.25 gm/ Sodium Chloride) 50 mls @ 100 mls/hr IV Q8H [facility] Last Admin: 07/30/19 01:38 Dose: 100 mls/hr Ceftriaxone Sodium 2 gm/ (Sodium Chloride) 100 mls @ 200 mls/hr IV Q24H [facility] No Warfarin (Today ) 0 each PO ONETIME ONE Stop: 07/30/19 14:01 Last Admin: 07/30/19 14:22 Dose: Not Given Potassium Chloride (Klor-Con 10) 20 meq PO BIDMEALS [facility] Last Admin: 07/31/19 09:02 Dose: 20 meq Warfarin Sodium (Coumadin) 2 mg PO DAILY [facility] Warfarin Sodium (Coumadin) 2 mg PO ONETIME ONE Stop: 07/29/19 14:01 Last Admin: 07/29/19 13:07 Dose: 2 mg - Exam General: Alert, Oriented Neck: Supple Lungs: Clear to Auscultation, Normal Respiratory Effort, Decreased Breath Sounds Cardiovascular: Regular Rate, Regular Rhythm GI/Abdominal Exam: Normal Bowel Sounds, Soft, Non-Tender Extremities: Pedal Edema (Trace bilateral lower extremity edema) Skin: Warm, Other (Left lower extremity with superficial ulcers, erythema still present, bilateral lower extremities with chronic venous dialysis changes) Sepsis Event Note - Evaluation Sepsis Screening Result: No Definite Risk - Focused Exam Vital Signs: Vital Signs Temp Pulse Pulse Resp BP BP Pulse Ox 07/31/19 09:01 77 119/45 L 07/31/19 07:55 97.4 F 77 18 119/45 L 97 07/31/19 04:00 97.8 F 73 20 114/46 L 100 07/31/19 01:00 98 Pulse Ox 07/31/19 09:01 07/31/19 07:55 07/31/19 04:00 07/31/19 01:00 98 Date Exam was Performed: 07/31/19 Time Exam was Performed: 10:32 - Problem List & Annotations (1) CKD (chronic kidney disease) stage 3, GFR 30-59 ml/min SNOMED Code(s): 538325355 Code(s): N18.3 - CHRONIC KIDNEY DISEASE, STAGE 3 (MODERATE) Status: Acute Current Visit: Yes (2) Atrial fibrillation SNOMED Code(s): 62370604 Code(s): I48.91 - UNSPECIFIED ATRIAL FIBRILLATION Status: Acute Current Visit: No Qualifiers: Atrial fibrillation type: unspecified Qualified Code(s): I48.91 - Unspecified atrial fibrillation (3) Cellulitis of leg, left SNOMED Code(s): 128510632 Code(s): L03.116 - CELLULITIS OF LEFT LOWER LIMB Status: Acute Current Visit: No (4) Congestive heart failure SNOMED Code(s): 45554046 Code(s): I50.9 - HEART FAILURE, UNSPECIFIED Status: Acute Current Visit: No Qualifiers: Qualified Code(s): I50.21 - Acute systolic (congestive) heart failure (5) Hypertension SNOMED Code(s): 34109766 Code(s): I10 - ESSENTIAL (PRIMARY) HYPERTENSION Status: Acute Current Visit: No Qualifiers: Hypertension type: unspecified secondary hypertension Qualified Code(s): I15.9 - Secondary hypertension, unspecified (6) Venous stasis dermatitis SNOMED Code(s): 07894929 Code(s): I87.2 - VENOUS INSUFFICIENCY (CHRONIC) (PERIPHERAL) Status: Acute Current Visit: No Qualifiers: Laterality: bilateral Qualified Code(s): I87.2 - Venous insufficiency ( chronic) (peripheral) - Problem List Review Problem List Initiated/Reviewed/Updated: Yes - My Orders Last 24 Hours: My Active Orders 07/30/19 11:29 OT Evaluation and Treatment [CONS] Routine PT Evaluation and Treatment [CONS] Routine 07/31/19 09:15 Pharmacy to Dose - Vancomycin 0 dose .XX ASDIRECTED 07/31/19 10:00 Vancomycin/Water for INJ (PEG) [Vancomycin 1 GM/200 ML Premix] 1 gm Premix Bag 1 bag IV Q48H 07/31/19 13:00 Potassium Chloride [Klor-Con 10] 40 meq PO ONETIME ONE 07/31/19 14:00 Non-Formulary Medication [NF Drug] 0 each PO ONETIME ONE 07/31/19 18:00 Potassium Chloride [Klor-Con 10] 40 meq PO BIDMEALS 08/06/19 09:30 VANCOMYCIN TROUGH [CHEM] Routine - Plan Plan:: This is a 89 y/o F who lives alone, has past medical history which is significant for hypertension, dyslipidemia, osteoarthritis, hypothyroidism, chronic back pain, valvular heart disease, and chronic kidney disease stage III with a baseline creatinine than ranged from 1.0 to 1.4 mg/dL. But after [place] and starting Diovan base line shifted to 2.0-2.4 mg/dl. She was last seen in renal clinic on 05/10/19 and then creatinine was at 1.9 mg/dl The patient is denying any use of NSAIDs or any other [id number] medications. Pt was admitted to hospital in 2014 with NSTEMI and got stented to to Proximal LAD and since then she has been doing well. Today she was brought into ED at [place] by daughter with swollen and red left lower leg and it is getting worse and hurts more, CXR of LE was done and negative for osteomyelitis. Pt is admitted for Cellulitis of Left LE Impression and Plan: 1. Left LE Cellulitis: The pt with history of Diabetes and has skin break with erythema and pain Wound culture grew MRSA -Will stop Zosyn and start vancomycin -Will follow the B/C done in ER -Control pain and use Xeroform dressing Control edema 2. Hypertension: BP acceptable and will continue Metoprolol at 50 mg daily 3. Diabetes Ii: Newly diagnosed and on Glipizide at 2.5 mg daily We will follow blood sugars and use supplemental insulin as needed 4. Edema of Extremities, chronic kidney disease stage III, history of CHF: will continue Furosemide at 40 mg daily and Metolazone at 2.5 mg every otherday Has severe hypokalemia We'll increase potassium supplement 5. Dyslipidemia: continue statin 6. History of atrial fibrillation Rate controlled with metoprolol Coumadin for anticoagulation DVT prophylaxis: on Coumadin , pharmacy to dose
[2019-07-31] MEDS ORDERED: Acetaminophen/oxyCODONE 325-5 MG Tab PO PRN (10:36)
[2019-07-31] MEDS ORDERED: Potassium Chloride 10 MEQ Tab.ER PO ONE (13:00)
[2019-07-31] MEDS ORDERED: [UNRECOGNIZED DRUG - REMARK] PO ONE (14:00)
[2019-07-31] MEDS: atorvaSTATin 20 MG Tab PO SCH (20:40)
[2019-08-01] MEDS: Acetaminophen/oxyCODONE 325-5 MG Tab PO PRN ×3 (05:28→20:33)
[2019-08-01] MEDS: Citalopram 20 MG Tab PO SCH (08:20)
[2019-08-01] MEDS: Multivitamins,Therapeutic Tab PO SCH (08:21)
[2019-08-01] MEDS: Aspirin 81 MG Tab.EC PO SCH (08:21)
[2019-08-01] MEDS: Furosemide 40 MG Tab PO SCH (08:21)
[2019-08-01] MEDS: Potassium Chloride 10 MEQ Tab.ER PO SCH ×2 (08:22→17:23)
[2019-08-01] MEDS: Metoprolol Tartrate 50 MG Tab PO SCH (08:22)
[2019-08-01] MEDS: glipiZIDE 2.5 MG Tab.ER PO SCH (08:23)
[2019-08-01 08:54] LABS: ANION GAP 13.9 mEq/L (7-13)
[2019-08-01] MEDS: Insulin Lispro 100 Units/ML 3 ML Vial SUBCUT SCH ×4 (09:07→21:43)
--- NOTE | 2019-08-01 12:08 | PCM.PN ---
- General Info Date of Service: 08/01/19 Subjective Update: This is a 89 y/o F who lives alone, has past medical history which is significant for NSTEMI s/p stent to Proximal LAD, hypertension, dyslipidemia, osteoarthritis, hypothyroidism, chronic back pain, valvular heart disease, and chronic kidney disease stage III with a baseline creatinine than ranged from 2.0 -2.4 mg/dl. She presented to the ED at [place] by daughter with tender swelling and redness to left lower leg. XR of LE was negative for osteomyelitis. Pt was admitted for Cellulitis of Left LE. Today the patient was seen and examined. She is doing fairly okay. Redness, swelling, and tenderness to left lower extremity is improved. No pus discharge noted. She denies fever, chills, nausea, vomiting. Labs reviewed. Left lower extremity wound culture was positive for MRSA. Functional Status: Reports: Pain Controlled - Review of Systems General: Reports: No Symptoms HEENT: Reports: No Symptoms Pulmonary: Reports: No Symptoms Cardiovascular: Reports: No Symptoms Gastrointestinal: Reports: No Symptoms Genitourinary: Reports: No Symptoms Musculoskeletal: Reports: No Symptoms Skin: Reports: No Symptoms Neurological: Reports: No Symptoms Psychiatric: Reports: No Symptoms - Patient Data Vitals - Most Recent: Last Vital Signs Temp 97.7 F 08/01/19 08:53 Pulse 77 08/01/19 08:53 Resp 18 08/01/19 08:53 BP 118/59 L 08/01/19 08:53 Pulse Ox 96 08/01/19 08:53 Weight - Most Recent: 160 lb 12.8 oz I&O - Last 24 Hours: Intake & Output 07/31/19 08/01/19 08/01/19 22:59 06:59 14:59 Intake Total 435 Balance 435 Lab Results Last 24 Hours: Laboratory Results - last 24 hr 07/31/19 07/31/19 07/31/19 Range/Units 11:44 17:01 21:05 WBC (5.0-10.0) 10^3/uL RBC (4.2-5.4) 10^6/uL Hgb (12.0-16.0) g/dL Hct (37.0-47.0) % MCV (80-100) fL MCH (27.0-34.0) pg MCHC (33.0-35.0) g/dL Plt Count (150-450) 10^3/uL Neut % (Auto) (42.2-75.2) % Lymph % (Auto) (20.5-50.1) % [place] % (Auto) (2-8) % Eos % (Auto) (1.0-3.0) % Baso % (Auto) (0.0-1.0) % PT (9.0-12.0) SEC INR (0.9-1.2) Sodium (136-145) mmol/L Potassium (3.5-5.1) mmol/L Chloride (98-107) mmol/L Carbon Dioxide (21-32) mmol/L Anion Gap (7-13) mEq/L BUN (7-18) mg/dL Creatinine (0.55-1.02) mg/dL Est Cr Clr Drug Dosing mL/min Estimated GFR (MDRD) Glucose (74-99) mg/dL POC Glucose 171 H 109 196 H (83-110) mg/dl Calcium (8.5-10.1) mg/dL 08/01/19 08/01/19 08/01/19 Range/Units 06:46 06:46 06:46 WBC 5.4 (5.0-10.0) 10^3/uL RBC 5.19 (4.2-5.4) 10^6/uL Hgb 13.7 (12.0-16.0) g/dL Hct 41.0 (37.0-47.0) % MCV 79.0 L (80-100) fL MCH 26.4 L (27.0-34.0) pg MCHC 33.4 (33.0-35.0) g/dL Plt Count 127 L (150-450) 10^3/uL Neut % (Auto) 61.8 (42.2-75.2) % Lymph % (Auto) 27.9 (20.5-50.1) % [place] % (Auto) 8.0 (2-8) % Eos % (Auto) 1.9 (1.0-3.0) % Baso % (Auto) 0.4 (0.0-1.0) % PT 33.2 H (9.0-12.0) SEC INR 3.5 H (0.9-1.2) Sodium 143 (136-145) mmol/L Potassium 2.9 L (3.5-5.1) mmol/L Chloride 101 (98-107) mmol/L Carbon Dioxide 31 (21-32) mmol/L Anion Gap 13.9 H (7-13) mEq/L BUN 53 H (7-18) mg/dL Creatinine 2.14 H (0.55-1.02) mg/dL Est Cr Clr Drug Dosing 15.32 mL/min Estimated GFR (MDRD) 22 Glucose 119 H (74-99) mg/dL POC Glucose (83-110) mg/dl Calcium 8.2 L (8.5-10.1) mg/dL 08/01/19 08/01/19 Range/Units 08:33 11:45 WBC (5.0-10.0) 10^3/uL RBC (4.2-5.4) 10^6/uL Hgb (12.0-16.0) g/dL Hct (37.0-47.0) % MCV (80-100) fL MCH (27.0-34.0) pg MCHC (33.0-35.0) g/dL Plt Count (150-450) 10^3/uL Neut % (Auto) (42.2-75.2) % Lymph % (Auto) (20.5-50.1) % [place] % (Auto) (2-8) % Eos % (Auto) (1.0-3.0) % Baso % (Auto) (0.0-1.0) % PT (9.0-12.0) SEC INR (0.9-1.2) Sodium (136-145) mmol/L Potassium (3.5-5.1) mmol/L Chloride (98-107) mmol/L Carbon Dioxide (21-32) mmol/L Anion Gap (7-13) mEq/L BUN (7-18) mg/dL Creatinine (0.55-1.02) mg/dL Est Cr Clr Drug Dosing mL/min Estimated GFR (MDRD) Glucose (74-99) mg/dL POC Glucose 117 H 228 H (83-110) mg/dl Calcium (8.5-10.1) mg/dL [facility] Results Last 24 Hours: Microbiology 07/28/19 21:35 Aerobic Blood Culture - Preliminary Blood NO GROWTH AFTER 3 DAYS Anaerobic Blood Culture - Final Med Orders - Current: Current Medications Acetaminophen (Tylenol) 650 mg PO Q4H PRN PRN Reason: Pain (mild 1-3 )/fever Last Admin: 07/31/19 00:29 Dose: 650 mg Aspirin (Halfprin) 81 mg PO DAILY [facility] Last Admin: 08/01/19 08:21 Dose: 81 mg Atorvastatin Calcium (Lipitor) 40 mg PO BEDTIME [facility] Last Admin: 07/31/19 20:40 Dose: 40 mg Citalopram Hydrobromide (Celexa) 20 mg PO DAILY [facility] Last Admin: 08/01/19 08:20 Dose: 20 mg Docusate Sodium (Colace) 100 mg PO DAILY PRN PRN Reason: Constipation Furosemide (Lasix) 40 mg PO DAILY [facility] Last Admin: 08/01/19 08:21 Dose: 40 mg Glipizide (Glucotrol Xl) 2.5 mg PO WITHBREAKFAST [facility] Last Admin: 08/01/19 08:23 Dose: 2.5 mg Vancomycin HCl 1 gm/ Premix 200 mls @ 133.333 mls/hr IV Q48H [facility] Last Infusion: 07/31/19 14:10 Dose: Infused Insulin Human Lispro (Humalog) 0 unit SUBCUT WITHMEALSANDBED [facility]; Protocol Last Admin: 08/01/19 09:07 Dose: Not Given Metolazone (Zaroxolyn) 2.5 mg PO Q48H [facility] Last Admin: 07/31/19 09:22 Dose: 2.5 mg Metoprolol Tartrate (Lopressor) 100 mg PO DAILY [facility] Last Admin: 08/01/19 08:22 Dose: 100 mg Multivitamins (Thera) 1 each PO DAILY [facility] Last Admin: 08/01/19 08:21 Dose: 1 each Oxycodone/Acetaminophen (Percocet 325-5 Mg) 1 tab PO Q4H PRN PRN Reason: Pain Last Admin: 08/01/19 10:45 Dose: 1 tab Potassium Chloride (Klor-Con 10) 40 meq PO BIDMEALS [facility] Last Admin: 08/01/19 08:22 Dose: 40 meq Sodium Chloride (Saline Flush) 10 ml FLUSH ASDIRECTED PRN PRN Reason: Keep Vein Open Last Admin: 08/01/19 08:34 Dose: 10 ml Vancomycin HCl (Pharmacy To Dose - Vancomycin) 0 dose .XX ASDIRECTED [facility] Warfarin Sodium (Pharmacy To Dose - Warfarin) 0 dose .XX ASDIRECTED [facility] Discontinued Medications Hydrocodone Bitart/Acetaminophen ([place] 325-10 Mg) 1 tab PO ONETIME ONE Stop: 07/28/19 21:26 Last Admin: 07/28/19 21:38 Dose: 1 tab Diphenhydramine HCl (Benadryl) 50 mg PO ONETIME ONE Stop: 07/28/19 23:24 Last Admin: 07/28/19 23:26 Dose: 50 mg Clindamycin Phosphate 900 mg/ (Sodium Chloride) 106 mls @ 200 mls/hr IV ONETIME ONE Stop: 07/28/19 22:30 Last Admin: 07/28/19 22:15 Dose: 200 mls/hr Ceftriaxone Sodium 2 gm/ (Sodium Chloride) 100 mls @ 200 mls/hr IV Q24H [facility] Last Admin: 07/30/19 01:02 Dose: 200 mls/hr Piperacillin Sod/Tazobactam (Sod 3.375 gm/ Sodium Chloride) 100 mls @ 200 mls/ hr IV ONETIME ONE Stop: 07/29/19 01:44 Last Admin: 07/29/19 01:51 Dose: 200 mls/hr Piperacillin Sod/Tazobactam (Sod 2.25 gm/ Sodium Chloride) 50 mls @ 100 mls/hr IV Q8H [facility] Last Admin: 07/30/19 01:38 Dose: 100 mls/hr Ceftriaxone Sodium 2 gm/ (Sodium Chloride) 100 mls @ 200 mls/hr IV Q24H [facility] Piperacillin Sod/Tazobactam (Sod 2.25 gm/ Sodium Chloride) 50 mls @ 100 mls/hr IV Q8HR [facility] Last Admin: 07/31/19 06:15 Dose: 100 mls/hr No Warfarin (Today ) 0 each PO ONETIME ONE Stop: 07/30/19 14:01 Last Admin: 07/30/19 14:22 Dose: Not Given No Warfarin Dose (Today) 0 each PO ONETIME ONE Stop: 07/31/19 14:01 Last Admin: 07/31/19 13:24 Dose: Not Given Oxycodone/Acetaminophen (Percocet 325-5 Mg) 1 tab PO Q8H PRN PRN Reason: Pain (severe 7-10) Last Admin: 07/31/19 04:09 Dose: 1 tab Oxycodone/Acetaminophen (Percocet 325-5 Mg) 1 tab PO Q6H PRN PRN Reason: Pain (severe 7-10) Last Admin: 07/31/19 12:25 Dose: 1 tab Potassium Chloride (Klor-Con 10) 20 meq PO BIDMEALS [facility] Last Admin: 07/31/19 09:02 Dose: 20 meq Potassium Chloride (Klor-Con 10) 40 meq PO ONETIME ONE Stop: 07/31/19 13:01 Last Admin: 07/31/19 12:25 Dose: 40 meq Warfarin Sodium (Coumadin) 2 mg PO DAILY [facility] Warfarin Sodium (Coumadin) 2 mg PO ONETIME ONE Stop: 07/29/19 14:01 Last Admin: 07/29/19 13:07 Dose: 2 mg - Exam Quality Assessment: DVT Prophylaxis General: Alert, Oriented HEENT: Pupils Equal, Pupils Reactive, EOMI, Mucous Membr. Moist/[place] Neck: Supple Lungs: Clear to Auscultation, Normal Respiratory Effort Cardiovascular: Regular Rate, Regular Rhythm GI/Abdominal Exam: Normal Bowel Sounds, Soft, Non-Tender, No Organomegaly, No Distention, No Abnormal Bruit, No Mass, Pelvis Stable (Female) Exam: Normal External Exam, Normal Speculum Exam, Normal Bimanual Exam Back Exam: Normal Inspection, Full Range of Motion Extremities: Normal Inspection, Normal Range of Motion, Non-Tender, No Pedal Edema, Normal Capillary Refill Skin: Warm, Dry, Intact Wound/Incisions: Healing Well Neurological: No New Focal Deficit Psy/Mental Status: Alert, Normal Affect, Normal Mood Sepsis Event Note - Evaluation Sepsis Screening Result: No Definite Risk - Focused Exam Vital Signs: Vital Signs Temp Pulse Pulse Resp BP BP Pulse Ox 08/01/19 08:53 97.7 F 77 18 118/59 L 96 08/01/19 08:22 77 118/59 L 08/01/19 01:00 95 Pulse Ox 08/01/19 08:53 08/01/19 08:22 08/01/19 01:00 95 Date Exam was Performed: 08/01/19 Time Exam was Performed: 12:13 - Problem List Review Problem List Initiated/Reviewed/Updated: Yes - Plan Plan:: 1. Left LE Cellulitis -Wound culture grew MRSA -History negative for osteomyelitis -Continue IV vancomycin -Follow blood cultures -Continue Xeroform dressing 2.Severe Hypokalemia -Replace IV 2. Hypertension -BP acceptable and will continue Metoprolol at 50 mg daily 3. Diabetes II -Continue Glipizide at 2.5 mg daily -SSI -Accu-cheks 4. Edema of Extremities, chronic kidney disease stage III, history of CHF -Continue Furosemide at 40 mg daily and Metolazone at 2.5 mg every otherday 5. Dyslipidemia -continue statin 5. Supratherapeutic INR due to Coumadin INR 3.5 No bleeding Adjust dose as per pharmacy 6. History of atrial fibrillation Rate controlled with metoprolol On Coumadin for anticoagulation. Phamacy dosing Daily INR DVT prophylaxis: on Coumadin , pharmacy to dose
[2019-08-01] MEDS: Potassium Chloride 10 MEQ in Premix Bag 1 BAG IV SCH ×4 (14:26→20:47)
[2019-08-01] MEDS: atorvaSTATin 20 MG Tab PO SCH (20:33)
[2019-08-02 07:35] LABS: ANION GAP 13.9 mEq/L (7-13)
[2019-08-02] MEDS: Furosemide 40 MG Tab PO SCH (08:26)
[2019-08-02] MEDS: Aspirin 81 MG Tab.EC PO SCH (08:26)
[2019-08-02] MEDS: Metoprolol Tartrate 50 MG Tab PO SCH (08:26)
[2019-08-02] MEDS: Potassium Chloride 10 MEQ Tab.ER PO SCH ×2 (08:26→17:49)
[2019-08-02] MEDS: Multivitamins,Therapeutic Tab PO SCH (08:26)
[2019-08-02] MEDS: glipiZIDE 2.5 MG Tab.ER PO SCH (08:26)
[2019-08-02] MEDS: Insulin Lispro 100 Units/ML 3 ML Vial SUBCUT SCH ×4 (08:26→21:23)
[2019-08-02] MEDS: Citalopram 20 MG Tab PO SCH (08:26)
[2019-08-02] MEDS ORDERED: Cyclobenzaprine 10 MG Tab PO PRN (09:05)
[2019-08-02] MEDS: Acetaminophen/oxyCODONE 325-5 MG Tab PO PRN ×2 (09:09→13:52)
[2019-08-02] MEDS: Metolazone 2.5 MG Tab PO SCH (10:10)
--- NOTE | 2019-08-02 12:03 | PCM.PN ---
- General Info Date of Service: 08/02/19 Admission Dx/Problem (Free Text): Admission Diagnosis/Problem Admission Diagnosis/Problem Cellulitis Subjective Update: This is a 89 y/o F who lives alone, has past medical history which is significant for NSTEMI s/p stent to Proximal LAD, hypertension, dyslipidemia, osteoarthritis, hypothyroidism, chronic back pain, valvular heart disease, and chronic kidney disease stage III with a baseline creatinine than ranged from 2.0 -2.4 mg/dl. She presented to the ED at [facility] by daughter with tender swelling and redness to left lower leg. XR of LE was negative for osteomyelitis. Pt was admitted for Cellulitis of Left LE. Today the patient was seen and examined with daughter by bedside. She is doing okay. Redness, swelling, and tenderness to left lower extremity is significantly improved. No pus discharge noted. She denies fever, chills, nausea , vomiting. Labs reviewed. Left lower extremity wound culture was positive for MRSA. Functional Status: Reports: Pain Controlled - Review of Systems General: Reports: No Symptoms HEENT: Reports: No Symptoms Pulmonary: Reports: No Symptoms Cardiovascular: Reports: No Symptoms Gastrointestinal: Reports: No Symptoms Genitourinary: Reports: No Symptoms Musculoskeletal: Reports: Other (LLE redness, swelling improved. ) Skin: Reports: No Symptoms Neurological: Reports: No Symptoms Psychiatric: Reports: No Symptoms - Patient Data Vitals - Most Recent: Last Vital Signs Temp 97.4 F 08/02/19 11:42 Pulse 61 08/02/19 11:42 Resp 18 08/02/19 11:42 BP 110/48 L 08/02/19 11:42 Pulse Ox 100 08/02/19 11:42 Weight - Most Recent: 160 lb 12.8 oz I&O - Last 24 Hours: Intake & Output 08/01/19 08/02/19 08/02/19 22:59 06:59 14:59 Intake Total 540 200 Balance 540 200 Lab Results Last 24 Hours: Laboratory Results - last 24 hr 08/01/19 08/01/19 08/01/19 Range/Units 11:45 16:52 20:43 WBC (5.0-10.0) 10^3/uL RBC (4.2-5.4) 10^6/uL Hgb (12.0-16.0) g/dL Hct (37.0-47.0) % MCV (80-100) fL MCH (27.0-34.0) pg MCHC (33.0-35.0) g/dL Plt Count (150-450) 10^3/uL PT (9.0-12.0) SEC INR (0.9-1.2) Sodium (136-145) mmol/L Potassium (3.5-5.1) mmol/L Chloride (98-107) mmol/L Carbon Dioxide (21-32) mmol/L Anion Gap (7-13) mEq/L BUN (7-18) mg/dL Creatinine (0.55-1.02) mg/dL Est Cr Clr Drug Dosing mL/min Estimated GFR (MDRD) Glucose (74-99) mg/dL POC Glucose 228 H 172 H 182 H (83-110) mg/dl Calcium (8.5-10.1) mg/dL 08/02/19 08/02/19 08/02/19 Range/Units 06:51 06:51 06:51 WBC 6.7 (5.0-10.0) 10^3/uL RBC 5.09 (4.2-5.4) 10^6/uL Hgb 13.4 (12.0-16.0) g/dL Hct 40.5 (37.0-47.0) % MCV 79.6 L (80-100) fL MCH 26.3 L (27.0-34.0) pg MCHC 33.1 (33.0-35.0) g/dL Plt Count 142 L (150-450) 10^3/uL PT 22.2 H D (9.0-12.0) SEC INR 2.4 H (0.9-1.2) Sodium 140 (136-145) mmol/L Potassium 3.9 (3.5-5.1) mmol/L Chloride 100 (98-107) mmol/L Carbon Dioxide 30 (21-32) mmol/L Anion Gap 13.9 H (7-13) mEq/L BUN 58 H (7-18) mg/dL Creatinine 2.00 H (0.55-1.02) mg/dL Est Cr Clr Drug Dosing 16.39 mL/min Estimated GFR (MDRD) 24 Glucose 119 H (74-99) mg/dL POC Glucose (83-110) mg/dl Calcium 8.3 L (8.5-10.1) mg/dL 08/02/19 Range/Units 07:57 WBC (5.0-10.0) 10^3/uL RBC (4.2-5.4) 10^6/uL Hgb (12.0-16.0) g/dL Hct (37.0-47.0) % MCV (80-100) fL MCH (27.0-34.0) pg MCHC (33.0-35.0) g/dL Plt Count (150-450) 10^3/uL PT (9.0-12.0) SEC INR (0.9-1.2) Sodium (136-145) mmol/L Potassium (3.5-5.1) mmol/L Chloride (98-107) mmol/L Carbon Dioxide (21-32) mmol/L Anion Gap (7-13) mEq/L BUN (7-18) mg/dL Creatinine (0.55-1.02) mg/dL Est Cr Clr Drug Dosing mL/min Estimated GFR (MDRD) Glucose (74-99) mg/dL POC Glucose 107 (83-110) mg/dl Calcium (8.5-10.1) mg/dL [place] Results Last 24 Hours: Microbiology 07/28/19 21:35 Aerobic Blood Culture - Preliminary Blood NO GROWTH AFTER 4 DAYS Anaerobic Blood Culture - Final Med Orders - Current: Current Medications Acetaminophen (Tylenol) 650 mg PO Q4H PRN PRN Reason: Pain (mild 1-3 )/fever Last Admin: 07/31/19 00:29 Dose: 650 mg Aspirin (Halfprin) 81 mg PO DAILY [facility] Last Admin: 08/02/19 08:26 Dose: 81 mg Atorvastatin Calcium (Lipitor) 40 mg PO BEDTIME [facility] Last Admin: 08/01/19 20:33 Dose: 40 mg Citalopram Hydrobromide (Celexa) 20 mg PO DAILY [facility] Last Admin: 08/02/19 08:26 Dose: 20 mg Cyclobenzaprine HCl (Flexeril) 10 mg PO BID PRN PRN Reason: Spasms Docusate Sodium (Colace) 100 mg PO DAILY PRN PRN Reason: Constipation Furosemide (Lasix) 40 mg PO DAILY [facility] Last Admin: 08/02/19 08:26 Dose: 40 mg Glipizide (Glucotrol Xl) 2.5 mg PO WITHBREAKFAST [facility] Last Admin: 08/02/19 08:26 Dose: 2.5 mg Vancomycin HCl 1 gm/ Premix 200 mls @ 133.333 mls/hr IV Q48H [facility] Last Infusion: 08/02/19 11:29 Dose: 75 mls/hr Insulin Human Lispro (Humalog) 0 unit SUBCUT WITHMEALSANDBED [facility]; Protocol Last Admin: 08/02/19 08:26 Dose: Not Given Metolazone (Zaroxolyn) 2.5 mg PO Q48H [facility] Last Admin: 08/02/19 10:10 Dose: 2.5 mg Metoprolol Tartrate (Lopressor) 100 mg PO DAILY [facility] Last Admin: 08/02/19 08:26 Dose: 100 mg Multivitamins (Thera) 1 each PO DAILY [facility] Last Admin: 08/02/19 08:26 Dose: 1 each Oxycodone/Acetaminophen (Percocet 325-5 Mg) 1 tab PO Q4H PRN PRN Reason: Pain Last Admin: 08/02/19 09:09 Dose: 1 tab Potassium Chloride (Klor-Con 10) 40 meq PO BIDMEALS [facility] Last Admin: 08/02/19 08:26 Dose: 40 meq Sodium Chloride (Saline Flush) 10 ml FLUSH ASDIRECTED PRN PRN Reason: Keep Vein Open Last Admin: 08/01/19 08:34 Dose: 10 ml Vancomycin HCl (Pharmacy To Dose - Vancomycin) 0 dose .XX ASDIRECTED [facility] Warfarin Sodium (Pharmacy To Dose - Warfarin) 0 dose .XX ASDIRECTED [facility] Warfarin Sodium (Coumadin) 1 mg PO ONETIME ONE Stop: 08/02/19 14:01 Discontinued Medications Hydrocodone Bitart/Acetaminophen ([place] 325-10 Mg) 1 tab PO ONETIME ONE Stop: 07/28/19 21:26 Last Admin: 07/28/19 21:38 Dose: 1 tab Diphenhydramine HCl (Benadryl) 50 mg PO ONETIME ONE Stop: 07/28/19 23:24 Last Admin: 07/28/19 23:26 Dose: 50 mg Clindamycin Phosphate 900 mg/ (Sodium Chloride) 106 mls @ 200 mls/hr IV ONETIME ONE Stop: 07/28/19 22:30 Last Admin: 07/28/19 22:15 Dose: 200 mls/hr Ceftriaxone Sodium 2 gm/ (Sodium Chloride) 100 mls @ 200 mls/hr IV Q24H [facility] Last Admin: 07/30/19 01:02 Dose: 200 mls/hr Piperacillin Sod/Tazobactam (Sod 3.375 gm/ Sodium Chloride) 100 mls @ 200 mls/ hr IV ONETIME ONE Stop: 07/29/19 01:44 Last Admin: 07/29/19 01:51 Dose: 200 mls/hr Piperacillin Sod/Tazobactam (Sod 2.25 gm/ Sodium Chloride) 50 mls @ 100 mls/hr IV Q8H [facility] Last Admin: 07/30/19 01:38 Dose: 100 mls/hr Ceftriaxone Sodium 2 gm/ (Sodium Chloride) 100 mls @ 200 mls/hr IV Q24H [facility] Piperacillin Sod/Tazobactam (Sod 2.25 gm/ Sodium Chloride) 50 mls @ 100 mls/hr IV Q8HR [facility] Last Admin: 07/31/19 06:15 Dose: 100 mls/hr Potassium Chloride 10 meq/ (Premix) 100 mls @ 100 mls/hr IV Q2H [facility] Stop: 08/01/19 20:59 Last Admin: 08/01/19 20:47 Dose: 100 mls/hr No Warfarin (Today ) 0 each PO ONETIME ONE Stop: 07/30/19 14:01 Last Admin: 07/30/19 14:22 Dose: Not Given No Warfarin Dose (Today) 0 each PO ONETIME ONE Stop: 07/31/19 14:01 Last Admin: 07/31/19 13:24 Dose: Not Given No Warfarin (Today ) 0 each PO ONETIME ONE Stop: 08/01/19 14:01 Last Admin: 08/01/19 15:35 Dose: Not Given Oxycodone/Acetaminophen (Percocet 325-5 Mg) 1 tab PO Q8H PRN PRN Reason: Pain (severe 7-10) Last Admin: 07/31/19 04:09 Dose: 1 tab Oxycodone/Acetaminophen (Percocet 325-5 Mg) 1 tab PO Q6H PRN PRN Reason: Pain (severe 7-10) Last Admin: 07/31/19 12:25 Dose: 1 tab Potassium Chloride (Klor-Con 10) 20 meq PO BIDMEALS [facility] Last Admin: 07/31/19 09:02 Dose: 20 meq Potassium Chloride (Klor-Con 10) 40 meq PO ONETIME ONE Stop: 07/31/19 13:01 Last Admin: 07/31/19 12:25 Dose: 40 meq Warfarin Sodium (Coumadin) 2 mg PO DAILY [facility] Warfarin Sodium (Coumadin) 2 mg PO ONETIME ONE Stop: 07/29/19 14:01 Last Admin: 07/29/19 13:07 Dose: 2 mg - Exam Quality Assessment: DVT Prophylaxis General: Alert, Oriented HEENT: Pupils Equal, Pupils Reactive, EOMI, Mucous Membr. Moist/[place] Neck: Supple Lungs: Clear to Auscultation, Normal Respiratory Effort Cardiovascular: Regular Rate, Regular Rhythm GI/Abdominal Exam: Normal Bowel Sounds, Soft, Non-Tender, No Organomegaly, No Distention, No Abnormal Bruit, No Mass, Pelvis Stable (Female) Exam: Normal External Exam, Normal Speculum Exam, Normal Bimanual Exam Back Exam: Normal Inspection, Full Range of Motion Extremities: Normal Inspection, Normal Range of Motion, Non-Tender, No Pedal Edema, Normal Capillary Refill, Other (LLE redness, swelling, pain improved. No discharge noted) Skin: Warm, Dry, Intact Wound/Incisions: Healing Well Neurological: No New Focal Deficit Psy/Mental Status: Alert, Normal Affect, Normal Mood Sepsis Event Note - Evaluation Sepsis Screening Result: No Definite Risk - Focused Exam Vital Signs: Vital Signs Temp Pulse Pulse Resp BP BP Pulse Ox 08/02/19 11:42 97.4 F 61 18 110/48 L 100 08/02/19 08:26 70 125/71 08/02/19 07:50 96.9 F 70 16 125/71 94 L 08/02/19 01:00 94 L Pulse Ox 08/02/19 11:42 08/02/19 08:26 08/02/19 07:50 08/02/19 01:00 94 L Date Exam was Performed: 08/02/19 Time Exam was Performed: 11:59 - Problem List Review Problem List Initiated/Reviewed/Updated: Yes - My Orders Last 24 Hours: My Active Orders 08/01/19 12:18 Telemetry Monitoring [Cardiac Monitoring] [RC] 08,20 03/26/20 09:05 Cyclobenzaprine [Flexeril] 10 mg PO BID PRN 08/02/19 14:00 Warfarin [Coumadin] 1 mg PO ONETIME ONE 08/03/19 07:00 BASIC METABOLIC PANEL,BMP [CHEM] DAILY CBC W/O DIFF,HEMOGRAM [HEME] DAILY INR,PT,PROTHROMBIN TIME [COAG] DAILY 08/04/19 07:00 BASIC METABOLIC PANEL,BMP [CHEM] DAILY CBC W/O DIFF,HEMOGRAM [HEME] DAILY INR,PT,PROTHROMBIN TIME [COAG] DAILY 08/05/19 07:00 BASIC METABOLIC PANEL,BMP [CHEM] DAILY CBC W/O DIFF,HEMOGRAM [HEME] DAILY INR,PT,PROTHROMBIN TIME [COAG] DAILY 08/06/19 07:00 BASIC METABOLIC PANEL,BMP [CHEM] DAILY CBC W/O DIFF,HEMOGRAM [HEME] DAILY INR,PT,PROTHROMBIN TIME [COAG] DAILY 08/07/19 07:00 BASIC METABOLIC PANEL,BMP [CHEM] DAILY INR,PT,PROTHROMBIN TIME [COAG] DAILY 08/08/19 07:00 INR,PT,PROTHROMBIN TIME [COAG] DAILY - Plan Plan:: 1. Left LE Cellulitis -Wound culture grew MRSA -X-ray negative for osteomyelitis -Continue IV vancomycin -Blood cultures in process -Continue Xeroform dressing 2.Severe Hypokalemia -Resolved 2. Hypertension -BP within acceptable limits. Continue Metoprolol at 50 mg daily 3. Diabetes II -Continue Glipizide at 2.5 mg daily -SSI -Accu-cheks 4. Edema of Extremities, chronic kidney disease stage III, history of CHF -Continue Furosemide at 40 mg daily and Metolazone at 2.5 mg every other day 5. Dyslipidemia -continue statin 5. Supratherapeutic INR due to Coumadin INR 3.5 No bleeding Adjust dose as per pharmacy 6. History of atrial fibrillation Rate controlled with metoprolol On Coumadin for anticoagulation. Phamacy dosing Daily INR DVT prophylaxis: on Coumadin , pharmacy to dose
[2019-08-02] MEDS: atorvaSTATin 20 MG Tab PO SCH (20:24)
[2019-08-03] MEDS: Acetaminophen/oxyCODONE 325-5 MG Tab PO PRN ×3 (00:38→13:05)
[2019-08-03 07:32] LABS: ANION GAP 12.8 mEq/L (7-13)
[2019-08-03] MEDS: Insulin Lispro 100 Units/ML 3 ML Vial SUBCUT SCH ×2 (08:05→12:13)
[2019-08-03] MEDS: Potassium Chloride 10 MEQ Tab.ER PO SCH (08:20)
[2019-08-03] MEDS: glipiZIDE 2.5 MG Tab.ER PO SCH (08:21)
[2019-08-03] MEDS: Metoprolol Tartrate 50 MG Tab PO SCH (08:22)
[2019-08-03] MEDS: Furosemide 40 MG Tab PO SCH (08:23)
[2019-08-03] MEDS: Multivitamins,Therapeutic Tab PO SCH (08:23)
[2019-08-03] MEDS: Citalopram 20 MG Tab PO SCH (08:23)
[2019-08-03] MEDS: Aspirin 81 MG Tab.EC PO SCH (08:23)
[2019-08-03 08:24] VITALS: BP 121/60; PULSE 60
--- NOTE | 2019-08-03 11:34 | PCM.DCSUM1 ---
Discharge Summary - Hospital Course Free Text/Narrative:: This is a 89 y/o F who lives alone, has past medical history which is significant for NSTEMI s/p stent to Proximal LAD, hypertension, dyslipidemia, osteoarthritis, hypothyroidism, chronic back pain, valvular heart disease, and chronic kidney disease stage III with a baseline creatinine than ranged from 2.0 -2.4 mg/dl. She presented to the ED at [place] by daughter with tender swelling and redness to left lower leg. XR of LE was negative for osteomyelitis. Pt was admitted for Cellulitis of Left LE. Wound culture was positive for MRSA. Patient was managed with IV vancomycin. She responded to treatment. Her viral symptoms improved. Redness, swelling, tenderness to the left lower extremity improved. She will discharge on Zyvox in stable condition with plan to follow up with PCP, wound care and ID Diagnosis: Stroke: No - Discharge Data Discharge Date: 08/03/19 Discharge Disposition: Home, Self-Care 01 Condition: Good - Referral to Home Health Primary Care Physician: Florida Jackson NP - Patient Summary/Data Consults: Consultations 07/30/19 11:29 OT Evaluation and Treatment [CONS] Routine PT Evaluation and Treatment [CONS] Routine - Patient Instructions Diet: Heart Healthy Diet Activity: As Tolerated Notify Provider of: Fever, Increased Pain, Swelling and Redness, Nausea and/or Vomiting - Discharge Plan *PRESCRIPTION DRUG MONITORING PROGRAM REVIEWED*: Yes *COPY OF PRESCRIPTION DRUG MONITORING REPORT IN PATIENT DEB: Yes Prescriptions/Med Rec: Acetaminophen/oxyCODONE [Percocet 325-5 MG] 1 tab PO Q6HR PRN 3 Days #10 tablet PRN Reason: Pain Linezolid [Zyvox] 600 mg PO Q12H 10 Days #20 tab Home Medications: Home Meds Acetaminophen [Pain & Fever] 500 mg PO ASDIRECTED PRN 09/28/13 [History] Loratadine [Claritin RediTabs] 5 mg PO DAILY PRN 09/28/13 [History] Multivitamin [Multi-Vitamin Daily] 1 each PO DAILY 09/28/13 [History] Warfarin [Coumadin] 2 mg PO DAILY 09/28/13 [History] Ca Carb & Gluc/Mag Ox & Gluc [Calcium Magnesium Caplet] 1 tab PO DAILY 02/20/15 [History] Calcium Carbonate/Vitamin D3 [Oyster Shell Calcium-Vit D Tab] 1 each PO DAILY [History] Citalopram Hydrobromide [Citalopram HBr] 20 mg PO DAILY 04/04/16 [History] Aspirin [Ecotrin EC] 81 mg PO DAILY 08/21/16 [History] Furosemide [Lasix] 40 mg PO DAILY 08/21/16 [History] Metolazone [Zaroxolyn] 2.5 mg PO .Q48H 08/21/16 [History] Metoprolol Tartrate 50 mg PO DAILY 08/21/16 [History] Metoprolol Tartrate 100 mg PO ACDINNER 08/21/16 [History] atorvaSTATin [Lipitor] 40 mg PO BEDTIME 08/21/16 [History] glipiZIDE [Glucotrol XL] 2.5 mg PO DAILY@0800 #30 tab.er 08/23/16 [Rx] Potassium Chloride [Klor-Con 10] 20 meq PO BIDAC 07/29/19 [History] Acetaminophen/oxyCODONE [Percocet 325-5 MG] 1 tab PO Q6HR PRN 3 Days #10 tablet 08/03/19 [Rx] Linezolid [Zyvox] 600 mg PO Q12H 10 Days #20 tab 08/03/19 [Rx] Oxygen Therapy Mode: Room Air Patient Handouts: Cellulitis, Adult, [id number] Referrals: Florida Jackson NP [Primary Care Provider] - - Discharge Summary/Plan Comment DC Time >30 min.: Yes Discharge Summary/Plan Comment: Complete antibiotics - General Info Date of Service: 08/03/19 Admission Dx/Problem (Free Text: Admission Diagnosis/Problem Admission Diagnosis/Problem Cellulitis Functional Status: Reports: Pain Controlled - Review of Systems General: Reports: No Symptoms HEENT: Reports: No Symptoms Pulmonary: Reports: No Symptoms Cardiovascular: Reports: No Symptoms Gastrointestinal: Reports: No Symptoms Genitourinary: Reports: No Symptoms Musculoskeletal: Reports: No Symptoms Skin: Reports: No Symptoms Neurological: Reports: No Symptoms Psychiatric: Reports: No Symptoms - Patient Data Vitals - Most Recent: Last Vital Signs Temp 97.4 F 08/03/19 07:53 Pulse 60 08/03/19 08:22 Resp 20 08/03/19 07:53 BP 121/60 08/03/19 08:22 Pulse Ox 100 08/03/19 07:53 Weight - Most Recent: 160 lb 12.8 oz I&O - Last 24 hours: Intake & Output 08/02/19 08/03/19 08/03/19 22:59 06:59 14:59 Intake Total 600 Balance 600 Lab Results - Last 24 hrs: Laboratory Results - last 24 hr 08/02/19 08/02/19 08/02/19 Range/Units 11:46 16:58 21:04 WBC (5.0-10.0) 10^3/uL RBC (4.2-5.4) 10^6/uL Hgb (12.0-16.0) g/dL Hct (37.0-47.0) % MCV (80-100) fL MCH (27.0-34.0) pg MCHC (33.0-35.0) g/dL Plt Count (150-450) 10^3/uL PT (9.0-12.0) SEC INR (0.9-1.2) Sodium (136-145) mmol/L Potassium (3.5-5.1) mmol/L Chloride (98-107) mmol/L Carbon Dioxide (21-32) mmol/L Anion Gap (7-13) mEq/L BUN (7-18) mg/dL Creatinine (0.55-1.02) mg/dL Est Cr Clr Drug Dosing mL/min Estimated GFR (MDRD) Glucose (74-99) mg/dL POC Glucose 179 H 132 H 176 H (83-110) mg/dl Calcium (8.5-10.1) mg/dL 08/03/19 08/03/19 08/03/19 Range/Units 06:25 06:25 06:25 WBC 6.7 (5.0-10.0) 10^3/uL RBC 5.16 (4.2-5.4) 10^6/uL Hgb 13.6 (12.0-16.0) g/dL Hct 41.1 (37.0-47.0) % MCV 79.7 L (80-100) fL MCH 26.4 L (27.0-34.0) pg MCHC 33.1 (33.0-35.0) g/dL Plt Count 150 (150-450) 10^3/uL PT 19.0 H (9.0-12.0) SEC INR 2.0 H (0.9-1.2) Sodium 141 (136-145) mmol/L Potassium 3.8 (3.5-5.1) mmol/L Chloride 102 (98-107) mmol/L Carbon Dioxide 30 (21-32) mmol/L Anion Gap 12.8 (7-13) mEq/L BUN 68 H (7-18) mg/dL Creatinine 2.02 H (0.55-1.02) mg/dL Est Cr Clr Drug Dosing 16.23 mL/min Estimated GFR (MDRD) 23 Glucose 111 H (74-99) mg/dL POC Glucose (83-110) mg/dl Calcium 8.2 L (8.5-10.1) mg/dL 08/03/19 Range/Units 07:59 WBC (5.0-10.0) 10^3/uL RBC (4.2-5.4) 10^6/uL Hgb (12.0-16.0) g/dL Hct (37.0-47.0) % MCV (80-100) fL MCH (27.0-34.0) pg MCHC (33.0-35.0) g/dL Plt Count (150-450) 10^3/uL PT (9.0-12.0) SEC INR (0.9-1.2) Sodium (136-145) mmol/L Potassium (3.5-5.1) mmol/L Chloride (98-107) mmol/L Carbon Dioxide (21-32) mmol/L Anion Gap (7-13) mEq/L BUN (7-18) mg/dL Creatinine (0.55-1.02) mg/dL Est Cr Clr Drug Dosing mL/min Estimated GFR (MDRD) Glucose (74-99) mg/dL POC Glucose 104 (83-110) mg/dl Calcium (8.5-10.1) mg/dL [facility] Results - Last 24 hrs: Microbiology 07/28/19 21:35 Aerobic Blood Culture - Final Blood NO GROWTH AFTER 5 DAYS Anaerobic Blood Culture - Final Med Orders - Current: Current Medications Acetaminophen (Tylenol) 650 mg PO Q4H PRN PRN Reason: Pain (mild 1-3 )/fever Last Admin: 07/31/19 00:29 Dose: 650 mg Aspirin (Halfprin) 81 mg PO DAILY [facility] Last Admin: 08/03/19 08:23 Dose: 81 mg Atorvastatin Calcium (Lipitor) 40 mg PO BEDTIME [facility] Last Admin: 08/02/19 20:24 Dose: 40 mg Citalopram Hydrobromide (Celexa) 20 mg PO DAILY [facility] Last Admin: 08/03/19 08:23 Dose: 20 mg Cyclobenzaprine HCl (Flexeril) 10 mg PO BID PRN PRN Reason: Spasms Docusate Sodium (Colace) 100 mg PO DAILY PRN PRN Reason: Constipation Furosemide (Lasix) 40 mg PO DAILY [facility] Last Admin: 08/03/19 08:23 Dose: 40 mg Glipizide (Glucotrol Xl) 2.5 mg PO WITHBREAKFAST [facility] Last Admin: 08/03/19 08:21 Dose: 2.5 mg Vancomycin HCl 1 gm/ Premix 200 mls @ 133.333 mls/hr IV Q48H [facility] Last Infusion: 08/02/19 11:29 Dose: 75 mls/hr Insulin Human Lispro (Humalog) 0 unit SUBCUT WITHMEALSANDBED [facility]; Protocol Last Admin: 08/03/19 08:05 Dose: Not Given Metolazone (Zaroxolyn) 2.5 mg PO Q48H [facility] Last Admin: 08/02/19 10:10 Dose: 2.5 mg Metoprolol Tartrate (Lopressor) 100 mg PO DAILY [facility] Last Admin: 08/03/19 08:22 Dose: 100 mg Multivitamins (Thera) 1 each PO DAILY [facility] Last Admin: 08/03/19 08:23 Dose: 1 each Oxycodone/Acetaminophen (Percocet 325-5 Mg) 1 tab PO Q4H PRN PRN Reason: Pain Last Admin: 08/03/19 08:21 Dose: 1 tab Potassium Chloride (Klor-Con 10) 40 meq PO BIDMEALS [facility] Last Admin: 08/03/19 08:20 Dose: 40 meq Sodium Chloride (Saline Flush) 10 ml FLUSH ASDIRECTED PRN PRN Reason: Keep Vein Open Last Admin: 08/01/19 08:34 Dose: 10 ml Vancomycin HCl (Pharmacy To Dose - Vancomycin) 0 dose .XX ASDIRECTED [facility] Warfarin Sodium (Pharmacy To Dose - Warfarin) 0 dose .XX ASDIRECTED [facility] Warfarin Sodium (Coumadin) 1 mg PO ONETIME ONE Stop: 08/03/19 14:01 Discontinued Medications Hydrocodone Bitart/Acetaminophen ([place] 325-10 Mg) 1 tab PO ONETIME ONE Stop: 07/28/19 21:26 Last Admin: 07/28/19 21:38 Dose: 1 tab Diphenhydramine HCl (Benadryl) 50 mg PO ONETIME ONE Stop: 07/28/19 23:24 Last Admin: 07/28/19 23:26 Dose: 50 mg Clindamycin Phosphate 900 mg/ (Sodium Chloride) 106 mls @ 200 mls/hr IV ONETIME ONE Stop: 07/28/19 22:30 Last Admin: 07/28/19 22:15 Dose: 200 mls/hr Ceftriaxone Sodium 2 gm/ (Sodium Chloride) 100 mls @ 200 mls/hr IV Q24H [facility] Last Admin: 07/30/19 01:02 Dose: 200 mls/hr Piperacillin Sod/Tazobactam (Sod 3.375 gm/ Sodium Chloride) 100 mls @ 200 mls/ hr IV ONETIME ONE Stop: 07/29/19 01:44 Last Admin: 07/29/19 01:51 Dose: 200 mls/hr Piperacillin Sod/Tazobactam (Sod 2.25 gm/ Sodium Chloride) 50 mls @ 100 mls/hr IV Q8H [facility] Last Admin: 07/30/19 01:38 Dose: 100 mls/hr Ceftriaxone Sodium 2 gm/ (Sodium Chloride) 100 mls @ 200 mls/hr IV Q24H [facility] Piperacillin Sod/Tazobactam (Sod 2.25 gm/ Sodium Chloride) 50 mls @ 100 mls/hr IV Q8HR [facility] Last Admin: 07/31/19 06:15 Dose: 100 mls/hr Potassium Chloride 10 meq/ (Premix) 100 mls @ 100 mls/hr IV Q2H [facility] Stop: 08/01/19 20:59 Last Admin: 08/01/19 20:47 Dose: 100 mls/hr No Warfarin (Today ) 0 each PO ONETIME ONE Stop: 07/30/19 14:01 Last Admin: 07/30/19 14:22 Dose: Not Given No Warfarin Dose (Today) 0 each PO ONETIME ONE Stop: 07/31/19 14:01 Last Admin: 07/31/19 13:24 Dose: Not Given No Warfarin (Today ) 0 each PO ONETIME ONE Stop: 08/01/19 14:01 Last Admin: 08/01/19 15:35 Dose: Not Given Oxycodone/Acetaminophen (Percocet 325-5 Mg) 1 tab PO Q8H PRN PRN Reason: Pain (severe 7-10) Last Admin: 07/31/19 04:09 Dose: 1 tab Oxycodone/Acetaminophen (Percocet 325-5 Mg) 1 tab PO Q6H PRN PRN Reason: Pain (severe 7-10) Last Admin: 07/31/19 12:25 Dose: 1 tab Potassium Chloride (Klor-Con 10) 20 meq PO BIDMEALS [facility] Last Admin: 07/31/19 09:02 Dose: 20 meq Potassium Chloride (Klor-Con 10) 40 meq PO ONETIME ONE Stop: 07/31/19 13:01 Last Admin: 07/31/19 12:25 Dose: 40 meq Warfarin Sodium (Coumadin) 2 mg PO DAILY [facility] Warfarin Sodium (Coumadin) 2 mg PO ONETIME ONE Stop: 07/29/19 14:01 Last Admin: 07/29/19 13:07 Dose: 2 mg Warfarin Sodium (Coumadin) 1 mg PO ONETIME ONE Stop: 08/02/19 14:01 Last Admin: 08/02/19 13:52 Dose: 1 mg - Exam General: Reports: Alert, Oriented HEENT: Reports: Pupils Equal, Pupils Reactive, EOMI, Mucous Membr. Moist/[place] Neck: Reports: Supple Lungs: Reports: Clear to Auscultation, Normal Respiratory Effort Cardiovascular: Reports: Regular Rate, Regular Rhythm GI/Abdominal Exam: Normal Bowel Sounds, Soft, Non-Tender, No Organomegaly, No Distention, No Abnormal Bruit, No Mass, Pelvis Stable (Female) Exam: Normal External Exam, Normal Speculum Exam, Normal Bimanual Exam Rectal (Female) Exam: Normal Exam, Normal Rectal Tone Back Exam: Reports: Normal Inspection, Full Range of Motion Extremities: Normal Inspection, Normal Range of Motion, Non-Tender, No Pedal Edema, Normal Capillary Refill Skin: Reports: Warm, Dry, Intact Wound/Incisions: Reports: Healing Well Neurological: Reports: No New Focal Deficit Psy/Mental Status: Reports: Alert, Normal Affect, Normal Mood
== END 2019-08-03 13:15 | disposition home or self-care (01) | DRG 637 ==
LOC: DL.ED 21:08 → DL.MS 23:24 → UNDOADMIN 23:24 → DL.ED 23:27 → DL.MS 07-29 00:58
PROVIDERS: ADMIT Internal Medicine Nephrology; ATTEND Student in an Organized Health Care Education/Training Program
DX: E11.628 Type 2 diabetes mellitus with other skin complications (principal); H54.7 Unspecified visual loss; E78.00 Pure hypercholesterolemia, unspecified; I50.21 Acute systolic (congestive) heart failure; L03.116 Cellulitis of left lower limb; Z95.5 Presence of coronary angioplasty implant and graft; I13.0 Hypertensive heart and chronic kidney disease with heart failure and stage 1 through stage 4 chronic kidney disease, or unspecified chronic kidney disease; I12.9 Hypertensive chronic kidney disease with stage 1 through stage 4 chronic kidney disease, or unspecified chronic kidney disease; N18.3 Chronic kidney disease, stage 3 (moderate); N18.9 Chronic kidney disease, unspecified; E78.5 Hyperlipidemia, unspecified; I38 Endocarditis, valve unspecified; Z85.828 Personal history of other malignant neoplasm of skin; Z86.14 Personal history of Methicillin resistant Staphylococcus aureus infection; M19.90 Unspecified osteoarthritis, unspecified site; E03.9 Hypothyroidism, unspecified; G89.29 Other chronic pain; Z88.8 Allergy status to other drugs, medicaments and biological substances; Z79.01 Long term (current) use of anticoagulants; Z79.84 Long term (current) use of oral hypoglycemic drugs; I73.9 Peripheral vascular disease, unspecified; K21.9 Gastro-esophageal reflux disease without esophagitis; M54.9 Dorsalgia, unspecified; G43.909 Migraine, unspecified, not intractable, without status migrainosus; E11.22 Type 2 diabetes mellitus with diabetic chronic kidney disease; E87.6 Hypokalemia; I48.91 Unspecified atrial fibrillation; I87.2 Venous insufficiency (chronic) (peripheral); Z96.649 Presence of unspecified artificial hip joint; Z79.82 Long term (current) use of aspirin; Z79.899 Other long term (current) drug therapy; I25.2 Old myocardial infarction; Z86.718 Personal history of other venous thrombosis and embolism; Z98.49 Cataract extraction status, unspecified eye; Z95.818 Presence of other cardiac implants and grafts
CPT/HCPCS: 36415; 73590; 80053; 83605; 85025; 85610; 85730; 87040; 87070; 87077; 87186; 96365; 99284 ×2; A9270; J3490; J7050; 80048; 82962; 85027; 97161-GP; 97165-GO; J0696; J1815-GY; J2543; J3370; J3480; Q0163

== ENCOUNTER 2019-09-26 13:14 | Observation (INO) | payer MEDICARE, OTHER ==
--- NOTE | 2019-09-26 13:33 | EDM.PDOC ---
ED HPI GENERAL MEDICAL PROBLEM - General Stated Complaint: LEGS SWOLLEN DOUBLE SIZE Time Seen by Provider: 09/26/19 13:32 Source of Information: Reports: Patient, RN, RN Notes Reviewed History Limitations: Reports: No Limitations - History of Present Illness INITIAL COMMENTS - FREE TEXT/NARRATIVE: Patient presents to ER with her daughter with complaint of swelling to legs bilaterally, with the left being worse. Patient has history of PAD and CHF wit angiogram to the left leg last week. Sores from PAD to the legs bilaterally. Daughter states the patient has had increased weakness since the angiogram. Patient has history of diabetes mellitus as well. Onset: Gradual Duration: Getting Worse Location: Reports: Lower Extremity, Left, Lower Extremity, Right Quality: Reports: Ache Severity: Moderate Improves with: Reports: None Worsens with: Reports: None Associated Symptoms: Reports: No Other Symptoms - Related Data Allergies Allergy/AdvReac Type Severity Reaction Status Date / Time BULMARO Inhibitors Allergy Other Verified 09/26/19 13:40 lisinopril Allergy Cough Verified 09/26/19 13:40 losartan potassium Allergy Cannot Verified 09/26/19 13:40 [From [facility]] Remember Home Meds: Home Meds Acetaminophen [Pain & Fever] 500 mg PO ASDIRECTED PRN 09/28/13 [History] Loratadine [Claritin RediTabs] 5 mg PO DAILY PRN 09/28/13 [History] Multivitamin [Multi-Vitamin Daily] 1 each PO DAILY 09/28/13 [History] Warfarin [Coumadin] 2 mg PO DAILY 09/28/13 [History] Calcium Carb,Gluc/Mag Ox,Gluc [Calcium Magnesium Caplet] 1 tab PO DAILY [History] Calcium Carbonate/Vitamin D3 [Oyster Shell Calcium-Vit D Tab] 1 each PO DAILY [History] Citalopram Hydrobromide [Citalopram HBr] 20 mg PO DAILY 04/04/16 [History] Aspirin [Ecotrin EC] 81 mg PO DAILY 08/21/16 [History] Furosemide [Lasix] 40 mg PO DAILY 08/21/16 [History] Metolazone [Zaroxolyn] 2.5 mg PO .Q48H 08/21/16 [History] Metoprolol Tartrate 50 mg PO DAILY 08/21/16 [History] Metoprolol Tartrate 100 mg PO ACDINNER 08/21/16 [History] atorvaSTATin [Lipitor] 40 mg PO BEDTIME 08/21/16 [History] glipiZIDE [Glucotrol XL] 2.5 mg PO DAILY@0800 #30 tab.er 08/23/16 [Rx] Potassium Chloride [Klor-Con 10] 20 meq PO BIDAC 07/29/19 [History] Acetaminophen/oxyCODONE [Percocet 325-5 MG] 1 tab PO Q6HR PRN 3 Days #10 tablet 08/03/19 [Rx] Linezolid [Zyvox] 600 mg PO Q12H 10 Days #20 tab 08/03/19 [Rx] Past Medical History HEENT History: Reports: Impaired Vision Other HEENT History: wears glasses Cardiovascular History: Reports: Blood Clots/VTE/DVT, High Cholesterol, Hypertension, NC, PVD, Stents Other Cardiovascular History: valvular heart disease Respiratory History: Reports: None Gastrointestinal History: Reports: GERD Genitourinary History: Reports: Chronic Renal Insuffiency, Other (See Below) Other Genitourinary History: renal insufficiency RE DYE HAND History: Reports: Musculoskeletal History: Reports: Arthritis, Other (See Below) Other Musculoskeletal History: HIP REPLACEMENT Neurological History: Reports: Migraines Psychiatric History: Reports: None Endocrine/Metabolic History: Reports: Diabetes, Type II Other Endocrine/Metabolic History: Oral replacement Hematologic History: Reports: None Immunologic History: Reports: None Oncologic (Cancer) History: Reports: Squamous Cell Carcinoma, Other (See Below) Other Oncologic History: skin ca on nose. Dermatologic History: Reports: Venous Stasis Dermatitis Other Dermatologic History: Vein surg. 50 years ago - Infectious Disease History Infectious Disease History: Reports: Chicken Pox, Measles, MRSA, Mumps, Pertussis (Whooping Cough) - Past Surgical History HEENT Surgical History: Reports: Cataract Surgery Cardiovascular Surgical History: Reports: Coronary Artery Stent Musculoskeletal Surgical History: Reports: Hip Replacement Social & Family History - Family History Family Medical History: Noncontributory - Caffeine Use Caffeine Use: Reports: Coffee - Living Situation & Occupation Occupation: Retired ED ROS GENERAL - Review of Systems Review Of Systems: Comprehensive ROS is negative, except as noted in HPI. ED EXAM, GENERAL - Physical Exam Exam: See Below Exam Limited By: No Limitations General Appearance: Alert, WD/WN, No Apparent Distress Eye Exam: Bilateral Eye: EOMI, Normal Inspection, PERRL Ears: Normal External Exam, Normal Canal, Hearing Grossly Normal, Normal TMs Nose: Normal Inspection, Normal Mucosa, No Blood Throat/Mouth: Normal Inspection, Normal Lips, Normal Teeth, Normal Gums, Normal Oropharynx, Normal Voice, No Airway Compromise Head: Atraumatic, Normocephalic Neck: Normal Inspection, Supple, Non-Tender, Full Range of Motion Respiratory/Chest: Other (diminished) Cardiovascular: Other (murmur irregular) GI/Abdominal: Normal Bowel Sounds, Soft, Non-Tender, No Organomegaly, No Distention, No Abnormal Bruit, No Mass (Female) Exam: Deferred Rectal (Female) Exam: Deferred Back Exam: Normal Inspection, Full Range of Motion, NT Extremities: Other (decreased range of motion) Neurological: Alert, Oriented, CN II-XII Intact, Normal Cognition, Normal Gait, Normal Reflexes, No Motor/Sensory Deficits Psychiatric: Normal Affect, Normal Mood Skin Exam: Other (sores to legs bilaterally) Lymphatic: No Adenopathy Course - Vital Signs Last Recorded V/S: Last Vital Signs Temp 97.8 F 09/26/19 17:05 Pulse 88 09/26/19 17:05 Resp 20 09/26/19 17:05 BP 135/90 09/26/19 17:05 Pulse Ox 94 L 09/26/19 17:05 - Orders/Labs/Meds Orders: Active Orders 24 hr Category Date Time Status Peripheral IV Insertion Adult [OM.PC] Stat Oth 09/26/19 16:17 Ordered Medication Orders Acetaminophen (Tylenol) 650 mg PO Q6H PRN PRN Reason: Pain Ondansetron HCl (Zofran Odt) 4 mg PO Q6H PRN PRN Reason: nausea, able to take PO Ondansetron HCl (Zofran) 4 mg IVPUSH Q6H PRN PRN Reason: Nausea/Vomiting Senna/Docusate Sodium (Senna Plus) 1 tab PO BEDTIME PRN PRN Reason: Constipation Sodium Chloride (Saline Flush) 10 ml FLUSH ASDIRECTED PRN PRN Reason: Keep Vein Open Last Admin: 09/26/19 16:25 Dose: 10 ml Labs: Laboratory Tests 09/26/19 09/26/19 09/26/19 Range/Units 13:38 13:38 13:38 WBC 6.7 (5.0-10.0) 10^3/uL RBC 5.14 (4.2-5.4) 10^6/uL Hgb 13.0 (12.0-16.0) g/dL Hct 39.6 (37.0-47.0) % MCV 77.0 L (80-100) fL MCH 25.3 L (27.0-34.0) pg MCHC 32.8 L (33.0-35.0) g/dL Plt Count 158 (150-450) 10^3/uL Neut % (Auto) 66.6 (42.2-75.2) % Lymph % (Auto) 25.7 (20.5-50.1) % Smyth % (Auto) 6.4 (2-8) % Eos % (Auto) 1.0 (1.0-3.0) % Baso % (Auto) 0.3 (0.0-1.0) % D-Dimer, Quantitative 708 H (0-400) ng/mL Sodium 139 (136-145) mmol/L Potassium 4.6 (3.5-5.1) mmol/L Chloride 104 (98-107) mmol/L Carbon Dioxide 28 (21-32) mmol/L Anion Gap 11.6 (7-13) mEq/L BUN 30 H D (7-18) mg/dL Creatinine 2.05 H (0.55-1.02) mg/dL Est Cr Clr Drug Dosing 15.99 mL/min Estimated GFR (MDRD) 23 BUN/Creatinine Ratio 14.6 (No establ ref range) Glucose 162 H (74-99) mg/dL Calcium 8.7 (8.5-10.1) mg/dL Total Bilirubin 0.8 (0.2-1.0) mg/dL AST 30 (15-37) U/L ALT 19 (14-59) U/L Alkaline Phosphatase 142 H (46-116) U/L Troponin I < 0.017 (0.000-0.056) ng/mL B-Natriuretic Peptide 792 H (0-100) pg/ml Total Protein 7.4 (6.4-8.2) g/dL Albumin 3.0 L (3.4-5.0) g/dL Globulin 4.4 Albumin/Globulin Ratio 0.68 Meds: Medications Generic Name Dose Route Start Last Admin Trade Name Freq PRN Reason Stop Dose Admin Acetaminophen 650 mg 09/26/19 17:05 Tylenol PO Q6H PRN Pain Ondansetron HCl 4 mg 09/26/19 17:05 Zofran Odt PO Q6H PRN nausea, able to take PO Ondansetron HCl 4 mg 09/26/19 17:05 Zofran IVPUSH Q6H PRN Nausea/Vomiting Senna/Docusate Sodium 1 tab 09/26/19 17:05 Senna Plus PO BEDTIME PRN Constipation Sodium Chloride 10 ml 09/26/19 16:17 09/26/19 16:25 Saline Flush FLUSH 10 ml ASDIRECTED PRN Administration Keep Vein Open Discontinued Medications Generic Name Dose Route Start Last Admin Trade Name Freq PRN Reason Stop Dose Admin Furosemide 80 mg 09/26/19 16:17 09/26/19 16:28 Lasix IVPUSH 09/26/19 16:18 80 mg NOW ONE Administration - Radiology Interpretation Free Text/Narrative:: Venous Doppler: No sonographic evidence of DVT (either lower extremity). See rad report. Chest x-ray: Abnormal. Heart failure (CHF). See rad report. - Re-Assessments/Exams Free Text/Narrative Re-Assessment/Exam: 09/26/19 17:40 Discussed patient case with Dr. Sanchez who agreed to accept the patient for observation admission. Departure - Departure Time of Disposition: 16:45 Disposition: Admitted As Inpatient 68 Condition: Fair Clinical Impression: PAD (peripheral artery disease), Sore on leg Congestive heart failure Qualifiers: Heart failure type: unspecified Heart failure chronicity: acute on chronic Qualified Code(s): I50.9 - Heart failure, unspecified - Discharge Information *PRESCRIPTION DRUG MONITORING PROGRAM REVIEWED*: No *COPY OF PRESCRIPTION DRUG MONITORING REPORT IN PATIENT DEB: No Sepsis Event Note - Focused Exam Vital Signs: Vital Signs Temp Pulse Resp BP Pulse Ox 09/26/19 13:26 99 F 77 20 142/68 H 97 Date Exam was Performed: 09/26/19 Time Exam was Performed: 17:40 - My Orders Last 24 Hours: My Active Orders 09/26/19 16:17 Peripheral IV Insertion Adult [OM.PC] Stat - Assessment/Plan Last 24 Hours: My Active Orders 09/26/19 16:17 Peripheral IV Insertion Adult [OM.PC] Stat
[2019-09-26 14:10] LABS: ANION GAP 11.6 mEq/L (7-13); CHLORIDE,CL 104 mmol/L (98-107); SODIUM,NA 139 mmol/L (136-145)
--- NOTE | 2019-09-26 14:54 | CR ---
EXAMINATION: Chest 1V Frontal SEX: Female AGE: 89 years CLINICAL HISTORY: 89-year-old female emergency department with CHEST PAIN. INTERPRETATION: (Comparison exam 10 August 2017). Some rotational artifact upright AP film. 1. Borderline cardiomegaly, generalized pulmonary vascular congestion and small dependent new subpulmonic pleural fluid accumulation i.e. effusions. 2. No lung mass, hilar lymphadenopathy or focal lobar pneumonia. 3. No atelectasis/collapse. 4. No pneumothorax. CONCLUSION: Abnormal. Heart failure (CHF). Cardiac enzymes? BNP? EKG?
--- NOTE | 2019-09-26 16:10 | US ---
EXAMINATION: Venous Doppler Lower Ext Bi SEX: Female AGE: 89 years CLINICAL HISTORY: 89-year-old obese diabetic female with history "CHF" and now bilateral leg swelling. Left lower extremity angiogram "last week". Serum D dimer 700. Rule out DVT. Interpretation: Negative exam. No sign of intraluminal echogenic thrombus and normal compressibility deep veins of both groins, thigh, knee and lower extremities. Greater saphenous veins "surgically removed" both lower extremities. Satisfactory augmentation venous waveforms demonstrated respectively in the peroneal/posterior tibial veins of both calves, popliteal veins behind the knees, and proximal femoral veins of both thighs. No popliteal or Coleman's cyst. CONCLUSION: No sonographic evidence DVT (either lower extremity).
[2019-09-26] MEDS ORDERED: Furosemide 40 MG/4 ML VIAL IVPUSH ONE (16:17)
[2019-09-26] MEDS: Sodium Chloride 0.9% 10 ML Syringe FLUSH PRN (16:25)
[2019-09-26] MEDS ORDERED: Ondansetron 4 MG/2 ML SDV IVPUSH PRN (17:05)
[2019-09-26] MEDS ORDERED: Ondansetron 4 MG Tab.DIS PO PRN (17:05)
[2019-09-26] MEDS ORDERED: Acetaminophen 325 MG Tab PO PRN (17:05)
--- NOTE | 2019-09-26 17:09 | PCM.HP ---
H&P History of Present Illness - General Date of Service: 09/26/19 Admit Problem/Dx: Admission Diagnosis/Problem Admission Diagnosis/Problem CHF, Congestive heart failure Source of Information: Patient, Old Records - History of Present Illness Initial Comments - Free Text/Narative: Patient with medical history significant for PAD s/p angiogram on 09/19/2019, HTN , CHF, chronic stasis dermatitis with chronic stasis ulcers, dyslipidemia, Afib , and CKD who presented to the ED with worsening BLE edema, worse on the left side. Reports that her LE have been getting more swollen since her angiogram last week. Reports shortness of breath last night. Denies fevers, chills, chest pain, n/v/d/c, diaphoresis, LH, vertigo, dysuria, or any new symptoms. In the ED , BNP was elevated. She was started on IV lasix. - Related Data Allergies/Adverse Reactions: Allergies Allergy/AdvReac Type Severity Reaction Status Date / Time BULMARO Inhibitors Allergy Other Verified 09/26/19 13:40 lisinopril Allergy Cough Verified 09/26/19 13:40 losartan potassium Allergy Cannot Verified 09/26/19 13:40 [From [facility]] Remember Home Medications: Home Meds Acetaminophen [Pain & Fever] 500 mg PO ASDIRECTED PRN 09/28/13 [History] Loratadine [Claritin RediTabs] 5 mg PO DAILY PRN 09/28/13 [History] Multivitamin [Multi-Vitamin Daily] 1 each PO DAILY 09/28/13 [History] Warfarin [Coumadin] 2 mg PO DAILY 09/28/13 [History] Calcium Carb,Gluc/Mag Ox,Gluc [Calcium Magnesium Caplet] 1 tab PO DAILY [History] Calcium Carbonate/Vitamin D3 [Oyster Shell Calcium-Vit D Tab] 1 each PO DAILY [History] Citalopram Hydrobromide [Citalopram HBr] 20 mg PO DAILY 04/04/16 [History] Aspirin [Ecotrin EC] 81 mg PO DAILY 08/21/16 [History] Furosemide [Lasix] 40 mg PO DAILY 08/21/16 [History] Metolazone [Zaroxolyn] 2.5 mg PO .Q48H 08/21/16 [History] Metoprolol Tartrate 50 mg PO DAILY 08/21/16 [History] Metoprolol Tartrate 100 mg PO ACDINNER 08/21/16 [History] atorvaSTATin [Lipitor] 40 mg PO BEDTIME 08/21/16 [History] glipiZIDE [Glucotrol XL] 2.5 mg PO DAILY@0800 #30 tab.er 08/23/16 [Rx] Potassium Chloride [Klor-Con 10] 20 meq PO BIDAC 07/29/19 [History] Acetaminophen/oxyCODONE [Percocet 325-5 MG] 1 tab PO Q6HR PRN 3 Days #10 tablet 08/03/19 [Rx] Linezolid [Zyvox] 600 mg PO Q12H 10 Days #20 tab 08/03/19 [Rx] Past Medical History HEENT History: Reports: Impaired Vision Other HEENT History: wears glasses Cardiovascular History: Reports: Blood Clots/VTE/DVT, High Cholesterol, Hypertension, MS, PVD, Stents Other Cardiovascular History: valvular heart disease Respiratory History: Reports: None Gastrointestinal History: Reports: GERD Genitourinary History: Reports: Chronic Renal Insuffiency, Other (See Below) Other Genitourinary History: renal insufficiency [place] History: Reports: Musculoskeletal History: Reports: Arthritis, Other (See Below) Other Musculoskeletal History: HIP REPLACEMENT Neurological History: Reports: Migraines Psychiatric History: Reports: None Endocrine/Metabolic History: Reports: Diabetes, Type II Other Endocrine/Metabolic History: Oral replacement Hematologic History: Reports: None Immunologic History: Reports: None Oncologic (Cancer) History: Reports: Squamous Cell Carcinoma, Other (See Below) Other Oncologic History: skin ca on nose. Dermatologic History: Reports: Venous Stasis Dermatitis Other Dermatologic History: Vein surg. 50 years ago - Infectious Disease History Infectious Disease History: Reports: Chicken Pox, Measles, MRSA, Mumps, Pertussis (Whooping Cough) - Past Surgical History HEENT Surgical History: Reports: Cataract Surgery Cardiovascular Surgical History: Reports: Coronary Artery Stent Respiratory Surgical History: Reports: None GI Surgical History: Reports: None Female Surgical History: Reports: None Neurological Surgical History: Reports: None Musculoskeletal Surgical History: Reports: Hip Replacement Social & Family History - Family History Family Medical History: Noncontributory - Tobacco Use Smoking Status *Q: Never Smoker Second Hand Smoke Exposure: No - Caffeine Use Caffeine Use: Reports: None Other Caffeine Use: seldom use - Recreational Drug Use Recreational Drug Use: No - Living Situation & Occupation Occupation: Retired H&P Review of Systems - Review of Systems: Review Of Systems: Comprehensive ROS is negative, except as noted in HPI. Exam - Exam Exam: See Below - Vital Signs Vital Signs: Last Vital Signs Temp 99 F 09/26/19 13:26 Pulse 77 09/26/19 13:26 Resp 20 09/26/19 13:26 BP 142/68 H 09/26/19 13:26 Pulse Ox 97 09/26/19 13:26 Weight: 165 lb 4 oz - Exam General: Alert, Oriented, Mild Distress HEENT: Conjunctiva Clear, EOMI, Hearing Intact, Pupils Equal, Pupils Reactive Neck: Supple, Trachea Midline Lungs: Crackles (Bilateral lower lung mendoza. ) GI/Abdominal Exam: Normal Bowel Sounds, Soft, Non-Tender Extremities: Other (BLE edema with chronic [place] hyperpigementation and venous stasis ulcers, xeroform in lace. No erythema, warmth, or tenderness. ) Skin: Warm, Dry, Intact Neuro Extensive - Mental Status: Alert, Oriented x3, Normal Mood/Affect Psychiatric: Alert, Normal Affect, Normal Mood - Patient Data Lab Results Last 24 hrs: Laboratory Results - last 24 hr 09/26/19 09/26/19 09/26/19 Range/Units 13:38 13:38 13:38 WBC 6.7 (5.0-10.0) 10^3/uL RBC 5.14 (4.2-5.4) 10^6/uL Hgb 13.0 (12.0-16.0) g/dL Hct 39.6 (37.0-47.0) % MCV 77.0 L (80-100) fL MCH 25.3 L (27.0-34.0) pg MCHC 32.8 L (33.0-35.0) g/dL Plt Count 158 (150-450) 10^3/uL Neut % (Auto) 66.6 (42.2-75.2) % Lymph % (Auto) 25.7 (20.5-50.1) % Cavalier % (Auto) 6.4 (2-8) % Eos % (Auto) 1.0 (1.0-3.0) % Baso % (Auto) 0.3 (0.0-1.0) % D-Dimer, Quantitative 708 H (0-400) ng/mL Sodium 139 (136-145) mmol/L Potassium 4.6 (3.5-5.1) mmol/L Chloride 104 (98-107) mmol/L Carbon Dioxide 28 (21-32) mmol/L Anion Gap 11.6 (7-13) mEq/L BUN 30 H D (7-18) mg/dL Creatinine 2.05 H (0.55-1.02) mg/dL Est Cr Clr Drug Dosing 15.99 mL/min Estimated GFR (MDRD) 23 BUN/Creatinine Ratio 14.6 (No establ ref range) Glucose 162 H (74-99) mg/dL Calcium 8.7 (8.5-10.1) mg/dL Total Bilirubin 0.8 (0.2-1.0) mg/dL AST 30 (15-37) U/L ALT 19 (14-59) U/L Alkaline Phosphatase 142 H (46-116) U/L Troponin I < 0.017 (0.000-0.056) ng/mL B-Natriuretic Peptide 792 H (0-100) pg/ml Total Protein 7.4 (6.4-8.2) g/dL Albumin 3.0 L (3.4-5.0) g/dL Globulin 4.4 Albumin/Globulin Ratio 0.68 Result Diagrams: 09/26/19 13:38 09/26/19 13:38 - Problem List (1) Congestive heart failure SNOMED Code(s): 56858559 ICD Code: I50.9 - HEART FAILURE, UNSPECIFIED Status: Acute Current Visit : Yes (2) Atrial fibrillation SNOMED Code(s): 28476498 ICD Code: I48.91 - UNSPECIFIED ATRIAL FIBRILLATION Status: Acute Current Visit: Yes Qualifiers: Atrial fibrillation type: unspecified Qualified Code(s): I48.91 - Unspecified atrial fibrillation (3) Hypertension SNOMED Code(s): 94986642 ICD Code: I10 - ESSENTIAL (PRIMARY) HYPERTENSION Status: Acute Current Visit: Yes Qualifiers: Hypertension type: unspecified secondary hypertension Qualified Code(s): I15.9 - Secondary hypertension, unspecified (4) Venous stasis dermatitis SNOMED Code(s): 55883626 ICD Code: I87.2 - VENOUS INSUFFICIENCY (CHRONIC) (PERIPHERAL) Status: Acute Current Visit: Yes Qualifiers: Laterality: bilateral Qualified Code(s): I87.2 - Venous insufficiency ( chronic) (peripheral) (5) CKD (chronic kidney disease) stage 3, GFR 30-59 ml/min SNOMED Code(s): 192760960 ICD Code: N18.3 - CHRONIC KIDNEY DISEASE, STAGE 3 (MODERATE) Status: Acute Current Visit: Yes Problem List Initiated/Reviewed/Updated: Yes Orders Last 24hrs: Active Orders 24 hr Category Date Time Status Admission Diagnosis [ADT] Stat ADT 09/26/19 16:17 Ordered Patient Status [ADT] Routine ADT 09/26/19 16:17 Active EKG Documentation Completion [RC] STAT Care 09/26/19 16:17 Active Height and Weight [RC] DAILY Care 09/26/19 17:05 Ordered Intake and Output [RC] QSHIFT Care 09/26/19 17:06 Ordered Oxygen Therapy [RC] PRN Care 09/26/19 17:05 Ordered Peripheral IV Care [RC] . DIRECTED Care 09/26/19 16:17 Active Up With Assistance [RC] ASDIRECTED Care 09/26/19 17:05 Ordered VTE/DVT Education [RC] PER UNIT ROUTINE Care 09/26/19 17:05 Ordered Vital Signs [RC] Q4H Care 09/26/19 17:05 Ordered OT Evaluation and Treatment [CONS] Routine Cons 09/26/19 17:05 Ordered PT Evaluation and Treatment [CONS] Routine Cons 09/26/19 17:05 Ordered 2 Gram Sodium Diet [DIET] Diet 09/26/19 Dinner Ordered BASIC METABOLIC PANEL,BMP [CHEM] AM Lab 09/27/19 05:11 Ordered MAGNESIUM [CHEM] AM Lab 09/27/19 05:11 Ordered Acetaminophen [Tylenol] Med 09/26/19 17:05 Ordered 650 mg PO Q6H PRN Docusate Sodium/Sennosides [Senna Plus] Med 09/26/19 17:05 Ordered 1 tab PO BEDTIME PRN Ondansetron [Zofran ODT] Med 09/26/19 17:05 Ordered 4 mg PO Q6H PRN Ondansetron [Zofran] Med 09/26/19 17:05 Ordered 4 mg IVPUSH Q6H PRN Sodium Chloride 0.9% [Saline Flush] Med 09/26/19 16:17 Active 10 ml FLUSH ASDIRECTED PRN Peripheral IV Insertion Adult [OM.PC] Stat Oth 09/26/19 16:17 Ordered Resuscitation Status Routine Resus Stat 09/26/19 17:05 Ordered Medication Orders Acetaminophen (Tylenol) 650 mg PO Q6H PRN PRN Reason: Pain Ondansetron HCl (Zofran Odt) 4 mg PO Q6H PRN PRN Reason: nausea, able to take PO Ondansetron HCl (Zofran) 4 mg IVPUSH Q6H PRN PRN Reason: Nausea/Vomiting Senna/Docusate Sodium (Senna Plus) 1 tab PO BEDTIME PRN PRN Reason: Constipation Sodium Chloride (Saline Flush) 10 ml FLUSH ASDIRECTED PRN PRN Reason: Keep Vein Open Last Admin: 09/26/19 16:25 Dose: 10 ml Assessment/Plan Comment:: #Acute on chronic CHF exacerbation: Patient with SOB last night. CXR shows vascular congestion. BLE swollen. Elevated BNP. - IV diuresis - Strict I/Os. - 1500 cc daily fluid restrictions - continue CHF meds #Weakness: -PT/OT #HTN: BP at goal - Continue home medications. #Chronic stasis ulcers: do not appear infected. - Routine wound care. #CKD III: - Monitor renal function - Avoid nephrotoxins - Renal dosing of meds. #Afib: on warfarin - Rate controlled. - Continue home meds. #DVT PPx: Warfarin #GI PPx: cardiac diet. Code status: DNR/DNI per patient preference.
[2019-09-26] MEDS ORDERED: Potassium Chloride 10 MEQ Tab.ER PO SCH (18:15)
[2019-09-27] MEDS: Acetaminophen/oxyCODONE 325-5 MG Tab PO PRN ×3 (00:10→21:39)
[2019-09-27 06:53] LABS: ANION GAP 10.4 mEq/L (7-13)
[2019-09-27] MEDS: Furosemide 40 MG Tab PO SCH (08:54)
[2019-09-27] MEDS: Citalopram 20 MG Tab PO SCH (08:55)
[2019-09-27] MEDS ORDERED: Metoprolol Tartrate 50 MG Tab PO SCH (09:00)
[2019-09-27] MEDS ORDERED: Potassium Chloride 10 MEQ Tab.ER PO SCH ×2 (09:00→12:00)
[2019-09-27] MEDS ORDERED: Furosemide 40 MG/4 ML VIAL IVPUSH ONE (10:00)
--- NOTE | 2019-09-27 10:01 | PCM.PN ---
- General Info Date of Service: 09/27/19 Admission Dx/Problem (Free Text): Admission Diagnosis/Problem Admission Diagnosis/Problem CHF, Congestive heart failure Subjective Update: Patient had significant diuresis overnight. Still has edema of the lower extremities. Shortness of breath is improved. Denies chest pain, fevers, chills , nausea, vomiting, d/c, dysuria, or any other symptoms. - Patient Data Vitals - Most Recent: Last Vital Signs Temp 97.4 F 09/27/19 07:17 Pulse 68 09/27/19 08:53 Resp 18 09/27/19 07:17 BP 111/53 L 09/27/19 08:53 Pulse Ox 97 09/27/19 07:17 Weight - Most Recent: 160 lb 9.6 oz I&O - Last 24 Hours: Intake & Output 09/26/19 09/27/19 09/27/19 22:59 06:59 14:59 Intake Total 500 240 Output Total 1000 2000 Balance -1000 -1500 240 Lab Results Last 24 Hours: Laboratory Results - last 24 hr 09/26/19 09/26/19 09/26/19 Range/Units 13:38 13:38 13:38 WBC 6.7 (5.0-10.0) 10^3/uL RBC 5.14 (4.2-5.4) 10^6/uL Hgb 13.0 (12.0-16.0) g/dL Hct 39.6 (37.0-47.0) % MCV 77.0 L (80-100) fL MCH 25.3 L (27.0-34.0) pg MCHC 32.8 L (33.0-35.0) g/dL Plt Count 158 (150-450) 10^3/uL Neut % (Auto) 66.6 (42.2-75.2) % Lymph % (Auto) 25.7 (20.5-50.1) % Hill % (Auto) 6.4 (2-8) % Eos % (Auto) 1.0 (1.0-3.0) % Baso % (Auto) 0.3 (0.0-1.0) % D-Dimer, Quantitative 708 H (0-400) ng/mL Sodium 139 (136-145) mmol/L Potassium 4.6 (3.5-5.1) mmol/L Chloride 104 (98-107) mmol/L Carbon Dioxide 28 (21-32) mmol/L Anion Gap 11.6 (7-13) mEq/L BUN 30 H D (7-18) mg/dL Creatinine 2.05 H (0.55-1.02) mg/dL Est Cr Clr Drug Dosing 15.99 mL/min Estimated GFR (MDRD) 23 BUN/Creatinine Ratio 14.6 (No establ ref range) Glucose 162 H (74-99) mg/dL POC Glucose (83-110) mg/dl Calcium 8.7 (8.5-10.1) mg/dL Magnesium (1.8-2.4) mg/dL Total Bilirubin 0.8 (0.2-1.0) mg/dL AST 30 (15-37) U/L ALT 19 (14-59) U/L Alkaline Phosphatase 142 H (46-116) U/L Troponin I < 0.017 (0.000-0.056) ng/mL B-Natriuretic Peptide 792 H (0-100) pg/ml Total Protein 7.4 (6.4-8.2) g/dL Albumin 3.0 L (3.4-5.0) g/dL Globulin 4.4 Albumin/Globulin Ratio 0.68 09/25/09/27/19 Range/Units 21:06 06:09 WBC (5.0-10.0) 10^3/uL RBC (4.2-5.4) 10^6/uL Hgb (12.0-16.0) g/dL Hct (37.0-47.0) % MCV (80-100) fL MCH (27.0-34.0) pg MCHC (33.0-35.0) g/dL Plt Count (150-450) 10^3/uL Neut % (Auto) (42.2-75.2) % Lymph % (Auto) (20.5-50.1) % Hill % (Auto) (2-8) % Eos % (Auto) (1.0-3.0) % Baso % (Auto) (0.0-1.0) % D-Dimer, Quantitative (0-400) ng/mL Sodium 142 (136-145) mmol/L Potassium 4.4 (3.5-5.1) mmol/L Chloride 104 (98-107) mmol/L Carbon Dioxide 32 (21-32) mmol/L Anion Gap 10.4 (7-13) mEq/L BUN 31 H (7-18) mg/dL Creatinine 1.75 H (0.55-1.02) mg/dL Est Cr Clr Drug Dosing 18.73 mL/min Estimated GFR (MDRD) 27 BUN/Creatinine Ratio (No establ ref range) Glucose 117 H (74-99) mg/dL POC Glucose 86 (83-110) mg/dl Calcium 8.6 (8.5-10.1) mg/dL Magnesium 1.6 L (1.8-2.4) mg/dL Total Bilirubin (0.2-1.0) mg/dL AST (15-37) U/L ALT (14-59) U/L Alkaline Phosphatase (46-116) U/L Troponin I (0.000-0.056) ng/mL B-Natriuretic Peptide (0-100) pg/ml Total Protein (6.4-8.2) g/dL Albumin (3.4-5.0) g/dL Globulin Albumin/Globulin Ratio Med Orders - Current: Current Medications Acetaminophen (Tylenol) 650 mg PO Q6H PRN PRN Reason: Pain (mild 1-3) Citalopram Hydrobromide (Celexa) 20 mg PO DAILY [facility] Last Admin: 09/27/19 08:55 Dose: 20 mg Furosemide (Lasix) 40 mg PO DAILY [facility] Last Admin: 09/27/19 08:54 Dose: 40 mg Furosemide (Lasix) 40 mg IVPUSH NOW ONE Stop: 09/27/19 09:50 Magnesium Oxide (Magnesium Oxide) 250 mg PO WITHBREAKFAST [facility] Metoprolol Tartrate (Lopressor) 100 mg PO DAILY [facility] Last Admin: 09/27/19 08:53 Dose: 100 mg Ondansetron HCl (Zofran Odt) 4 mg PO Q6H PRN PRN Reason: nausea, able to take PO Last Admin: 09/27/19 00:11 Dose: 4 mg Ondansetron HCl (Zofran) 4 mg IVPUSH Q6H PRN PRN Reason: Nausea/Vomiting Oxycodone/Acetaminophen (Percocet 325-5 Mg) 1 tab PO Q6HR PRN PRN Reason: Pain (severe 7-10) Last Admin: 09/27/19 08:54 Dose: 1 tab Potassium Chloride (Klor-Con 10) 40 meq PO BID@0900,1800 [facility] Last Admin: 09/27/19 08:53 Dose: 40 meq Senna/Docusate Sodium (Senna Plus) 1 tab PO BEDTIME PRN PRN Reason: Constipation Warfarin Sodium (Coumadin) 2 mg PO DAILY@1400 [facility] Warfarin Sodium (Pharmacy To Dose - Warfarin) 0 dose .XX ASDIRECTED [facility] Discontinued Medications Furosemide (Lasix) 80 mg IVPUSH NOW ONE Stop: 09/26/19 16:18 Last Admin: 09/26/19 16:28 Dose: 80 mg Potassium Chloride (Klor-Con 10) 40 meq PO BIDAC [facility] Last Admin: 09/26/19 18:23 Dose: 40 meq Sodium Chloride (Saline Flush) 10 ml FLUSH ASDIRECTED PRN PRN Reason: Keep Vein Open Last Admin: 09/26/19 16:25 Dose: 10 ml - Exam General: Alert, Oriented, Cooperative, No Acute Distress HEENT: Pupils Equal, Pupils Reactive, Mucous Membr. Moist/[place] Neck: Supple, Trachea Midline Lungs: Crackles (Bilateral lower lungs. ) Cardiovascular: Regular Rate, Regular Rhythm, Murmurs GI/Abdominal Exam: Normal Bowel Sounds, Soft, Non-Tender, No Distention Extremities: Pedal Edema (BLE edema, Lt > Rt; chronic venous stasis hyperpigmentation and venous stasis ulcers. Edema is a bit improved compared to presentation.) Skin: Warm, Dry, Intact Wound/Incisions: Healing Well Neurological: No New Focal Deficit Psy/Mental Status: Alert, Normal Affect, Normal Mood Sepsis Event Note - Evaluation Sepsis Screening Result: No Definite Risk - Focused Exam Vital Signs: Vital Signs Temp Pulse Pulse Resp BP BP Pulse Ox 09/27/19 08:53 68 111/53 L 09/27/19 07:17 97.4 F 68 18 111/53 L 97 09/27/19 05:00 98 F 80 20 102/56 L 98 09/27/19 00:00 98 F 79 20 137/86 98 Date Exam was Performed: 09/27/19 Time Exam was Performed: 09:50 - Problem List & Annotations (1) Congestive heart failure SNOMED Code(s): 74777513 Code(s): I50.9 - HEART FAILURE, UNSPECIFIED Status: Acute Current Visit: Yes Qualifiers: Heart failure type: unspecified Heart failure chronicity: acute on chronic Qualified Code(s): I50.9 - Heart failure, unspecified (2) Atrial fibrillation SNOMED Code(s): 42188148 Code(s): I48.91 - UNSPECIFIED ATRIAL FIBRILLATION Status: Acute Current Visit: Yes Qualifiers: Atrial fibrillation type: unspecified Qualified Code(s): I48.91 - Unspecified atrial fibrillation (3) Hypertension SNOMED Code(s): 00194812 Code(s): I10 - ESSENTIAL (PRIMARY) HYPERTENSION Status: Acute Current Visit: Yes Qualifiers: Hypertension type: unspecified secondary hypertension Qualified Code(s): I15.9 - Secondary hypertension, unspecified (4) Venous stasis dermatitis SNOMED Code(s): 21262762 Code(s): I87.2 - VENOUS INSUFFICIENCY (CHRONIC) (PERIPHERAL) Status: Acute Current Visit: Yes Qualifiers: Laterality: bilateral Qualified Code(s): I87.2 - Venous insufficiency ( chronic) (peripheral) (5) CKD (chronic kidney disease) stage 3, GFR 30-59 ml/min SNOMED Code(s): 392777211 Code(s): N18.3 - CHRONIC KIDNEY DISEASE, STAGE 3 (MODERATE) Status: Acute Current Visit: Yes (6) Acute kidney injury superimposed on CKD SNOMED Code(s): 10049609 Code(s): N17.9 - ACUTE KIDNEY FAILURE, UNSPECIFIED; N18.9 - CHRONIC KIDNEY DISEASE, UNSPECIFIED Status: Acute Current Visit: Yes (7) Hypomagnesemia SNOMED Code(s): 273128400 Code(s): E83.42 - HYPOMAGNESEMIA Status: Acute Current Visit: Yes - Problem List Review Problem List Initiated/Reviewed/Updated: Yes - My Orders Last 24 Hours: My Active Orders 09/26/19 17:05 Height and Weight [RC] 06 Oxygen Therapy [RC] PRN Up With Assistance [RC] ASDIRECTED VTE/DVT Education [RC] PER UNIT ROUTINE Vital Signs [RC] 00,04,08,12,16,20 OT Evaluation and Treatment [CONS] Routine PT Evaluation and Treatment [CONS] Routine Acetaminophen [Tylenol] 650 mg PO Q6H PRN Docusate Sodium/Sennosides [Senna Plus] 1 tab PO BEDTIME PRN Ondansetron [Zofran ODT] 4 mg PO Q6H PRN Ondansetron [Zofran] 4 mg IVPUSH Q6H PRN Resuscitation Status Routine 09/26/19 17:06 Intake and Output [RC] QSHIFT 09/26/19 18:05 Acetaminophen/oxyCODONE [Percocet 325-5 MG] 1 tab PO Q6HR PRN 09/26/19 Dinner 2 Gram Sodium Diet [DIET] 09/27/19 08:45 Pharmacy to Dose - Warfarin 0 dose .XX ASDIRECTED 09/27/19 09:00 Citalopram [Celexa] 20 mg PO DAILY Furosemide [Lasix] 40 mg PO DAILY Metoprolol Tartrate [Lopressor] 100 mg PO DAILY Potassium Chloride [Klor-Con 10] 40 meq PO BID@0900,1800 09/27/19 09:49 Furosemide [Lasix] 40 mg IVPUSH NOW ONE 09/27/19 14:00 Warfarin [Coumadin] 2 mg PO DAILY@1400 09/28/19 10:00 Magnesium Oxide 250 mg PO WITHBREAKFAST - Plan Plan:: #Acute on chronic CHF exacerbation: Patient with SOB last night. CXR showed vascular congestion. BLE remains swollen but is improved. Elevated was BNP. - IV diuresis - Strict I/Os. - 1500 cc daily fluid restrictions - continue CHF meds - Elevate LE when seated or in bed. #Weakness: -PT/OT #HTN: BP at goal - Continue home medications. #Chronic stasis ulcers: do not appear infected. - Routine wound care. #Cardiorenal syndrome: #HARLEY on CKD IV: -Cr of 2.05 on presentation; down to 1.75 with diuresis. - Monitor renal function - Avoid nephrotoxins - Renal dosing of meds. #Afib: on warfarin - Rate controlled. - Continue home meds. - Pharmacy to dose warfarin #Hypomagnesemia: Likely due to IV diuresis. - Oral mag ox. - Monitor and replace electrolytes. #DVT PPx: Warfarin #GI PPx: cardiac diet. Code status: DNR/DNI per patient preference.
[2019-09-27] MEDS: Sodium Chloride 0.9% 10 ML Syringe FLUSH PRN (10:14)
[2019-09-27] MEDS ORDERED: Warfarin 2 MG Tab PO ONE (14:00)
[2019-09-27] MEDS ORDERED: Warfarin 2 MG Tab PO SCH (14:00)
[2019-09-27] MEDS ORDERED: Metoprolol Succinate 50 MG Tab.ER PO SCH (21:00)
[2019-09-28] MEDS: Acetaminophen/oxyCODONE 325-5 MG Tab PO PRN (07:40)
[2019-09-28 08:18] VITALS: BP 124/56; PULSE 72
[2019-09-28] MEDS ORDERED: Metoprolol Succinate 50 MG Tab.ER PO SCH (09:00)
[2019-09-28] MEDS ORDERED: Potassium Chloride 10 MEQ Tab.ER PO SCH (09:00)
[2019-09-28] MEDS: Citalopram 20 MG Tab PO SCH (09:12)
[2019-09-28] MEDS: Furosemide 40 MG Tab PO SCH (09:13)
--- NOTE | 2019-09-28 09:59 | PCM.DCSUM1 ---
Discharge Summary - Hospital Course Free Text/Narrative:: Patient with medical history significant for PAD s/p angiogram on 09/19/2019, HTN , CHF, chronic stasis dermatitis with chronic stasis ulcers, dyslipidemia, Afib , and CKD who was admitted for acute on chronic diastolic heart failure. In the ED, BNP was elevated. She was started on IV lasix with significant diuresis. Edema of lower extremities improved. Respiratory status improved and she was saturating well on room air. Mag was borderline low at 1.6 and was replaced with oral magnesium oxide. She is being discharged home. Patient plans to move in with her daughter in [place] on 09/30/2019. HPI Initial Comments: Patient with medical history significant for PAD s/p angiogram on 09/19/2019, HTN , CHF, chronic stasis dermatitis with chronic stasis ulcers, dyslipidemia, Afib , and CKD who presented to the ED with worsening BLE edema, worse on the left side. Reports that her LE have been getting more swollen since her angiogram last week. Reports shortness of breath last night. Denies fevers, chills, chest pain, n/v/d/c, diaphoresis, LH, vertigo, dysuria, or any new symptoms. In the ED , BNP was elevated. She was started on IV lasix. Diagnosis: Stroke: No - Discharge Data Discharge Date: 09/28/19 Discharge Disposition: Home, Self-Care 01 Condition: Stable - Referral to Home Health Primary Care Physician: Florida Jackson NP - Discharge Diagnosis/Problem(s) (1) Congestive heart failure SNOMED Code(s): 97308722 ICD Code: I50.9 - HEART FAILURE, UNSPECIFIED Status: Acute Current Visit : Yes Qualifiers: Heart failure type: unspecified Heart failure chronicity: acute on chronic Qualified Code(s): I50.9 - Heart failure, unspecified (2) Atrial fibrillation SNOMED Code(s): 11008200 ICD Code: I48.91 - UNSPECIFIED ATRIAL FIBRILLATION Status: Acute Current Visit: Yes Qualifiers: Atrial fibrillation type: unspecified Qualified Code(s): I48.91 - Unspecified atrial fibrillation (3) Hypertension SNOMED Code(s): 58580342 ICD Code: I10 - ESSENTIAL (PRIMARY) HYPERTENSION Status: Acute Current Visit: Yes Qualifiers: Hypertension type: unspecified secondary hypertension Qualified Code(s): I15.9 - Secondary hypertension, unspecified (4) Venous stasis dermatitis SNOMED Code(s): 05299529 ICD Code: I87.2 - VENOUS INSUFFICIENCY (CHRONIC) (PERIPHERAL) Status: Acute Current Visit: Yes Qualifiers: Laterality: bilateral Qualified Code(s): I87.2 - Venous insufficiency ( chronic) (peripheral) (5) CKD (chronic kidney disease) stage 3, GFR 30-59 ml/min SNOMED Code(s): 528280509 ICD Code: N18.3 - CHRONIC KIDNEY DISEASE, STAGE 3 (MODERATE) Status: Acute Current Visit: Yes (6) Acute kidney injury superimposed on CKD SNOMED Code(s): 32021831 ICD Code: N17.9 - ACUTE KIDNEY FAILURE, UNSPECIFIED; N18.9 - CHRONIC KIDNEY DISEASE, UNSPECIFIED Status: Acute Current Visit: Yes (7) Hypomagnesemia SNOMED Code(s): 418144144 ICD Code: E83.42 - HYPOMAGNESEMIA Status: Acute Current Visit: Yes - Patient Summary/Data Consults: Consultations 09/26/19 17:05 OT Evaluation and Treatment [CONS] Routine PT Evaluation and Treatment [CONS] Routine 09/27/19 11:16 OT Evaluation and Treatment [CONS] Routine - Discharge Plan *PRESCRIPTION DRUG MONITORING PROGRAM REVIEWED*: No *COPY OF PRESCRIPTION DRUG MONITORING REPORT IN PATIENT DEB: No Home Medications: Home Meds Warfarin [Coumadin] 2 mg PO DAILY 09/28/13 [History] Citalopram Hydrobromide [Citalopram HBr] 20 mg PO DAILY 04/04/16 [History] Furosemide [Lasix] 40 mg PO DAILY 08/21/16 [History] Potassium Chloride [Klor-Con 10] 40 meq PO DAILY 07/29/19 [History] Acetaminophen/oxyCODONE [Percocet 325-5 MG] 1 tab PO Q6HR PRN 3 Days #10 tablet 08/03/19 [Rx] Metoprolol Succinate 50 mg PO BEDTIME 09/27/19 [History] Metoprolol Succinate [Toprol Xl] 100 mg PO DAILY 09/27/19 [History] Potassium Chloride 20 meq PO WITHLUNCH 09/27/19 [History] Warfarin [Coumadin] 3 mg PO WEEKLY 09/27/19 [History] oxyCODONE HCl/Acetaminophen [Oxycodone-Acetaminophen 5-325] 1 each PO Q6H PRN [History] Patient Handouts: Heart Failure, [id number] Referrals: Florida Jackson NP [Primary Care Provider] - - Discharge Summary/Plan Comment DC Time >30 min.: Yes - General Info Date of Service: 09/28/19 Admission Dx/Problem (Free Text: Admission Diagnosis/Problem Admission Diagnosis/Problem CHF, Congestive heart failure Subjective Update: Patient had significant diuresis overnight. Edema of lower extremities improved. Lymphedema wraps in place. Shortness of breath is resolved. Denies chest pain, fevers, chills, nausea, vomiting, d/c, dysuria, or any other symptoms. - Patient Data Vitals - Most Recent: Last Vital Signs Temp 97.5 F 09/28/19 08:00 Pulse 72 09/28/19 09:13 Resp 16 09/28/19 08:00 BP 124/56 L 09/28/19 09:13 Pulse Ox 96 09/28/19 08:00 Weight - Most Recent: 162 lb I&O - Last 24 hours: Intake & Output 09/27/19 09/28/19 09/28/19 22:59 06:59 14:59 Intake Total 240 100 250 Output Total 400 1000 Balance -160 -900 250 Lab Results - Last 24 hrs: Laboratory Results - last 24 hr 09/27/19 09/28/19 Range/Units 11:50 06:00 PT 26.0 H D 27.7 H (9.0-12.0) SEC INR 2.8 H 3.0 H (0.9-1.2) Med Orders - Current: Current Medications Acetaminophen (Tylenol) 650 mg PO Q6H PRN PRN Reason: Pain (mild 1-3) Citalopram Hydrobromide (Celexa) 20 mg PO DAILY [facility] Last Admin: 09/28/19 09:12 Dose: 20 mg Furosemide (Lasix) 40 mg PO DAILY [facility] Last Admin: 09/28/19 09:13 Dose: 40 mg Magnesium Oxide (Magnesium Oxide) 250 mg PO WITHBREAKFAST [facility] Last Admin: 09/28/19 09:13 Dose: 250 mg Metoprolol Succinate (Toprol Xl) 100 mg PO DAILY [facility] Last Admin: 09/28/19 09:13 Dose: 100 mg Metoprolol Succinate (Toprol Xl) 50 mg PO BEDTIME [facility] Last Admin: 09/27/19 20:23 Dose: Not Given Ondansetron HCl (Zofran Odt) 4 mg PO Q6H PRN PRN Reason: nausea, able to take PO Last Admin: 09/27/19 00:11 Dose: 4 mg Ondansetron HCl (Zofran) 4 mg IVPUSH Q6H PRN PRN Reason: Nausea/Vomiting Oxycodone/Acetaminophen (Percocet 325-5 Mg) 1 tab PO Q6HR PRN PRN Reason: Pain (severe 7-10) Last Admin: 09/28/19 07:40 Dose: 1 tab Potassium Chloride (Klor-Con 10) 20 meq PO WITHLUNCH [facility] Last Admin: 09/27/19 11:59 Dose: 20 meq Potassium Chloride (Klor-Con 10) 40 meq PO DAILY [facility] Last Admin: 09/28/19 09:14 Dose: 40 meq Senna/Docusate Sodium (Senna Plus) 1 tab PO BEDTIME PRN PRN Reason: Constipation Warfarin Sodium (Pharmacy To Dose - Warfarin) 0 dose .XX ASDIRECTED [facility] Discontinued Medications Furosemide (Lasix) 80 mg IVPUSH NOW ONE Stop: 09/26/19 16:18 Last Admin: 09/26/19 16:28 Dose: 80 mg Furosemide (Lasix) 40 mg IVPUSH NOW ONE Stop: 09/27/19 10:01 Last Admin: 09/27/19 10:14 Dose: 40 mg Metoprolol Tartrate (Lopressor) 100 mg PO DAILY [facility] Last Admin: 09/27/19 08:53 Dose: 100 mg Potassium Chloride (Klor-Con 10) 40 meq PO BIDAC [facility] Last Admin: 09/26/19 18:23 Dose: 40 meq Potassium Chloride (Klor-Con 10) 40 meq PO BID@0900,1800 [facility] Last Admin: 09/27/19 08:53 Dose: 40 meq Sodium Chloride (Saline Flush) 10 ml FLUSH ASDIRECTED PRN PRN Reason: Keep Vein Open Last Admin: 09/27/19 10:14 Dose: 10 ml Warfarin Sodium (Pharmacy To Dose - Warfarin) 0 dose .XX ASDIRECTED [facility] Warfarin Sodium (Coumadin) 2 mg PO ONETIME ONE Stop: 09/27/19 14:01 Last Admin: 09/27/19 13:47 Dose: 2 mg - Exam General: Reports: Alert, Oriented, Cooperative, No Acute Distress HEENT: Reports: Pupils Equal, Pupils Reactive, Mucous Membr. Moist/[place] Neck: Reports: Supple, Trachea Midline Lungs: Reports: Clear to Auscultation Cardiovascular: Reports: Regular Rate, Irregular Rhythm, Murmurs GI/Abdominal Exam: Normal Bowel Sounds, Soft, Non-Tender, No Distention Extremities: Pedal Edema (Edema of bilateral lower extremities improved. ), Other (Lymphedema wraps in place) Skin: Reports: Warm, Dry, Other (Chronic stasis ulcers) Wound/Incisions: Reports: Healing Well, Dressing Dry and Intact Neurological: Reports: No New Focal Deficit Psy/Mental Status: Reports: Alert, Normal Affect, Normal Mood
== END 2019-09-28 11:15 | disposition home or self-care (01) ==
LOC: DL.ED 13:14 → UNDOADMOB 16:17 → DL.MS 16:17 → UNDODISOB 09-28 11:15
PROVIDERS: ADMIT Internal Medicine; ATTEND Internal Medicine
DX: I13.0 Hypertensive heart and chronic kidney disease with heart failure and stage 1 through stage 4 chronic kidney disease, or unspecified chronic kidney disease (principal); I50.33 Acute on chronic diastolic (congestive) heart failure; E11.22 Type 2 diabetes mellitus with diabetic chronic kidney disease; N18.3 Chronic kidney disease, stage 3 (moderate); N17.9 Acute kidney failure, unspecified; E83.42 Hypomagnesemia; I83.018 Varicose veins of right lower extremity with ulcer other part of lower leg; I83.028 Varicose veins of left lower extremity with ulcer other part of lower leg; L97.819 Non-pressure chronic ulcer of other part of right lower leg with unspecified severity; L97.829 Non-pressure chronic ulcer of other part of left lower leg with unspecified severity; K21.9 Gastro-esophageal reflux disease without esophagitis; I73.9 Peripheral vascular disease, unspecified; I15.9 Secondary hypertension, unspecified; E78.5 Hyperlipidemia, unspecified; I48.91 Unspecified atrial fibrillation; E78.00 Pure hypercholesterolemia, unspecified; I87.2 Venous insufficiency (chronic) (peripheral); Z88.8 Allergy status to other drugs, medicaments and biological substances; Z66 Do not resuscitate; Z79.01 Long term (current) use of anticoagulants; Z79.899 Other long term (current) drug therapy; Z79.82 Long term (current) use of aspirin; Z79.84 Long term (current) use of oral hypoglycemic drugs
CPT/HCPCS: 36415; 71045; 80048; 80053; 82962; 83735; 83880; 84484; 85025; 85379; 85610; 93005; 93970; 96374; 96376; 97161-GP; 97165-GO; 99285-25; A9270-GY; G0378; J1940